=== PATIENT | male | born 1950 | race Caucasian/White ===

== ENCOUNTER 2019-03-13 08:40 | Outpatient (REF) | payer MEDICARE, SELFPAY | END 2019-03-13 08:41 | disposition home or self-care (01) | LOC: LAB 08:40 | PROVIDERS: Family Provider Family Medicine; PCP Family Medicine; Visit Provider Dermatology | DX: Z01.89 Encounter for other specified special examinations (principal) | CPT/HCPCS: 87077; 87086; 87186 ==

== ENCOUNTER 2019-05-01 16:28 | Observation (INO) | payer MEDICARE, SELFPAY ==
[2019-05-01] VITALS (7 sets, daily range): BP systolic 90–138; BP diastolic 41–59; PULSE 48–57; RESP 12–22; TEMP 37; O2SAT 91–97
--- NOTE | 2019-05-01 17:12 | XR_ITS ---
WS: [id number] CHEST XRAY TECHNIQUE: Portable chest. CLINICAL INFORMATION: resp distress COMPARISON: None. FINDINGS: Heart: Normal cardiac silhouette. Aortic calcification. Lungs: Lungs are clear. No consolidation or pleural effusion. Bones: Hypertrophic changes thoracic spine. XR/XR chest 1V portable [id number] IMPRESSION: Normal chest
[2019-05-01] MEDS: ondansetron 2 mg/ML SDV 2 mL 4 MG IVP (18:03)
[2019-05-01] MEDS: sodium chlor 0.9% + KCl 20 mEq 20 MEQ/1,000 ML BAG 200 MEQ IV ×2 (18:04→23:05)
[2019-05-01 18:05] LABS: Basophils % 0.5 %; Eosinophils % 0.7 %; Hematocrit 37.4 % (42.0-52.0); Hemoglobin 12.6 g/dL (11.7-16.6); Lymphocytes # 1.7 10^3/uL (0.8-4.8); Lymphocytes % 29.6 %; Mean Corpuscular HGB Conc 33.7 g/dL (30.0-36.0); Mean Corpuscular Hemoglobin 27.8 pg (28.0-34.0); Mean Corpuscular Volume 82.4 fL (80-94); Mean Platelet Volume 11.4 fL (7.4-10.4); Monocytes # 0.9 10^3/uL (0.2-0.9); Neutrophils % 52.7 %; Nucleated Red Blood Cells % 0 %; Platelet Count 301 10^3/cmm (130-400); Red Blood Count 4.54 10^6/uL (4.1-5.3); Red Cell Distribution Width 13.2 % (12.1-15.1); White Blood Count 5.7 10^3/uL (4.0-10.0)
[2019-05-01 18:22] LABS: Alanine Aminotransferase 15 U/L (0-41); Albumin Level 3.6 g/dL (3.5-5.2); Alkaline Phosphatase 58 IU/L (40-130); Aspartate Amino Transferase 16 U/L (0-40); Blood Urea Nitrogen 51 mg/dL (8-23); C Reactive Protein 63.2 mg/L (0.0-4.9); Calcium 9.1 mg/dL (8.5-10.5); Carbon Dioxide 28 mmol/L (22-29); Chloride 94 mmol/L (98-107); Globulin 3.2 g/dL (1.3-4.6); Glomerular Filtration Rate 37.5 mL/min (90-130); Glucose 101 mg/dL (65-115); Sodium 135 mmol/L (136-145); Total Bilirubin 0.7 mg/dL (0.15-1.2); Total Protein 6.8 g/dL (6.6-8.7)
[2019-05-01] MEDS: finasteride 5 mg Tablet PO (20:04)
[2019-05-01] MEDS: metoprolol tartrate 50 mg Tablet 100 MG PO (20:04)
[2019-05-02] VITALS (8 sets, daily range): BP systolic 120–140; BP diastolic 35–58; PULSE 42–70; RESP 17–21; TEMP 36.3; O2SAT 93–97
[2019-05-02 04:12] LABS: Basophils % 0.5 %; Eosinophils # 0.1 10^3/uL (0.0-0.8); Eosinophils % 1.6 %; Hematocrit 35.5 % (42.0-52.0); Hemoglobin 11.9 g/dL (11.7-16.6); Lymphocytes # 2.1 10^3/uL (0.8-4.8); Lymphocytes % 32.7 %; Mean Corpuscular HGB Conc 33.5 g/dL (30.0-36.0); Mean Corpuscular Hemoglobin 29.2 pg (28.0-34.0); Mean Platelet Volume 11.2 fL (7.4-10.4); Monocytes # 0.9 10^3/uL (0.2-0.9); Monocytes % 13.7 %; Neutrophils # 3.2 10^3/uL (1.8-7.7); Neutrophils % 50.7 %; Nucleated Red Blood Cells % 0 %; Platelet Count 249 10^3/cmm (130-400); Red Blood Count 4.08 10^6/uL (4.1-5.3); Red Cell Distribution Width 13.2 % (12.1-15.1); White Blood Count 6.3 10^3/uL (4.0-10.0)
[2019-05-02 04:36] LABS: Anion Gap 13.1 (5-19); Blood Urea Nitrogen 41 mg/dL (8-23); Calcium 8.6 mg/dL (8.5-10.5); Carbon Dioxide 27 mmol/L (22-29); Chloride 99 mmol/L (98-107); Glomerular Filtration Rate 42.9 mL/min (90-130); Glucose 103 mg/dL (65-115); Osmolality Calculated 280 mOsm/kg (285-295); Potassium 3.1 mmol/L (3.5-5.1); Sodium 136 mmol/L (136-145)
--- NOTE | 2019-05-02 06:59 | P.SS_ITS ---
Short Stay Summary Providers Date of Admit/Discharge: 05/02/19 Attending Provider: Kaleb Daniel MD Primary Care Provider: Kaleb Daniel MD Chief Complaint: FLU/DEHYDRATION HPI History of Present Illness Emanuel Mcneal is a 68 year old male who presents to the clinic yesterday for worsening of his flu type a that had been diagnosed a couple days previously in the clinic. Patient opted not to take his Tamiflu but gave it to his son who gotten ill. Patient had gotten worse with diarrhea and dehydration. He was feeling much worse overall. Is got chronic kidney disease. Decision was made to place him in the hospital for IV fluids overnight. This morning he is feeling much better. His creatinine is improved. He is a little hypokalemic but this is improving as well. His diarrhea seems to have resolved at this time. He is anxious to go home. 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 He sees Dr. Faust for this. He had been on steroids for it. BPH for which she is seeing Dr. Ghotra. Obstructive sleep apnea on CPAP. Hypothyroidism. Hypertension. Hyperlipidemia. Osteoarthritis in his knees. 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 Likes to travel. Quit smoking 1998. [id number] smoking history. Occasional alcohol use. Review of Systems Narrative: General: No chronic fevers or chronic weight changes. HEENT: No acute changes in vision. No acute hearing loss. No new difficulty swallowing. Heart: No new chest pain or recent issues with coronary disease. Lungs: No history of TB. No chronic lung disease. GI: No history of GI bleeding. No hepatitis. No chronic nausea or vomitting. Renal: No dysuria or frequency. No hematuria Neuro: No acute neurological changes or deficits. Musculoskeletal: No acutely worsening joint pain or swelling. Home Meds/Allergies Home Medications and Allergies Home Medications Medication Instructions Recorded Confirmed Type amlodipine 10 mg PO DAILY 05/01/19 05/01/19 History aspirin 81 mg PO DAILY 05/01/19 05/01/19 History chlorthalidone 25 mg PO AC 05/01/19 05/01/19 History finasteride 5 mg PO BID 05/01/19 05/01/19 History levothyroxine 175 mcg PO DAILY 05/01/19 05/01/19 History losartan 100 mg PO DAILY 05/01/19 05/01/19 History metoprolol tartrate 25 mg PO BID 05/01/19 05/01/19 History simvastatin 20 mg PO BEDTIME 05/01/19 05/01/19 History tamsulosin 0.4 mg PO BEDTIME 05/01/19 05/01/19 History Allergies Allergy/AdvReac Type Severity Reaction Status Date / Time No Known Drug Allergies Allergy Unknown Verified 05/01/19 19:05 PFSH Acute PFSH: Medical History (Updated 05/02/19 @ 07:02 by Kaleb Daniel MD) Chronic kidney disease, stage III (moderate) Vitals/I&O/Wt Last Vital Signs Temp 98.6 F 05/01/19 20:00 Pulse 53 L 05/02/19 04:00 Resp 21 H 05/02/19 04:00 BP 127/51 05/02/19 04:00 Pulse Ox 96 05/02/19 04:00 05/01/19 05/01/19 05/02/19 14:59 22:59 06:59 Intake Total 100 / 1340 1240 / 1340 Output Total 850 / 850 Balance 100 / 490 390 / 490 Weight last 48 hrs Weight 9 lb Physical Exam Narrative: EXAM NARRATIVE: General: No acute distress, Alert. Well nourished. HEENT: PERRLA, EOMI. vision grossly normal. Throat clear. Neck: supple, no adenopathy. Heart: Regular rate and rhythm. No murmurs, rubs or gallops. Normal capillary refill. Lungs: Clear to auscultation. No wheezes, rhonchi or rales. Abdomen: Positive bowel sounds. Non-tender, non-distended. No hepatosplenomegaly. No gaurding. Extremities: No clubbing, cyanosis, or edema. Negative Tariq's. Hospital Course Hospital Course: Same as above. Admission diagnoses are same as above. Overall patient has done well with IV fluids. He is feeling much better right now. We will continue with discharge home have him continue Tamiflu for the next 3 days. SSS Data Data Completed and Pending: Pending at discharge Category Date Time Status CXRP [XR chest 1V portable [id number]] S tat Exams 05/01/19 17:12 Taken Diagnoses at Discharge Discharge Diagnosis (1) flu type A: Status: Acute (2) Dehydration: Status: Acute (3) Chronic kidney disease, stage III (moderate): Status: Acute Discharge Plan Discharge Patient Disposition: Home, Self-Care Condition: Stable Prescriptions: New oseltamivir 75 mg Capsule 75 mg PO BID Qty: 6 RF: 0 Continued tamsulosin 0.4 mg Capsule 0.4 mg PO BEDTIME RF: 0 levothyroxine 175 mcg Tablet 175 mcg PO DAILY RF: 0 chlorthalidone 25 mg Tablet 25 mg PO AC RF: 0 simvastatin 20 mg Tablet 20 mg PO BEDTIME RF: 0 aspirin 81 mg Tablet,Chewable 81 mg PO DAILY RF: 0 losartan 100 mg Tablet 100 mg PO DAILY RF: 0 finasteride 5 mg Tablet 5 mg PO BID RF: 0 metoprolol tartrate 25 mg Tablet 25 mg PO BID RF: 0 amlodipine 10 mg 10 mg PO DAILY RF: 0 Discharge Orders: Discharge Order (Routine); Ordered 05/02/19 Ordered By: Kaleb Daniel Referrals: Kaleb Daniel MD [Primary Care Provider] - 4-7 days Discharge Diet: Advance as tolerated Discharge Activity: Resume usual activity Activity Restrictions/Additional Instructions: -Continue all of your home medications the same. -Add 1 new medication of Tamiflu twice a day for the next 3 days. -Call if increasing diarrhea, fevers, chest pain or shortness of breath. -Follow-up with Dr. Daniel in the next few days for repeat labs. Attestations Medical Necessity Statement*: Not needed Time Spent in Patient Care*: greater than 30 min Quality Metrics Clinical Quality Measures: During this hospital stay, did patient experience: None Coding Level of Care Code Acute Structures Mechanic for g Fwd Diagnoses flu type A J10.1 Dehydration E86.0 Chronic kidney disease, stage III (moderate) N18.3
[2019-05-02] MEDS: finasteride 5 mg Tablet PO (07:17)
[2019-05-02] MEDS: sodium chloride 0.9% 500 ML 999 ML IV (07:17)
== END 2019-05-02 09:35 | disposition home or self-care (01) ==
PROVIDERS: Admitting Provider Family Medicine; Family Provider Family Medicine; PCP Family Medicine; Visit Provider Family Medicine
DX: J10.1 Influenza due to other identified influenza virus with other respiratory manifestations (principal); E11.22 Type 2 diabetes mellitus with diabetic chronic kidney disease; N18.3 Chronic kidney disease, stage 3 (moderate); E86.0 Dehydration; E78.5 Hyperlipidemia, unspecified; N40.0 Benign prostatic hyperplasia without lower urinary tract symptoms; G47.33 Obstructive sleep apnea (adult) (pediatric); M17.0 Bilateral primary osteoarthritis of knee; Z79.82 Long term (current) use of aspirin
CPT/HCPCS: 12345; 36415; 71045; 80048; 80053; 85025; 86140; 96360; 96361; 96375; G0378; G0379; J2405; J7040

== ENCOUNTER 2020-07-26 09:04 | Outpatient (RCR) | payer MEDICARE, SELFPAY | END 2020-08-05 23:59 | disposition home or self-care (01) | LOC: SPT 09:04 | PROVIDERS: Family Provider Family Medicine; PCP Family Medicine; Referring Provider Orthopaedic Surgery; Visit Provider Orthopaedic Surgery | DX: Z47.1 Aftercare following joint replacement surgery (principal); Z96.652 Presence of left artificial knee joint | CPT/HCPCS: 97110; 97162 ==

== ENCOUNTER 2020-08-06 06:00 | Outpatient (RCR) | payer MEDICARE, SELFPAY | END 2020-09-04 23:59 | disposition home or self-care (01) | LOC: SPT 06:00 | PROVIDERS: Family Provider Family Medicine; PCP Family Medicine; Referring Provider Orthopaedic Surgery; Visit Provider Orthopaedic Surgery | DX: Z47.1 Aftercare following joint replacement surgery (principal); Z96.652 Presence of left artificial knee joint | CPT/HCPCS: 97110 ==

== ENCOUNTER → 2020-12-20 08:20 | Outpatient (BNVA) | payer MEDICARE, SELFPAY | PROVIDERS: Family Provider Family Medicine; PCP Family Medicine | DX: Z01.812 Encounter for preprocedural laboratory examination (principal); Z11.52 Encounter for screening for COVID-19; Z20.822 Contact with and (suspected) exposure to COVID-19 | CPT/HCPCS: 87426 ==

== ENCOUNTER → 2021-01-29 09:00 | Outpatient (BNVA) | payer MEDICARE, SELFPAY | PROVIDERS: Family Provider Family Medicine; PCP Family Medicine; Visit Provider Emergency Medicine | DX: Z01.812 Encounter for preprocedural laboratory examination (principal); Z20.822 Contact with and (suspected) exposure to COVID-19 | CPT/HCPCS: 87426 ==

== ENCOUNTER → 2021-02-13 09:15 | Outpatient (BNVA) | payer MEDICARE, SELFPAY | PROVIDERS: Family Provider Family Medicine; PCP Family Medicine; Visit Provider Nurse Practitioner Family | DX: Z20.822 Contact with and (suspected) exposure to COVID-19 (principal); I10 Essential (primary) hypertension; N18.9 Chronic kidney disease, unspecified | CPT/HCPCS: 87426 ==

== ENCOUNTER 2021-04-11 09:03 | Outpatient (CLI) | payer MEDICARE, SELFPAY ==
[2021-04-11 11:08] LABS: SARS Covid-2 Antigen Negative (Negative)
== END 2021-04-11 09:04 | disposition home or self-care (01) ==
PROVIDERS: PCP Family Medicine; Visit Provider Nurse Practitioner Family
DX: Z20.822 Contact with and (suspected) exposure to COVID-19 (principal)
CPT/HCPCS: 87426

== ENCOUNTER → 2021-07-09 08:15 | Outpatient (BNVA) | payer MEDICARE, SELFPAY | PROVIDERS: PCP Family Medicine; Visit Provider Internal Medicine Nephrology | DX: N19 Unspecified kidney failure (principal) | CPT/HCPCS: 80069; 82043 ==

== ENCOUNTER → 2021-07-28 08:04 | Outpatient (BNVA) | payer MEDICARE, SELFPAY | PROVIDERS: PCP Family Medicine; Visit Provider Internal Medicine Nephrology | DX: N18.30 Chronic kidney disease, stage 3 unspecified (principal) | CPT/HCPCS: 80069; 84550 ==

== ENCOUNTER 2021-08-07 07:32 | Outpatient (CLI) | payer MEDICARE, SELFPAY ==
--- NOTE | 2021-08-07 09:21 | XRR_ITS ---
PROCEDURE INFORMATION: Exam: XR Right Foot Exam date and time: 08/07/2021 9:24 AM Age: 70 years old Clinical indication: Pain; Ankle and foot; Right; Additional info: Right foot pain TECHNIQUE: Imaging protocol: XR Right foot. Views: 1 or 2 views. COMPARISON: No relevant prior studies available. FINDINGS: Bones/joints: Moderate joint space narrowing without osteophytes at the 1st metatarsophalangeal joint. Mild osteoarthritis at the 2nd through 5th interphalangeal joints. Ill-defined bone erosion along the medial margin of the distal 1st metatarsal. No acute fracture. Soft tissues: Focal soft tissue swelling overlying the 1st metatarsal head. XR/XR foot RT 2V [id number] IMPRESSION: Ill-defined bone erosion in the medial margin of the 1st metatarsal head with adjacent soft tissue swelling. Possible osteomyelitis. Correlate with clinical findings. Gout is also a possibility, but the bone erosion visible here is not typical of gout.
--- NOTE | 2021-08-07 09:21 | XRR_ITS ---
PROCEDURE INFORMATION: Exam: XR Right Ankle Exam date and time: 08/07/2021 9:24 AM Age: 70 years old Clinical indication: Pain; Ankle and foot; Right; Additional info: Right ankle pain TECHNIQUE: Imaging protocol: XR Right ankle. Views: 1 or 2 views. COMPARISON: No relevant prior studies available. FINDINGS: Bones/joints: Alignment is normal. No acute fracture. Soft tissues: Vascular calcification is present. XR/XR ankle RT 2V [id number] IMPRESSION: No acute findings.
[2021-08-08 16:53] LABS: Cyclosporine A Trough Level 53 mcg/L
== END 2021-08-07 07:33 | disposition home or self-care (01) ==
PROVIDERS: PCP Family Medicine; Visit Provider Internal Medicine Nephrology
DX: M79.671 Pain in right foot (principal); N18.32 Chronic kidney disease, stage 3b
CPT/HCPCS: 73600; 73620; 80158

== ENCOUNTER 2021-08-25 07:45 | Outpatient (CLI) | payer MEDICARE, SELFPAY ==
[2021-08-25 08:44] LABS: Basophils % 0.2 %; Eosinophils % 0.2 %; Hematocrit 38.3 % (42.0-52.0); Hemoglobin 12.8 g/dL (11.7-16.6); Lymphocytes # 1.6 10^3/uL (0.8-4.8); Lymphocytes % 12.4 %; Mean Corpuscular HGB Conc 33.4 g/dL (30.0-36.0); Mean Corpuscular Hemoglobin 30.3 pg (28.0-34.0); Mean Corpuscular Volume 90.5 fl (80-94); Mean Platelet Volume 11.6 fL (7.4-10.4); Monocytes # 0.6 10^3/uL (0.2-0.9); Monocytes % 4.9 %; Neutrophils # 10.55 10^3/uL (1.8-7.7); Neutrophils % 81.4 %; Nucleated Red Blood Cells % 0 %; Platelet Count 221 10^3/cmm (130-400); Red Blood Count 4.23 10^6/uL (4.1-5.3); White Blood Count 12.9 10^3/uL (4.0-10.0)
[2021-08-25 09:12] LABS: Albumin Level 3.3 g/dL (3.5-5.2); Blood Urea Nitrogen 41 mg/dL (8-23); Calcium 8.7 mg/dL (8.5-10.5); Carbon Dioxide 29 mmol/L (22-29); Chloride 104 mmol/L (98-107); Glucose 105 mg/dL (65-115); Osmolality Calculated 302 mOsm/kg (285-295); Phosphorus 4.4 mg/dL (2.5-4.5); Sodium 141 mmol/L (136-145); Uric Acid 6.9 mg/dL (3.4-7.0)
[2021-08-25 09:17] LABS: Creatinine Urine, Random 112 mg/dL (39-259)
[2021-08-25 11:43] LABS: Microalbum Creatinine Ratio Ur 7571 mg/dL (0-20); Microalbumin Random Urine 848 ug/dL (0-20)
[2021-08-26 13:53] LABS: Cyclosporine A Trough Level 26 mcg/L
== END 2021-08-25 07:46 | disposition home or self-care (01) ==
LOC: LAB 08:19
PROVIDERS: PCP Family Medicine; Visit Provider Internal Medicine Nephrology
DX: N18.32 Chronic kidney disease, stage 3b (principal)
CPT/HCPCS: 80048; 80069; 80158; 82044; 84550; 85025

== ENCOUNTER 2021-08-26 13:37 | Outpatient (CLI) | payer MEDICARE, SELFPAY ==
[2021-08-26 21:22] LABS: Creatinine Urine, Random 46 mg/dL (39-259)
[2021-08-26 21:34] LABS: Microalbum Creatinine Ratio Ur 5761 mg/dL (0-20); Microalbumin Random Urine 265 ug/dL (0-20)
== END 2021-08-26 13:38 | disposition home or self-care (01) ==
LOC: LAB 13:50
PROVIDERS: PCP Family Medicine; Visit Provider Internal Medicine Nephrology
DX: N18.32 Chronic kidney disease, stage 3b (principal)
CPT/HCPCS: 82044

== ENCOUNTER → 2021-09-09 13:35 | Outpatient (BNVA) | payer MEDICARE, SELFPAY | PROVIDERS: PCP Family Medicine; Visit Provider Family Medicine | DX: R60.9 Edema, unspecified (principal) | CPT/HCPCS: 80048; 83880 ==

== ENCOUNTER 2021-09-11 08:01 | Outpatient (CLI) | payer MEDICARE, SELFPAY ==
[2021-09-11 08:42] LABS: Basophils % 0.1 %; Eosinophils # 0.1 10^3/uL (0.0-0.8); Eosinophils % 0.6 %; Hematocrit 43.2 % (42.0-52.0); Hemoglobin 14.3 g/dL (11.7-16.6); Lymphocytes # 2.8 10^3/uL (0.8-4.8); Lymphocytes % 24.1 %; Mean Corpuscular HGB Conc 33.1 g/dL (30.0-36.0); Mean Corpuscular Hemoglobin 29.9 pg (28.0-34.0); Mean Corpuscular Volume 90.2 fl (80-94); Mean Platelet Volume 10.9 fL (7.4-10.4); Monocytes # 0.7 10^3/uL (0.2-0.9); Monocytes % 6.3 %; Neutrophils # 7.71 10^3/uL (1.8-7.7); Neutrophils % 67.5 %; Nucleated Red Blood Cells % 0 %; Platelet Count 185 10^3/cmm (130-400); Red Blood Count 4.79 10^6/uL (4.1-5.3); Red Cell Distribution Width 13.7 % (12.1-15.1); White Blood Count 11.4 10^3/uL (4.0-10.0)
[2021-09-11 08:58] LABS: Albumin Level 2.9 g/dL (3.5-5.2); Anion Gap 12.4 (5-19); Blood Urea Nitrogen 50 mg/dL (8-23); Calcium 8.1 mg/dL (8.5-10.5); Carbon Dioxide 30 mmol/L (22-29); Chloride 104 mmol/L (98-107); Glucose 75 mg/dL (65-115); Phosphorus 3.8 mg/dL (2.5-4.5); Potassium 3.4 mmol/L (3.5-5.1); Sodium 143 mmol/L (136-145); Uric Acid 6.8 mg/dL (3.4-7.0)
[2021-09-11 09:13] LABS: Creatinine Urine, Random 60 mg/dL (39-259)
[2021-09-11 09:26] LABS: Microalbum Creatinine Ratio Ur 4833 mg/dL (0-20); Microalbumin Random Urine 290 ug/dL (0-20)
[2021-09-12 13:56] LABS: Cyclosporine A Trough Level 90 mcg/L
== END 2021-09-11 08:02 | disposition home or self-care (01) ==
LOC: LAB 08:10
PROVIDERS: PCP Family Medicine; Visit Provider Internal Medicine Nephrology
DX: N18.32 Chronic kidney disease, stage 3b (principal)
CPT/HCPCS: 36415; 80069; 80158; 82044; 84550; 85025

== ENCOUNTER 2021-09-15 14:58 | Outpatient (CLI) | payer MEDICARE, SELFPAY ==
--- NOTE | 2021-09-15 | USCV_ITS ---
Emanuel Mcneal Age: 70 Gender: M : 1950 Exam Date: 09/15/2021 15:39 Ordering Phys: Kaleb Daniel MD Technologist: Radha Cordero Exam Location: [facility] – [place] Indication: chf, fatigue BP: 138 / 72 HR: 67 Rhythm: Sinus Technical Quality: Adequate MEASUREMENTS (Male / Female) Normal Values 2D ECHO LV Diastolic Diameter PLAX 5.0 cm 4.2 - 5.9 / 3.9 - 5.3 cm LV Systolic Diameter PLAX 3.8 cm IVS Diastolic Thickness 1.5 cm 0.6 - 1.0 / 0.6 - 0.9 cm IVS Systolic Thickness 1.9 cm LVPW Diastolic Thickness 1.0 cm 0.6 - 1.0 / 0.6 - 0.9 cm LVPW Systolic Thickness 2.0 cm LVOT Diameter 2.2 cm LV Ejection Fraction 2D Teich 47.3 % LV Ejection Fraction MOD 2C 53.3 % LV Ejection Fraction 2C AL 54.2 % LA Diameter 3.8 cm LA Width 3.8 cm LA Height 4.9 cm RA Width 4.0 cm RA Height 4.5 cm Aorta at Sinotubular Diameter 4.0 cm IVC Diameter 2.2 cm DOPPLER AV Peak Velocity 222.7 cm/s LVOT Peak Velocity 113.0 cm/s AV Area Cont Eq vti 2.2 cm squared AV Area Cont Eq pk 1.9 cm squared MV Peak Velocity 92.0 cm/s MV Area PHT 5.0 cm squared Mitral E to A Ratio 0.4 MV E' Velocity 24.0 cm/s Mitral E to MV E' Ratio 7.8 Mitral E to LV E' Lateral Ratio 6.5 Mitral E to LV E' Septal Ratio 9.8 TR Peak Velocity 222.0 cm/s TR Peak Gradient 19.7 mmHg Right Atrial Pressure 3.0 mmHg Pulmonary Artery Systolic Pressu 22.7 mmHg PV Peak Velocity 56.0 cm/s RV Acceleration Time 0.1 s FINDINGS Left Ventricle Normal left ventricular size and systolic function, EF 57 %. Mild left ventricular hypertrophy. No regional wall motion abnormalities. Grade I/IV diastolic dysfunction (abnormal relaxation filling pattern), normal to mildly elevated filling pressures. Right Ventricle The right ventricle is normal in size and function. Right Atrium The right atrium is normal in size. Left Atrium Mildly increased left atrial size. Mitral Valve Mild to moderate mitral valve regurgitation. Aortic Valve Thickened aortic valve with moderate eccentric aortic regurgitation Tricuspid Valve Trace tricuspid valve regurgitation. Pulmonic Valve Pulmonic valve not well visualized. Pericardium Normal pericardium without effusion. Aorta Normal aortic annulus size. IVC The inferior vena cava pulmonary and hepatic veins appear normal. CONCLUSIONS Normal left ventricular size and systolic function, EF 57 %. Mild left ventricular hypertrophy. No regional wall motion abnormalities. Grade I/IV diastolic dysfunction (abnormal relaxation filling pattern), normal to mildly elevated filling pressures. Mildly increased left atrial size. Mild to moderate mitral valve regurgitation. Trace tricuspid valve regurgitation. Estimated pulmonary artery peak systolic pressure of 23 mmHg Thickened aortic valve with moderate eccentric aortic regurgitation. Dr Danuat Welch MD [facility] (Electronically Signed) Final Date: 18 September 2021 19:16 S
== END 2021-09-15 14:59 | disposition home or self-care (01) ==
PROVIDERS: PCP Family Medicine; Visit Provider Family Medicine
DX: I50.9 Heart failure, unspecified (principal)
CPT/HCPCS: 93306

== ENCOUNTER 2021-10-13 09:03 | Outpatient (CLI) | payer MEDICARE, SELFPAY ==
[2021-10-13 10:13] LABS: Creatinine Urine, Random 33 mg/dL (39-259)
[2021-10-13 10:20] LABS: Albumin Level 3.1 g/dL (3.5-5.2); Anion Gap 13.5 (5-19); Blood Urea Nitrogen 19 mg/dL (8-23); Carbon Dioxide 29 mmol/L (22-29); Chloride 106 mmol/L (98-107); Glucose 126 mg/dL (65-115); Potassium 3.5 mmol/L (3.5-5.1); Sodium 145 mmol/L (136-145)
[2021-10-13 10:26] LABS: Microalbum Creatinine Ratio Ur 4000 mg/dL (0-20); Microalbumin Random Urine 132 ug/dL (0-20)
== END 2021-10-13 09:04 | disposition home or self-care (01) ==
LOC: LAB 09:06
PROVIDERS: PCP Family Medicine; Visit Provider Internal Medicine Nephrology
DX: N18.32 Chronic kidney disease, stage 3b (principal)
CPT/HCPCS: 80069; 82044

== ENCOUNTER 2021-11-30 18:57 | Inpatient (IN) | payer MEDICARE, SELFPAY ==
[2021-11-30] VITALS (8 sets, daily range): BP systolic 154–194; BP diastolic 63–105; PULSE 81–98; RESP 20–27; TEMP 37.3–38.4; O2SAT 92–96; BMI 34.0
--- NOTE | 2021-11-30 19:02 | ECG_ITS ---
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 Measurements Intervals [place] Rate: 100 P: 55 OR: 155 QRS: 30 QRSD: 112 T: 109 QT: 344 QTc: 444 Interpretive Statements SINUS TACHYCARDIA WITH OCCASIONAL VENTRICULAR PREMATURE COMPLEXES MODERATE INTRAVENTRICULAR CONDUCTION DELAY [110+ ms QRS DURATION] MODERATE T-WAVE ABNORMALITY, CONSIDER LATERAL ISCHEMIA [-0.1+ mV T-WAVE IN I/aVL/V5/V6] INTERPRETATION BASED ON A DEFAULT AGE OF 40 YEARS No previous ECG available for comparison Electronically Signed On 12-02-2021 0:04:48 CDT by Danuta Welch M.D. [id number]
--- NOTE | 2021-11-30 19:03 | XRR_ITS ---
PROCEDURE INFORMATION: Exam: XR Chest Exam date and time: 11/30/2021 7:15 PM Age: 71 years old Clinical indication: Shortness of breath; Additional info: SOB TECHNIQUE: Imaging protocol: Radiologic exam of the chest. Views: 1 view. COMPARISON: CR XR chest 1V portable [id number] 05/01/2019 5:37 PM FINDINGS: Lungs: Interval development of bilateral lower lobe patchy atelectasis versus pneumonia, worse on the right. Pleural spaces: No pleural effusion. No pneumothorax. Heart/Mediastinum: Stable moderate enlargement of the cardiac silhouette. Mediastinal contours are unremarkable. Vasculature: Stable vascular calcifications in the aorta. Bones/joints: Unremarkable for age. XR/XR chest 1V portable [id number] IMPRESSION: 1. Interval development of bilateral lower lobe patchy atelectasis versus pneumonia, worse on the right. Recommend clinical correlation. Recommend followup chest imaging to insure resolution of these findings. 2. Incidental/nonacute findings are listed in the report.
--- NOTE | 2021-11-30 19:06 | ED_ITS ---
HPI - SOB/Dyspnea General: Chief Complaint: Shortness of Breath/Dyspnea Stated Complaint: DIFF BREATHING Time Seen by Provider: 11/30/21 18:58 Source: patient and EMS Mode of arrival: EMS Limitations: no limitations History of Present Illness: HPI Narrative: 71-year-old male who has a history of congestive heart failure along with stage III kidney disease he is on dialysis he states he was recently on a cruise and states that since being back throughout the day today he has had a cough along with low-grade fevers and increased shortness of breath he is on oxygen at home he is requiring 2 to 3 L here. He denies any vomiting or diarrhea he is able speak in full sentences here. Associated symptoms: Deny abdominal pain, chest pain, fever(s), nausea or vomiting Review of Systems Const: Denies: fever(s), chills, body aches or change in appetite Eyes: Denies: blurry vision or eye discomfort ENMT: Denies: throat pain or dental pain Card: Denies: chest pain Resp: Reports: dyspnea GI: Denies: abdominal pain, nausea, vomiting or diarrhea : Denies: dysuria Musc: Denies: neck pain or back pain Skin/Breast: Denies: rash Neuro: Denies: headache(s) Psych: Denies: depression Tylor/Lymph: Denies: easy bruising All/Imm: Denies: urticaria PFSH ED PFSH: Medical History Chronic kidney disease, stage III (moderate) Gout Hypertension Social History (Updated 11/30/21 @ 19:07 by Sara Haas MD) Substance/Drug Use: never Physical Exam Const: COMMON NORMALS: no acute distress, patient oriented x3 and healthy appearing HENMT: COMMON NORMALS: normocephalic and atraumatic HEAD & SCALP: normocephalic and atraumatic Eye: COMMON NORMALS: Equal, round and reactive pupils present and EOMs intact bilaterally PUPIL: Yes Equal, round and reactive pupils present Neck/C-Spine: COMMON NORMALS: full ROM and supple Chest: COMMONS NORMALS: normal inspection of the chest and normal palpation of entire chest wall Resp: COMMON NORMALS: normal respiratory effort, No retractions, No use of accessory muscles and clear to auscultation bilaterally AUSCULTATION: clear to auscultation bilaterally Cardio: COMMON NORMALS: regular rate, regular rhythm and No murmurs present (Cardio) RATE: regular rate RHYTHM: regular rhythm GI: COMMON NORMALS: Normal to inspection, nondistended, normoactive bowel sounds present, Soft to palpation, non-tender and no masses PALPATION: Yes Soft to palpation Extremity: COMMON NORMALS: normal to inspection and full ROM Neuro: COMMON NORMALS: patient oriented x3, moves all extremities and no focal motor deficits Psych: COMMON NORMALS: mental status grossly normal, Normal thought process present and cooperative THOUGHT PROCESS: Normal thought process present Skin: COMMON NORMALS: no rashes or lesions noted and no wounds GENERAL SKIN EXAM: no rashes or lesions noted Course Vital Signs: Vital signs: Vital Signs Temperature 101.1 F H 11/30/21 18:59 Pulse Rate 93 11/30/21 20:12 Respiratory Rate 21 H 11/30/21 20:12 Blood Pressure 154/68 11/30/21 20:12 Pulse Oximetry 93 11/30/21 20:12 Oxygen Delivery Me thod 11/30/21 20:12 Oxygen Flow Rate 3 11/30/21 18:59 MDM - SOB/Dyspnea Medical Decision Making Patient presents here with cough fever along with some shortness of breath x-ray appears to be bilateral pneumonia spoke to hospitalist will admit as he is requiring oxygen patient started on IV antibiotics. Lab Data : 11/30/21 19:04 11/30/21 19:04 Labs/Radiology: Radiology Impressions Chest X-Ray 11/30/21 19:03 IMPRESSION: 1. Interval development of bilateral lower lobe patchy atelectasis versus pneumonia, worse on the right. Recommend clinical correlation. Recommend followup chest imaging to insure resolution of these findings. 2. Incidental/nonacute findings are listed in the report. Laboratory Results WBC 12.0 10^3/uL (4.0-10.0) H 11/30/21 19:04 RBC 4.45 10^6/uL (4.1-5.3) 11/30/21 19:04 Hgb 13.0 g/dL (11.7-16.6) 11/30/21 19:04 Hct 40.4 % (42.0-52.0) L 11/30/21 19:04 MCV 90.8 fl (80-94) 11/30/21 19:04 MCH 29.2 pg (28.0-34.0) 11/30/21 19:04 MCHC 32.2 g/dL (30.0-36.0) 11/30/21 19:04 RDW 13.2 % (12.1-15.1) 11/30/21 19:04 Plt Count 294 10^3/cmm (130-400) 11/30/21 19:04 MPV 12.3 fL (7.4-10.4) H 11/30/21 19:04 Neut % (Auto) 67.0 % 11/30/21 19:04 Lymph % (Auto) 23.4 % 11/30/21 19:04 Canadian % (Auto) 7.3 % 11/30/21 19:04 Eos % (Auto) 1.5 % 11/30/21 19:04 Baso % (Auto) 0.5 % 11/30/21 19:04 Neut # (Auto) 8.04 10^3/uL (1.8-7.7) H 11/30/21 19:04 Lymph # (Auto) 2.8 10^3/uL (0.8-4.8) 11/30/21 19:04 Canadian # (Auto) 0.9 10^3/uL (0.2-0.9) 11/30/21 19:04 Eos # (Auto) 0.2 10^3/uL (0.0-0.8) 11/30/21 19:04 Baso # (Auto) 0.1 10^3/uL (0.0-0.1) 11/30/21 19:04 Nucleated RBC % (auto) 0 % 11/30/21 19:04 Nucleated RBCs # 0.0 /100WBC 11/30/21 19:04 PT 13.20 SECONDS (12.1-14.9) 11/30/21 19:04 INR 0.97 (0.8-1.2) 11/30/21 19:04 Sodium 144 mmol/L (136-145) 11/30/21 19:04 Potassium 3.9 mmol/L (3.5-5.1) 11/30/21 19:04 Chloride 103 mmol/L (98-107) 11/30/21 19:04 Carbon Dioxide 28 mmol/L (22-29) 11/30/21 19:04 Anion Gap 16.9 (5-19) 11/30/21 19:04 BUN 28 mg/dL (8-23) H 11/30/21 19:04 Creatinine 1.6 mg/dL (0.7-1.2) H 11/30/21 19:04 GFR Calculation Not Reportable 11/30/21 19:04 Glucose 105 mg/dL (65-115) 11/30/21 19:04 Calculated Osmolality 304 mOsm/kg (285-295) H 11/30/21 19:04 Lactic Acid 1.0 mmol/L (0.5-2.2) 11/30/21 19:29 Calcium 9.6 mg/dL (8.5-10.5) 11/30/21 19:04 Total Bilirubin 1.0 mg/dL (0.15-1.2) 11/30/21 19:04 AST 14 U/L (0-40) 11/30/21 19:04 ALT 8 U/L (0-41) 11/30/21 19:04 Alkaline Phosphatase 79 U/L (40-130) 11/30/21 19:04 Troponin T Baseline 55 ng/L (0-15) H 11/30/21 19:04 NT-Pro-B Natriuret Pep 9461 pg/mL (0-125) H 11/30/21 19:04 Total Protein 6.5 g/dL (6.6-8.7) L 11/30/21 19:04 Albumin 3.8 g/dL (3.5-5.2) 11/30/21 19:04 Globulin 2.7 g/dL (1.3-4.6) 11/30/21 19:04 SARS-CoV-2 Ag (Rapid) Negative (Negative) 11/30/21 19:04 EKG Data EKG 1: I personally reviewed and interpreted this EKG as follows: EKG Interpretation Date: 11/30/21 EKG interpretation time: 19:05 Interpretation: sinus tach hr [address] or t wave abnormalities qrs 112 qtc 401 Discharge Plan Discharge Patient Disposition: Admitted As Inpatient Admit Provider: Lucien Bush Clinical Impression: Pneumonia, Acute respiratory failure with hypoxemia Condition: Stable Coding Level of Care Code ED Bullet Assembly Press Operator for Chg Fwd Exam Comprehensive
[2021-11-30 19:13] LABS: Basophils # 0.1 10^3/uL (0.0-0.1); Basophils % 0.5 %; Eosinophils # 0.2 10^3/uL (0.0-0.8); Eosinophils % 1.5 %; Hematocrit 40.4 % (42.0-52.0); Lymphocytes # 2.8 10^3/uL (0.8-4.8); Lymphocytes % 23.4 %; Mean Corpuscular HGB Conc 32.2 g/dL (30.0-36.0); Mean Corpuscular Hemoglobin 29.2 pg (28.0-34.0); Mean Corpuscular Volume 90.8 fl (80-94); Mean Platelet Volume 12.3 fL (7.4-10.4); Monocytes # 0.9 10^3/uL (0.2-0.9); Monocytes % 7.3 %; Neutrophils # 8.04 10^3/uL (1.8-7.7); Nucleated Red Blood Cells % 0 %; Platelet Count 294 10^3/cmm (130-400); Red Blood Count 4.45 10^6/uL (4.1-5.3); Red Cell Distribution Width 13.2 % (12.1-15.1)
[2021-11-30 19:24] LABS: INR 0.97 (0.8-1.2)
[2021-11-30] MEDS: acetaminophen 325 mg Tablet 650 MG PO (19:34)
[2021-11-30] MEDS: azithromycin 500 MG in sodium chloride 0.9% 250 ML 250 MG IV (19:34)
[2021-11-30] MEDS: cefTRIAXone 1,000 MG in sodium chloride 0.9% (plus) 50 ML 100 MG IV (19:34)
[2021-11-30 19:37] LABS: Troponin(5th) Baseline 55 ng/L (0-15)
[2021-11-30 19:41] LABS: SARS Covid-2 Antigen Negative (Negative)
[2021-11-30 19:46] LABS: Alanine Aminotransferase 8 U/L (0-41); Albumin Level 3.8 g/dL (3.5-5.2); Alkaline Phosphatase 79 U/L (40-130); Anion Gap 16.9 (5-19); Aspartate Amino Transferase 14 U/L (0-40); Blood Urea Nitrogen 28 mg/dL (8-23); Calcium 9.6 mg/dL (8.5-10.5); Carbon Dioxide 28 mmol/L (22-29); Chloride 103 mmol/L (98-107); Globulin 2.7 g/dL (1.3-4.6); Glucose 105 mg/dL (65-115); NT Pro B Type Natriuretic Pept 9461 pg/mL (0-125); Osmolality Calculated 304 mOsm/kg (285-295); Potassium 3.9 mmol/L (3.5-5.1); Sodium 144 mmol/L (136-145); Total Protein 6.5 g/dL (6.6-8.7)
--- NOTE | 2021-11-30 19:46 | PC.NURSE ---
patient states he feels sudden severe nausea, emesis bag given, no vomiting at this time. offered cool rag, patient declined, dr uriarte notified, awaiting new orders.
[2021-11-30] MEDS: ondansetron 2 mg/ML SDV 2 mL 4 MG IVP (19:51)
--- NOTE | 2021-11-30 19:51 | PC.NURSE ---
patient assisted to sitting position, nausea without emesis persists, ordered medication given.
--- NOTE | 2021-11-30 20:30 | PC.NURSE ---
report called to Mirna TEAGUE, accepted to Med surg [phone].
--- NOTE | 2021-11-30 21:02 | ECG_ITS ---
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 Measurements Intervals [place] Rate: 83 P: 46 ID: [id number] QRS: 20 QRSD: 106 T: 137 QT: 394 QTc: 465 Interpretive Statements SINUS RHYTHM WITH OCCASIONAL VENTRICULAR PREMATURE COMPLEXES MODERATE T-WAVE ABNORMALITY, CONSIDER ANTEROLATERAL ISCHEMIA [-0.1+ mV T-WAVE IN V3-V6] No previous ECG available for comparison Electronically Signed On 12-02-2021 0:19:36 CDT by Danuta Welch M.D. [id number]
--- NOTE | 2021-11-30 21:24 | USCV_ITS ---
Emanuel Mcneal Age: 71 Gender: M : 1950 Exam Date: 11/30/2021 22:14 Ordering Phys: Lucien Bush MD Technologist: Heike Daniel Exam Location: [facility] [place] Indication: SOB BP: 164 / 75 HR: 83 Rhythm: Sinus Technical Quality: Adequate MEASUREMENTS (Male / Female) Normal Values 2D ECHO LV Diastolic Diameter PLAX 5.0 cm 4.2 - 5.9 / 3.9 - 5.3 cm LV Systolic Diameter PLAX 3.0 cm LV Chamber Size 5.3 cm IVS Diastolic Thickness 1.2 cm 0.6 - 1.0 / 0.6 - 0.9 cm IVS Systolic Thickness 1.6 cm LVPW Diastolic Thickness 1.8 cm 0.6 - 1.0 / 0.6 - 0.9 cm LVPW Systolic Thickness 2.3 cm RV Chamber Size 2.9 cm LVOT Diameter 2.1 cm LV Ejection Fraction 2D Teich 71.2 % LV Ejection Fraction MOD 2C 60.3 % LV Ejection Fraction 2C AL 60.8 % LA Diameter 4.6 cm LA Width 3.7 cm LA Height 3.7 cm RA Width 2.5 cm RA Height 3.7 cm Aorta at Sinotubular Diameter 3.3 cm IVC Diameter 2.3 cm M-MODE Aortic Annulus Diameter 3.9 cm LA Ao Ratio MM 1.3 MV E Point Septal Separation 1.2 cm DOPPLER AV Peak Velocity 280.0 cm/s LVOT Peak Velocity 95.0 cm/s AV Area Cont Eq vti 1.7 cm squared AV Area Cont Eq pk 1.2 cm squared MV Area PHT 3.5 cm squared Mitral E to A Ratio 0.9 MV E' Velocity 40.5 cm/s Mitral E to MV E' Ratio 10.5 Mitral E to LV E' Lateral Ratio 10.5 Mitral E to LV E' Septal Ratio 10.5 TR Peak Velocity 178.2 cm/s TR Peak Gradient 12.7 mmHg TR Mean Velocity 134.3 cm/s TR Mean Gradient 8.0 mmHg TR Velocity Time Integral 44.2 cm TV Peak E Velocity 59.0 cm/s Right Atrial Pressure 3.0 mmHg Pulmonary Artery Systolic Pressu 15.7 mmHg RV Acceleration Time 0.1 s RV Ejection Time 0.4 s RV AcT/ET 0.3 FINDINGS Left Ventricle Normal left ventricular size with a borderline low ejection fraction of 51%. Mild diffuse hypokinesia of the inferolateral wall.mild left ventricular hypertrophy. Grade I/IV diastolic dysfunction (abnormal relaxation filling pattern), normal to mildly elevated filling pressures. Right Ventricle The right ventricle is normal in size and function. Right Atrium The right atrium is normal in size. Left Atrium Mildly increased left atrial size. Mitral Valve Thickened mitral valve. Mild mitral valve regurgitation. Aortic Valve Thickened aortic valve. Moderate aortic valve regurgitation. Pressure half-time of 437 ms Tricuspid Valve No gross abnormalities noted Pulmonic Valve Pulmonic valve not well visualized. Pericardium No pericardial effusion. Aorta Normal aortic annulus size. IVC Inferior vena cava not visualized. CONCLUSIONS Normal left ventricular size with a borderline low ejection fraction of 51%. Mild diffuse hypokinesia of the inferolateral wall. Mild left ventricular hypertrophy. Grade I/IV diastolic dysfunction (abnormal relaxation filling pattern), normal to mildly elevated filling pressures. Thickened aortic valve. Moderate aortic valve regurgitation. Pressure half-time of 437 ms. Thickened mitral valve. Mild mitral valve regurgitation. There is no pericardial effusion. There are no intracardiac masses. Compared to the study from 09/15/2021, the wall motion abnormality appeared to be new Dr Danuta Welch MD [facility] (Electronically Signed) Final Date: 01 December 2021 08:47 S
--- NOTE | 2021-11-30 21:28 | P.HP_ITS ---
Providers/Chief Complaint Admitting Physician: Lucien Bush MD Primary Care Provider: Kaleb Daniel MD Chief Complaint: DIFF BREATHING History of Present Illness Emanuel Mcneal is a 71 year old male with a past medical history of focal segmental glomerulosclerosis and CKD on cyclosporine, history of chronic prednisone use, history of gout, history of hypertension, hypothyroidism, history of dyslipidemia who presents to [facility] who presents [facility] for cough, fevers, shortness of breath. Patient tells me that he was on a cruise, to [place], went to [place], when a few days into his cruise, he started to have fevers, shortness of breath, cough, fatigue, malaise. He was evacuated off the boat and went to hospital in [place], where they evaluated him, there was concern for his elevated BNP, there was no specific interventions, he continues to have symptomatology, but was able to get back [place]. In the emergency room he was found to have a pneumonia, requiring 3 L, COVID-19 test was negative, hospitalist team was called for admission. Review of Systems Const: Reports: fever(s), fatigue and malaise Card: Denies: chest pain Resp: Reports: dyspnea and non-productive cough Medications/Allergies Home Medications Medication Instructions Recorded Confirmed Last Taken Type amlodipine 10 mg PO DAILY 05/01/19 11/12/21 05/01/19 08:00 History aspirin 81 mg chewable tablet 81 mg PO DAILY 05/01/19 11/12/21 04/30/19 18:00 History chlorthalidone 25 mg tablet 25 mg PO AC 05/01/19 11/12/21 05/01/19 08:00 History levothyroxine 175 mcg tablet 175 mcg PO DAILY 05/01/19 11/12/21 05/01/19 08:00 History tamsulosin 0.4 mg capsule 0.4 mg PO BEDTIME 05/01/19 11/12/21 05/01/19 History allopurinol 300 mg tablet 150 mg PO DAILY 08/04/21 11/12/21 Unknown History furosemide 80 mg tablet 40 mg PO DAILY 09/20/21 11/12/21 Unknown History metoprolol tartrate 100 mg tablet 100 mg PO BID 09/20/21 11/12/21 Unknown History cyclosporine 100 mg capsule 100 mg PO BID #60 caps 11/11/21 11/12/21 Unknown Rx cyclosporine 25 mg capsule 25 mg PO BID #60 caps 11/11/21 11/12/21 Unknown Rx finasteride 5 mg tablet 5 mg PO DAILY 11/11/21 11/12/21 Unknown History cyclosporine 100 mg capsule 100 mg PO BID #60 caps 11/12/21 11/12/21 Unknown Rx cyclosporine 25 mg capsule 25 mg PO BID #60 caps 11/12/21 11/12/21 Unknown Rx Allergies Allergy/AdvReac Type Severity Reaction Status Date / Time No Known Drug Allergies Allergy Unknown Verified 11/30/21 20:26 PFSH Acute PFSH: Medical History (Updated 11/30/21 @ 21:35 by Lucien Bush MD) Chronic kidney disease, stage III (moderate) Gout Hypertension Surgical History (Updated 11/30/21 @ 21:34 by Lucien Bush MD) No pertinent past surgical history Social History (Updated 11/30/21 @ 19:07 by Sara Haas MD) Substance/Drug Use: never Vitals/I&O/Wt Last Vital Signs Temp 99.1 F 11/30/21 21:12 Pulse 85 11/30/21 21:12 Resp 20 H 11/30/21 21:12 BP 164/75 11/30/21 21:12 Pulse Ox 96 11/30/21 21:12 O2 Del Method 11/30/21 21:12 O2 Flow Rate 2.5 11/30/21 21:12 11/30/21 11/30/21 11/30/21 06:59 14:59 22:59 Intake Total 300 / 300 Balance 300 / 300 Weight last 48 hrs Weight 104.326 kg Physical Exam Const: COMMON NORMALS: no acute distress and patient oriented x3 HENMT: COMMON NORMALS: normocephalic HEAD & SCALP: normocephalic Eye: COMMON NORMALS: Equal, round and reactive pupils present and EOMs intact bilaterally Neck/C-Spine: COMMON NORMALS: no JVD Resp: COMMON NORMALS: normal respiratory effort, No retractions and No use of accessory muscles AUSCULTATION: crackles Cardio: COMMON NORMALS: no JVD, regular rate, regular rhythm, S1 normal heart sound present and S2 normal heart sound present RATE: regular rate RHYTHM: regular rhythm HEART SOUNDS: S1 normal heart sound present and S2 normal heart sound present GI: COMMON NORMALS: Normal to inspection, nondistended, normoactive bowel sounds present, Soft to palpation, non-tender, No hepatosplenomegaly present, no masses and no bruits PALPATION: Yes Soft to palpation and Yes No hepatosplenomegaly present Extremity: COMMON NORMALS: capillary refill normal, no clubbing, cyanosis or edema, no calf tenderness and no pedal edema Neuro: COMMON NORMALS: patient oriented x3, CN's II-XII intact bilaterally and moves all extremities Psych: COMMON NORMALS: mental status grossly normal Data : 11/30/21 19:04 11/30/21 19:04 Micro: Microbiology 11/30/21 19:32 Blood Culture - Preliminary Blood SPECIMEN COLLECTED 11/30/21 19:29 Blood Culture - Preliminary Blood SPECIMEN COLLECTED A&P Assessment and plan (1) Pneumonia: (2) Acute respiratory failure with hypoxemia: (3) Hypertension: (4) Gout: (5) Chronic kidney disease, stage III (moderate): (6) Edema: (7) CHF (congestive heart failure): Plan Acute respiratory failure with hypoxia -Likely secondary to pneumonia -No other family member sick, but does have Legionella risk factors -In addition does have norovirus risk factors Plan -Continue oxygen therapy -Rocephin and azithromycin -Sputum cultures, blood cultures, urine bacterial antigen, viral respiratory panel -Monitor respiratory status closely -Continue DuoNeb treatment - full code -Heparin for DVT prophylaxis NSTEMI, serial EKGs, serial troponins, telemetry monitoring, cardiac echo Does have bilateral lower extremity edema, 1+, does have evidence of fluid overload on chest x-ray, elevated BNP -We will do Lasix 40 mg IV push once monitor urine output monitor potassium, monitor mag, monitor creatinine -We will daily dose Lasix CKD, creatinine 1.6, focal segmental glomerulosclerosis -No history of kidney transplant -I will hold cyclosporine as there is evidence of pneumonia and infection Hypertension, continue metoprolol Attestations Medical Necessity Statement*: Patient requires hospitalization, inpatient, greater than 2 midnights, for acute hypoxic respiratory failure Coding Level of Care Code Acute Business Trainer for [facility] Diagnoses Pneumonia J18.9 Acute respiratory failure with hypoxemia J96.01 Hypertension I10 Gout M10.9 Chronic kidney disease, stage III (moderate) N18.3 Edema R60.9 CHF (congestive heart failure) I50.9
[2021-11-30 21:46] LABS: Troponin 5 2HR 52.95 ng/L (0-15)
[2021-11-30 21:50] LABS: Troponin 5 2HR Delta -2.05 ABS# (0-10)
[2021-11-30 22:04] LABS: Procalcitonin 0.07 ng/mL (0-0.5); Thyroid Stimulating Hormone 0.03 uIU/mL (0.27-4.20)
[2021-11-30] MEDS: heparin 5,000 unit/mL INJ 1 mL 5000 UNIT SUBCUT (22:06)
[2021-11-30] MEDS: FUROsemide 10 mg/mL SDV 4mL 40 MG IVP (22:08)
[2021-11-30 22:15] LABS: C Reactive Protein 42.7 mg/L (0.0-4.9)
[2021-11-30 23:21] LABS: Influenza A by IFA Negative (Negative); Influenza B by IFA Negative (Negative)
[2021-12-01] VITALS (11 sets, daily range): BP systolic 100–174; BP diastolic 44–73; PULSE 66–87; RESP 15–20; TEMP 36.4–37.4; O2SAT 85–97; BMI 24.0
--- NOTE | 2021-12-01 01:02 | ECG_ITS ---
[facility] Test Date: 2021-12-01 Pat Name: Emanuel Mcneal Department: Room: 255 Gender: Male Regulatory Compliance Specialist: : [id number] Requested By: Sara Haas Order Number: [id number] Yosvany MD: Danuta Welch M.D. Measurements Intervals [place] Rate: 82 P: 58 FL: 154 QRS: 46 QRSD: 106 T: 163 QT: 402 QTc: 470 Interpretive Statements SINUS RHYTHM WITH OCCASIONAL VENTRICULAR PREMATURE COMPLEXES MODERATE T-WAVE ABNORMALITY, CONSIDER ANTEROLATERAL ISCHEMIA [-0.1+ mV T-WAVE IN V3-V6] Compared to ECG 11/30/2021 21:25:37 No significant changes Electronically Signed On 12-02-2021 0:20:08 CDT by Danuta Welch M.D. [id number]
[2021-12-01 01:26] LABS: Basophils % 0.4 %; Eosinophils # 0.1 10^3/uL (0.0-0.8); Eosinophils % 0.8 %; Hematocrit 34.8 % (42.0-52.0); Hemoglobin 10.9 g/dL (11.7-16.6); Lymphocytes # 1.8 10^3/uL (0.8-4.8); Lymphocytes % 18.8 %; Mean Corpuscular HGB Conc 31.3 g/dL (30.0-36.0); Mean Corpuscular Hemoglobin 29.3 pg (28.0-34.0); Mean Corpuscular Volume 93.5 fl (80-94); Mean Platelet Volume 11.5 fL (7.4-10.4); Monocytes # 0.7 10^3/uL (0.2-0.9); Monocytes % 7.1 %; Neutrophils # 6.91 10^3/uL (1.8-7.7); Neutrophils % 72.5 %; Nucleated Red Blood Cells % 0 %; Platelet Count 225 10^3/cmm (130-400); Red Blood Count 3.72 10^6/uL (4.1-5.3); Red Cell Distribution Width 13.2 % (12.1-15.1); White Blood Count 9.6 10^3/uL (4.0-10.0)
[2021-12-01 01:35] LABS: Adenovirus Not Detected (NOT DETECT); Chlamydia Pneumoniae Not Detected (NOT DETECT); Coronavirus 229E,HKU1,NL63,OC4 Not Detected (NOT DETECT); Human Metapneumovirus Not Detected (NOT DETECT); Human Rhinovirus/Enterovirus Detected (NOT DETECT); Influenza A Not Detected (NOT DETECT); Influenza A H1 Not Detected (NOT DETECT); Influenza A H1-2009 Not Detected (NOT DETECT); Influenza A H3 Not Detected (NOT DETECT); Influenza B Not Detected (NOT DETECT); Mycoplasma Pneumoniae Not Detected (NOT DETECT); Parainfluenza Virus Type 1 Not Detected (NOT DETECT); Parainfluenza Virus Type 2 Not Detected (NOT DETECT); Parainfluenza Virus Type 3 Not Detected (NOT DETECT); Parainfluenza Virus Type 4 Not Detected (NOT DETECT); Respiratory Syncytial Virus A Not Detected (NOT DETECT); Respiratory Syncytial Virus B Not Detected (NOT DETECT); SARS-COV-2 Not Detected (NOT DETECT)
[2021-12-01 01:48] LABS: Troponin 5 6HR 49.21 ng/L (0-15)
[2021-12-01 01:55] LABS: Anion Gap 14.7 (5-19); Blood Urea Nitrogen 24 mg/dL (8-23); Calcium 8.6 mg/dL (8.5-10.5); Carbon Dioxide 26 mmol/L (22-29); Chloride 104 mmol/L (98-107); Glucose 143 mg/dL (65-115); NT Pro B Type Natriuretic Pept 11517 pg/mL (0-125); Osmolality Calculated 299 mOsm/kg (285-295); Potassium 3.7 mmol/L (3.5-5.1); Sodium 141 mmol/L (136-145)
[2021-12-01 01:58] LABS: Troponin 5 6HR Delta -5.79 ng/L (0-12)
[2021-12-01] MEDS: allopurinol 300 mg Tablet 150 MG PO (09:02)
[2021-12-01] MEDS: levothyroxine 175 mcg Tablet PO (09:03)
[2021-12-01] MEDS: aspirin 81 mg Chew Tablet PO (09:04)
[2021-12-01] MEDS: heparin 5,000 unit/mL INJ 1 mL 5000 UNIT SUBCUT ×2 (09:04→21:10)
[2021-12-01] MEDS: metoprolol tartrate 50 mg Tablet 100 MG PO ×2 (09:04→17:53)
--- NOTE | 2021-12-01 10:40 | PC.PHAR ---
pt brought in a med list that he states is accurate-pt states the zocor 20mg daily was dced ext med history shows last filled 11/20/21 90d/s-pt states he is unsure if he is taking chlorthalidone 25mg daily ext med history shows last filled 08/23/21 90d/s medication not on med list pt brought in -pt states finasteride was dced finasteride 5mg daily written on 11/11/21 and ext med history shows filled 11/11/21 90d/s for 5mg bid pt states dced-pt states he takes 80mg qam of lasix rx filled 80mg bid on 11/20/21 90d/s-pt states he is no longer taking prednisone 5mg daily filled on 09/17/21 30d/s-notes are made in the pharmacy comments
--- NOTE | 2021-12-01 11:28 | PC.CHAP ---
Pastoral Care Encounter/Spiritual Assessment Type of Contact [] Declined classification inspector visit [] Patient/Family/Request visit [] Outpatient visit [] Follow-up visit [] Physician referral [] Code/Alert [x] Routine visit [] Staff referral [] Actively dying [] Patient sleeping [] Family support [] [] Out of room [] Palliative care [] [] Receiving care in room [] Pre-surgical visit [] Trauma [] Long length of stay [] ICU visit [] Other: Relational/Emotional Strength [x] Patient feels connected with others/family/visitors/staff [] Distress [] Loneliness/isolation [] Abandonment Spirituality of Patient [x Person of [place] [x] Attends Yazdanism of their [place] [x] Believes in Prayer [] Reads Bible or Adventist materials [] There are Spiritual issues to be addressed Valuation Manager Interventions [x] Prayer [] Active listening [] Non-anxious presence [] Spiritual/emotional support [] Crisis/trauma care [] Spiritual counseling [] Bereavement support [] Provided bereavement packet [] Provided Bible/devotional materials [] Provided toy/stuffed animal, coloring book to patient or family member x [] Provided Communion [] Anointing/[place] [] Salvation [x] Completed spiritual assessment [] Other: Impact on Illness or Injury [] Angry [] Fearful [] Anxious [] Often cries [] Exhaustion [] Unable to work [] Unable to attend mosque [] Unable to walk/stand [] Unable to read [] Unable to drive [] Unable to eat/drink [] Unable to sleep [] Unable to be with family [] Patient intubated [] Other: Summary Time spent with patient 15 min
--- NOTE | 2021-12-01 21:00 | P.PN_ITS ---
Subjective Subjective: He is doing slightly better. Swelling with some improvement. He has been urinating well. He has been having cough. Denies nausea vomiting or diarrhea. Denies chest pain or pressure. Recently with lower extremity swelling, dyspnea on exertion, orthopnea. Reports never had formally been diagnosed with CHF previously, no previous CHF history, although returns from a trip/bruise, and usually at home per family and his are very cautious about salt and add no salt to their food. He does not normally require nasal cannula oxygen. Vitals/I&O/Wt Last Vital Signs Temp 98.4 F 12/01/21 19:24 Pulse 87 12/01/21 19:24 Resp 18 12/01/21 19:24 BP 174/73 12/01/21 19:24 Pulse Ox 96 12/01/21 19:24 O2 Del Method 12/01/21 19:24 O2 Flow Rate 3 12/01/21 19:24 12/01/21 12/01/21 12/01/21 06:59 14:59 22:59 Intake Total 120 / 420 360 / 360 Output Total 1300 / 1600 550 / 550 Balance -1180 / -1180 -190 / -190 Weight last 48 hrs Weight 73.89 kg Weight 104.326 kg Physical Exam Const: COMMON NORMALS: patient oriented x3 and alert GENERAL APPEARANCE: cooperative ORIENTATION/CONSCIOUSNESS: Yes awake HENMT: COMMON NORMALS: oropharynx normal Neck/C-Spine: COMMON NORMALS: no JVD Resp: COMMON NORMALS: normal respiratory effort AUSCULTATION: wheezes (few) Cardio: COMMON NORMALS: no JVD, regular rhythm, S1 normal heart sound present, S2 normal heart sound present and No murmurs present (Cardio) RHYTHM: regular rhythm HEART SOUNDS: S1 normal heart sound present and S2 normal heart sound present GI: COMMON NORMALS: Normal to inspection, nondistended, normoactive bowel sounds present, Soft to palpation and non-tender PALPATION: Yes Soft to palpation Extremity: COMMON NORMALS: no joint enlargement GENERAL: Yes edema (1+ BL LE) Neuro: COMMON NORMALS: patient oriented x3 and moves all extremities SENSORIUM/ORIENTATION: Yes alert Skin: COMMON NORMALS: no rashes or lesions noted GENERAL SKIN EXAM: no rashes or lesions noted Data : 12/01/21 01:18 12/01/21 01:18 Micro: Microbiology 11/30/21 19:32 Blood Culture - Preliminary Blood NEGATIVE TO DATE 11/30/21 19:29 Blood Culture - Preliminary Blood NEGATIVE TO DATE 11/30/21 22:40 Bacterial Antigens - Final Urine,Clean Catch A&P Assessment and plan (1) Pneumonia: Discussed finding of enteral rhinovirus infection, bilateral lower lobe pneumonia. Viral pneumonia, possible superimposed bacterial pneumonia. Continue empiric antibiotics for now. Droplet, contact isolation. Continue oxygen support. Wean down as tolerating. (2) Acute respiratory failure with hypoxemia: Not normally on oxygen. Continues to require 3 L nasal cannula. Continue support, wean down as tolerating. Continue for pneumonia as above with possible superimposed bacterial infection, supportive treatment for viral infection. Continue diuresis for acute congestive heart failure, suspect secondary to fluid overload after recent trip/cruise. TTE has been requested, returning with borderline low ejection fraction 51%, grade 1 diastolic dysfunction, noted mild diffuse hypokinesia of inferior lateral wall. Moderate aortic valve regurgitat ion. Mild MVR. Wall motional abnormality appears new. Denies past cardiac history, no history of MT, denies ever having a stress test. He is chest pain-free, mild elevation of troponin noted but in the setting of CKD, T wave abnormality noted. Currently lower likelihood of acute MT, however, as discussed with him and family would benefit from additional assessment with stress testing given a c ardiac risk factors and new echocardiographic findings, CHF. Continue IV diuretic for now. Monitor VIPIN. Reassess renal function. (3) CHF (congestive heart failure): As above. (4) Hypertension: (5) Gout: (6) Chronic kidney disease, stage III (moderate): (7) Edema: TSH low at 0.03. Check free T4. Plan Hypothyroidism: Continue levothyroxine. Hypertension, continue metoprolol History of FSGS on cyclosporine, history of chronic prednisone use History of gout Attestations Medical Necessity Statement*: Continue assessment and management of acute hypoxic failure, pneumonia and gentleman with immunosuppression, acute CHF and gentleman with CKD. Coding Level of Care Code Acute Central Office Equipment Engineer for [facility] [facility] Diagnoses Pneumonia J18.9 Acute respiratory failure with hypoxemia J96.01 CHF (congestive heart failure) I50.9 Hypertension I10 Gout M10.9 Chronic kidney disease, stage III (moderate) N18.3 Edema R60.9
[2021-12-01] MEDS: tamsulosin 0.4 mg Capsule PO (21:10)
[2021-12-01] MEDS: cefTRIAXone 1,000 MG in sodium chloride 0.9% (plus) 50 ML 100 MG IV (21:10)
[2021-12-01 21:50] LABS: Free T4 Free Thyroxine 1.21 ng/dL (0.82-1.77)
[2021-12-01] MEDS: azithromycin 500 MG in sodium chloride 0.9% 250 ML 250 MG IV (22:00)
[2021-12-02 04:00] VITALS: BP 144/63; PULSE 77; RESP 16; TEMP 36.7; O2SAT 97
[2021-12-02 05:17] LABS: Basophils # 0.1 10^3/uL (0.0-0.1); Basophils % 0.8 %; Eosinophils # 0.2 10^3/uL (0.0-0.8); Eosinophils % 2.6 %; Mean Corpuscular HGB Conc 30.6 g/dL (30.0-36.0); Mean Corpuscular Hemoglobin 28.9 pg (28.0-34.0); Mean Corpuscular Volume 94.5 fl (80-94); Mean Platelet Volume 12.1 fL (7.4-10.4); Monocytes # 0.6 10^3/uL (0.2-0.9); Monocytes % 7.3 %; Neutrophils # 5.75 10^3/uL (1.8-7.7); Neutrophils % 65.8 %; Nucleated Red Blood Cells % 0 %; Platelet Count 232 10^3/cmm (130-400); Red Blood Count 3.81 10^6/uL (4.1-5.3); Red Cell Distribution Width 13.2 % (12.1-15.1); White Blood Count 8.7 10^3/uL (4.0-10.0)
[2021-12-02 05:45] LABS: Alanine Aminotransferase 6 U/L (0-41); Albumin Level 2.7 g/dL (3.5-5.2); Alkaline Phosphatase 59 U/L (40-130); Aspartate Amino Transferase 9 U/L (0-40); Blood Urea Nitrogen 22 mg/dL (8-23); Carbon Dioxide 28 mmol/L (22-29); Chloride 106 mmol/L (98-107); Globulin 2.7 g/dL (1.3-4.6); Glucose 91 mg/dL (65-115); Osmolality Calculated 297 mOsm/kg (285-295); Sodium 142 mmol/L (136-145); Total Bilirubin 0.5 mg/dL (0.15-1.2); Total Protein 5.4 g/dL (6.6-8.7)
[2021-12-02 06:00] VITALS: PULSE 72
[2021-12-02 08:00] VITALS: BP 150/57; PULSE 77; RESP 16; TEMP 37.2; O2SAT 91
[2021-12-02] MEDS: metoprolol tartrate 50 mg Tablet 100 MG PO (08:12)
[2021-12-02] MEDS: heparin 5,000 unit/mL INJ 1 mL 5000 UNIT SUBCUT (08:13)
[2021-12-02] MEDS: allopurinol 300 mg Tablet 150 MG PO (08:13)
[2021-12-02] MEDS: levothyroxine 175 mcg Tablet PO (08:13)
[2021-12-02] MEDS: FUROsemide 10 mg/mL SDV 4mL 40 MG IVP (08:13)
[2021-12-02] MEDS: aspirin 81 mg Chew Tablet PO (08:13)
[2021-12-02 08:14] VITALS: PULSE 69; RESP 16; O2SAT 94
[2021-12-02 10:53] VITALS: O2SAT 92; O2SAT 94
[2021-12-02 11:04] VITALS: PULSE 69; RESP 16; O2SAT 94
--- NOTE | 2021-12-02 11:07 | PC.NURSE ---
Discharge Note Patient discharged to home via private vehicle accompanied by . Discharge instructions reviewed with patient and/or veterans service representative. Mobile pharmacy medications and/or prescriptions provided. Belongings/home medications returned.
--- NOTE | 2021-12-02 12:37 | PM.DCS ---
Discharge Providers Date of Admission: 11/30/21 20:10 Date of Discharge: December 02, 2021 Attending Provider at Admission: Lucien Bush MD Attending Provider at Discharge: Kendall Tay Primary Care Provider: Kaleb Daniel MD Diagnoses at Discharge Discharge Diagnosis (1) Pneumonia: Status: Acute (2) Acute respiratory failure with hypoxemia: Status: Acute (3) CHF (congestive heart failure): Status: Acute (4) Hypertension: Status: Acute (5) Gout: Status: Acute (6) Chronic kidney disease, stage III (moderate): Status: Acute (7) Edema: Status: Acute Reason for Visit Reason for Visit: DIFF BREATHING Hospital Course Hospital Course Pleasant 71-year-old gentleman with history of FSGS and CKD on cyclosporine, history of chronic prednisone use, gout, HTN, hypothyroidism, HLD was admitted due to progressive respiratory symptoms with cough, fevers, shortness of breath, dyspnea on exertion, lower extremity edema, with hypoxic respiratory failure on presentation, pulse ox down as low as 85%, newly requiring requiring newly nasal cannula oxygen supplementation. Presentation with noted bilateral lower lobe pneumonia, tested positive for enterorhinovirus on viral panel. Treated with ceftriaxone and azithromycin for superimposed bacterial pneumonia. Also received IV diuresis due to symptoms with acute diastolic CHF with lower extremity with, dyspnea exertion, orthopnea. Had no chest pain or pressure. Mild troponin abnormality not suggestive of acute PR currently, her, with noted regional motion abnormality on TTE, otherwise normal ejection fraction, and chronic known valvular abnormalities. With treatment his symptoms improved significantly, he weaned down on oxygen and down to room air. He is feeling much better. Remains chest pain-free. Discussed with him abnormalities on echocardiogram, risk factors for coronary disease, and he is agreeable to follow-up with stress test following continued recovery from his acute condition. Physical Exam Const: COMMON NORMALS: patient oriented x3 and alert GENERAL APPEARANCE: cooperative ORIENTATION/CONSCIOUSNESS: Yes awake HENMT: COMMON NORMALS: oropharynx normal Neck/C-Spine: COMMON NORMALS: no JVD Resp: COMMON NORMALS: normal respiratory effort and clear to auscultation bilaterally AUSCULTATION: clear to auscultation bilaterally Cardio: COMMON NORMALS: no JVD, regular rhythm, S1 normal heart sound present, S2 normal heart sound present and No murmurs present (Cardio) RHYTHM: regular rhythm HEART SOUNDS: S1 normal heart sound present and S2 normal heart sound present GI: COMMON NORMALS: Normal to inspection, nondistended, normoactive bowel sounds present, Soft to palpation and non-tender PALPATION: Yes Soft to palpation Extremity: COMMON NORMALS: no joint enlargement and no pedal edema Neuro: COMMON NORMALS: patient oriented x3 and moves all extremities SENSORIUM/ORIENTATION: Yes alert Skin: COMMON NORMALS: no rashes or lesions noted GENERAL SKIN EXAM: no rashes or lesions noted Discharge Data Studies Completed and Pending Completed Studies During Hospitalization Category Date Time Status XR chest 1V portable [id number] Stat Exams 11/30/21 19:03 Completed CV. echo complete* [id number] Routine Ultrasound 11/30/21 21:24 Completed Pending at discharge Category Date Time Status Blood Culture Stat Lab 11/30/21 19:32 Results Radiology Impressions Chest X-Ray 11/30/21 19:03 IMPRESSION: 1. Interval development of bilateral lower lobe patchy atelectasis versus pneumonia, worse on the right. Recommend clinical correlation. Recommend followup chest imaging to insure resolution of these findings. 2. Incidental/nonacute findings are listed in the report. Laboratory Results WBC 8.7 10^3/uL (4.0-10.0) 12/02/21 04:33 RBC 3.81 10^6/uL (4.1-5.3) L 12/02/21 04:33 Hgb 11.0 g/dL (11.7-16.6) L 12/02/21 04:33 Hct 36.0 % (42.0-52.0) L 12/02/21 04:33 MCV 94.5 fl (80-94) H 12/02/21 04:33 MCH 28.9 pg (28.0-34.0) 12/02/21 04:33 MCHC 30.6 g/dL (30.0-36.0) 12/02/21 04:33 RDW 13.2 % (12.1-15.1) 12/02/21 04:33 Plt Count 232 10^3/cmm (130-400) 12/02/21 04:33 MPV 12.1 fL (7.4-10.4) H 12/02/21 04:33 Neut % (Auto) 65.8 % 12/02/21 04:33 Lymph % (Auto) 23.0 % 12/02/21 04:33 [place] % (Auto) 7.3 % 12/02/21 04:33 Eos % (Auto) 2.6 % 12/02/21 04:33 Baso % (Auto) 0.8 % 12/02/21 04:33 Neut # (Auto) 5.75 10^3/uL (1.8-7.7) 12/02/21 04:33 Lymph # (Auto) 2.0 10^3/uL (0.8-4.8) 12/02/21 04:33 [place] # (Auto) 0.6 10^3/uL (0.2-0.9) 12/02/21 04:33 Eos # (Auto) 0.2 10^3/uL (0.0-0.8) 12/02/21 04:33 Baso # (Auto) 0.1 10^3/uL (0.0-0.1) 12/02/21 04:33 Nucleated RBC % (auto) 0 % 12/02/21 04:33 Nucleated RBCs # 0.0 /100WBC 12/02/21 04:33 PT 13.20 SECONDS (12.1-14.9) 11/30/21 19:04 INR 0.97 (0.8-1.2) 11/30/21 19:04 Sodium 142 mmol/L (136-145) 12/02/21 04:33 Potassium 4.0 mmol/L (3.5-5.1) 12/02/21 04:33 Chloride 106 mmol/L (98-107) 12/02/21 04:33 Carbon Dioxide 28 mmol/L (22-29) 12/02/21 04:33 Anion Gap 12.0 (5-19) 12/02/21 04:33 BUN 22 mg/dL (8-23) 12/02/21 04:33 Creatinine 1.6 mg/dL (0.7-1.2) H 12/02/21 04:33 GFR Calculation Not Reportable 12/02/21 04:33 Glucose 91 mg/dL (65-115) 12/02/21 04:33 Calculated Osmolality 297 mOsm/kg (285-295) H 12/02/21 04:33 Lactic Acid 1.0 mmol/L (0.5-2.2) 11/30/21 19:29 Calcium 9.0 mg/dL (8.5-10.5) 12/02/21 04:33 Total Bilirubin 0.5 mg/dL (0.15-1.2) 12/02/21 04:33 AST 9 U/L (0-40) 12/02/21 04:33 ALT 6 U/L (0-41) 12/02/21 04:33 Alkaline Phosphatase 59 U/L (40-130) 12/02/21 04:33 Troponin T Baseline 55 ng/L (0-15) H 11/30/21 19:04 Troponin T 120 Minute 52.95 ng/L (0-15) H 11/30/21 21:21 Delta Troponin T -2.05 ABS# (0-10) L 11/30/21 21:21 Troponin T Hi Sens 6Hr 49.21 ng/L (0-15) H 12/01/21 01:18 Troponin T Hi Sens 6Hr Delta -5.79 ng/L (0-12) L 12/01/21 01:18 C-Reactive Protein 42.7 mg/L (0.0-4.9) H 11/30/21 21:21 NT-Pro-B Natriuret Pep 87298 pg/mL (0-125) H 12/01/21 01:18 NT-Pro-B Natriuret Pep Cancelled 12/01/21 01:18 Total Protein 5.4 g/dL (6.6-8.7) L 12/02/21 04:33 Albumin 2.7 g/dL (3.5-5.2) L 12/02/21 04:33 Globulin 2.7 g/dL (1.3-4.6) 12/02/21 04:33 Procalcitonin 0.07 ng/mL (0-0.5) 11/30/21 21:21 TSH 0.03 uIU/mL (0.27-4.20) L 11/30/21 21:21 Free T4 1.21 ng/dL (0.82-1.77) 12/01/21 01:18 Nasal Influ A H1 2008 PCR Not detected (NOT DETECT) 11/30/21 23:35 Adenovirus (PCR) Not detected (NOT DETECT) 11/30/21 23:35 C. pneumoniae DNA (PCR) Not detected (NOT DETECT) 11/30/21 23:35 Coronavirus 229E (PCR) Not detected (NOT DETECT) 11/30/21 23:35 Human Metapneumovir PCR Not detected (NOT DETECT) 11/30/21 23:35 Influenza A (H1) PCR Not detected (NOT DETECT) 11/30/21 23:35 Influenza A (H3) PCR Not detected (NOT DETECT) 11/30/21 23:35 Influenza Type A Ag Negative (Negative) 11/30/21 22:30 Influenza Type A (PCR) Not detected (NOT DETECT) 11/30/21 23:35 Influenza Type B Ag Negative (Negative) 11/30/21 22:30 Influenza Type B (PCR) Not detected (NOT DETECT) 11/30/21 23:35 M. pneumoniae (PCR) Not detected (NOT DETECT) 11/30/21 23:35 Parainfluenza 1 (PCR) Not detected (NOT DETECT) 11/30/21 23:35 Parainfluenza 2 (PCR) Not detected (NOT DETECT) 11/30/21 23:35 Parainfluenza 3 (PCR) Not detected (NOT DETECT) 11/30/21 23:35 Parainfluenza 4 (PCR) Not detected (NOT DETECT) 11/30/21 23:35 RSV Type A (PCR) Not detected (NOT DETECT) 11/30/21 23:35 RSV Type B (PCR) Not detected (NOT DETECT) 11/30/21 23:35 Entero/Rhino (PCR) Detected (NOT DETECT) A 11/30/21 23:35 SARS-CoV-2 (PCR) Not detected (NOT DETECT) 11/30/21 23:35 SARS-CoV-2 Ag (Rapid) Negative (Negative) 11/30/21 19:04 Vitals Last Vital Signs Temp 98.9 F 12/02/21 08:00 Pulse 69 12/02/21 11:04 Resp 16 12/02/21 11:04 BP 150/57 12/02/21 08:00 Pulse Ox 94 12/02/21 11:04 O2 Del Method 12/02/21 08:14 O2 Flow Rate 2 12/01/21 20:00 Discharge Plan Discharge Patient Disposition: Home Condition: Stable Prescriptions: New benzonatate 100 mg Capsule 100 mg PO TID PRN (Reason: Cough) Qty: 30 0RF cefdinir 300 mg capsule 300 mg PO BID 5 Days Qty: 10 0RF azithromycin 250 mg tablet 250 mg PO DAILY 5 Days Qty: 5 0RF Rx Instructions: start on day 2 of therapy Continued allopurinol 300 mg tablet 300 mg PO QPM furosemide 80 mg tablet 80 mg PO QAM metoprolol tartrate 100 mg tablet 100 mg PO BID cyclosporine 100 mg capsule 100 mg PO BID Qty: 60 11RF cyclosporine 25 mg capsule 25 mg PO BID Qty: 60 11RF Rx Instructions: take this with the 100mg tamsulosin 0.4 mg Capsule 0.4 mg PO QPM levothyroxine 175 mcg Tablet 175 mcg PO DAILY@04 chlorthalidone 25 mg Tablet 25 mg PO DAILY aspirin 81 mg Tablet,Chewable 81 mg PO QPM potassium chloride 8 mEq Capsule, Extended Release 24 meq PO QAM amlodipine 10 mg Tablet 10 mg PO QAM losartan 100 mg Tablet 50 mg PO BID Discharge Orders: Discharge Order (Routine); Ordered 12/02/21 Ordered By: Kendall Tay Other Ambulatory Orders: Sestamibi Stress Test Request (Routine) Timeframe: 10 Day Facility: [facility] - Location: Cardiac Diagnostic Laboratory Ordered By: Kendall Tay Referrals: Kaleb Daniel MD [Primary Care Provider] - 12/09/21 8:50 am Discharge Diet: Cardiac Discharge Activity: Increase activity as tolerated Patient Instructions: Furosemide (By mouth), Azithromycin (By mouth), Cefdinir (By mouth), Heart Failure (GEN), Viral Pneumonia (GEN), Chronic Kidney Disease (GEN), Bacterial Pneumonia (GEN), Opioid Safety Activity Restrictions/Additional Instructions: APPOINTMENT FOR STRESS TEST [facility] WILL CALL WITH APPOINTMENT Discharge Attestations Time Spent in Discharge Care*: greater than 30 min Quality Metrics Clinical Quality Measures [ No reported AMI, CVA or VTE this stay] Coding Level of Care Code Acute g [facility] note Diagnoses Pneumonia J18.9 Acute respiratory failure with hypoxemia J96.01 CHF (congestive heart failure) I50.9 Hypertension I10 Gout M10.9 Chronic kidney disease, stage III (moderate) N18.3 Edema R60.9
== END 2021-12-02 11:05 | disposition home or self-care (01) | DRG 193 ==
LOC: ER 20:14 → MEDSURG 20:22
PROVIDERS: Admitting Provider Family Medicine; Emergency Provider Emergency Medicine; PCP Family Medicine; Visit Provider Internal Medicine
DX: J12.89 Other viral pneumonia (principal); I50.33 Acute on chronic diastolic (congestive) heart failure; J96.01 Acute respiratory failure with hypoxia; I13.0 Hypertensive heart and chronic kidney disease with heart failure and stage 1 through stage 4 chronic kidney disease, or unspecified chronic kidney disease; J18.9 Pneumonia, unspecified organism; N18.30 Chronic kidney disease, stage 3 unspecified; B97.19 Other enterovirus as the cause of diseases classified elsewhere; E03.9 Hypothyroidism, unspecified; E78.5 Hyperlipidemia, unspecified; M10.9 Gout, unspecified; R77.8 Other specified abnormalities of plasma proteins; Z79.52 Long term (current) use of systemic steroids
CPT/HCPCS: 36415; 71045; 80048; 80053; 83605; 83880; 84145; 84439; 84443; 84484; 85025; 85610; 86140; 86403; 87040; 87426; 87486; 87581; 87633; 87804; 93005; 93306; 94664; 94760; 96365; 96367; 96372; 96375; 99285; J0456; J0696; J1644; J1940; J2405; J7050

== ENCOUNTER 2021-12-08 08:26 | Outpatient (CLI) | payer MEDICARE, SELFPAY ==
[2021-12-08 10:21] LABS: Basophils # 0.1 10^3/uL (0.0-0.1); Basophils % 1.1 %; Eosinophils # 0.2 10^3/uL (0.0-0.8); Eosinophils % 1.8 %; Hematocrit 37.9 % (42.0-52.0); Hemoglobin 12.1 g/dL (11.7-16.6); Lymphocytes # 3.1 10^3/uL (0.8-4.8); Lymphocytes % 30.5 %; Mean Corpuscular HGB Conc 31.9 g/dL (30.0-36.0); Mean Corpuscular Hemoglobin 29.4 pg (28.0-34.0); Mean Platelet Volume 11.9 fL (7.4-10.4); Monocytes # 0.5 10^3/uL (0.2-0.9); Monocytes % 5.3 %; Neutrophils % 60.4 %; Nucleated Red Blood Cells % 0 %; Platelet Count 362 10^3/cmm (130-400); Red Blood Count 4.12 10^6/uL (4.1-5.3); Red Cell Distribution Width 13.2 % (12.1-15.1); White Blood Count 10.2 10^3/uL (4.0-10.0)
[2021-12-08 10:41] LABS: Creatinine Urine, Random 177 mg/dL (39-259)
[2021-12-08 10:44] LABS: Albumin Level 3.3 g/dL (3.5-5.2); Blood Urea Nitrogen 24 mg/dL (8-23); Calcium 9.5 mg/dL (8.5-10.5); Carbon Dioxide 27 mmol/L (22-29); Chloride 105 mmol/L (98-107); Glucose 113 mg/dL (65-115); Phosphorus 3.7 mg/dL (2.5-4.5); Sodium 142 mmol/L (136-145)
[2021-12-08 10:45] LABS: Anion Gap 13.9 (5-19); Potassium 3.9 mmol/L (3.5-5.1)
[2021-12-08 11:25] LABS: Microalbum Creatinine Ratio Ur 2384 mg/dL (0-20); Microalbumin Random Urine 422 ug/dL (0-20)
[2021-12-09 12:17] LABS: Cyclosporine A Trough Level 222 mcg/L
== END 2021-12-08 08:27 | disposition home or self-care (01) ==
LOC: LAB 08:47
PROVIDERS: PCP Family Medicine; Visit Provider Internal Medicine Nephrology
DX: N18.31 Chronic kidney disease, stage 3a (principal)
CPT/HCPCS: 80069; 80158; 82044; 85025

== ENCOUNTER 2021-12-22 09:51 | Outpatient (CLI) | payer MEDICARE, SELFPAY ==
[2021-12-22 10:14] VITALS: BMI 34.0
--- NOTE | 2021-12-22 10:26 | ECG_ITS ---
[facility] Test Date: 2021-12-22 Pat Name: Emanuel Mcneal Department: Room: Gender: Male Driver Trainee: : 1950 Requested By: Kendall Tay Order Number: [id number] Yosvany MD: Guillermina Vigil M.D. Interpretive Statements NAME OF STUDY: LEXISCAN SESTAMIBI STRESS TEST INDICATION: Congestive heart failure PROCEDURE: At the baseline, the blood pressure was 149/75 mmHg with a heart rate of 71 beats per min. The electrocardiogram showed [sinus rhythm, normal axis. T wave inversion noted in lead III, aVF and V4 to V6. The Lexiscan was infused over a period of 20 seconds. A total of 0.4 milligrams of Lexiscan was infused. The stress phase was continued for a total of 5 minutes. Heart rate at the end of the stress phase was 76 bpm with a blood pressure of 118/79 mmHg. The EKG at the peak infusion revealed sinus rhythm with no significant ST-T wave changes. Isolated PVCs noted during Lexiscan infusion. The study was terminated due to protocol completion. Sestamibi was injected 20 seconds after the Lexiscan infusion. Blood pressure at the end of the recovery phase was 164/69 mmHg with a heart rate of 75 beats per minute. Frequent isolated PVCs noted in recovery. CONCLUSION: 1. No significant EKG changes with the LexiScan infusion. 2. No LexiScan induced chest pain or cardiac arrhythmia. 3. Normal blood pressure and heart rate response. 4. Sestamibi/sestamibi perfusion scan pending; see separate report. Electronically Signed On 12-22-2021 13:29:08 CDT by Guillermina Vigil M.D. [id number]
--- NOTE | 2021-12-22 10:26 | NMCV_ITS ---
NM bee perf SPECT r/s* [id number] Emanuel Mcneal Age: 71 Gender: M : 1950 Exam Date: 12/22/2021 11:17 Ordering Phys: Kendall Tay MD Technologist: AJ Hernandez Exam Location: [facility] Indications: HEART FAILURE STRESS TEST Please see separate stress test report in [facility] for full findings IMAGE PROTOCOL Rest/Stress 1 Lexiscan Day Radiopharmaceutical Dose (mCi) Administration Site Administered by Rest: Tc-99m 10.7 IV AJ Hernandze Sestamibi Stress:Tc-99m 33.0 IV AJ Dale Sestamibi Rest: 22-Dec-2021 60 Discovery 630 Stress: 22-Dec-2021 30 Discovery 630 0.4mg Lexiscan. Images obtained in supine and prone position. SPECT RESULTS Technical Quality: Excellent Raw Data Analysis: Normal Image Corrections: No attenuation or motion correction applied Summed Stress Score: 14 Summed Rest Score: 11 Summed Difference Score: 3 PERFUSION FINDINGS Medium sized perfusion abnormality of moderate to severe severity of basal to apical inferior, mid inferolateral and apical lateral wall on rest images with mild reversibility in basal inferior, mid anterolateral and mid anterior smith on stress images. FUNCTIONAL RESULTS (calculated via Gated SPECT) Stress Image LV EF (%): 37 Stress EDV (mL):253 TID: 0.98 Stress ESV (mL):160 FUNCTIONAL FINDINGS: The left ventricle is normal in size. Transient Ischemia Dilatation of 0.98. The left ventricular ejection fraction is moderately reduced with a value of 37%. Markedly increased end-diastolic and end-systolic volumes. There is moderate hypokinesis of inferior wall. IMPRESSIONS 1. Medium sized perfusion abnormality of moderate to severe severity of basal to apical inferior, mid inferolateral and apical lateral wall with mild reversibility in basal inferior, mid anterolateral and mid anterior smith. 2. This is suggestive of old myocardial infarction in right coronary artery/ circumflex artery territory with mild jaylon-infarct ischemia. 3. The left ventricular ejection fraction is moderately reduced with a value of 37%. 4. There is moderate hypokinesis of inferior wall. 5. No EKG changes with Lexiscan infusion. Refer to separate report for details. Guillermina Vigil MD (Electronically Signed) Final Date: 22 December 2021 13:40 S
[2021-12-22] MEDS: regadenoson 0.4 Mg/5 ml Syringe IVP (11:45)
[2021-12-22 11:59] VITALS: BP 164/69; PULSE 75
== END 2021-12-22 09:52 | disposition home or self-care (01) ==
LOC: CDL 09:53
PROVIDERS: PCP Family Medicine; Visit Provider Internal Medicine
DX: I50.9 Heart failure, unspecified (principal); R93.1 Abnormal findings on diagnostic imaging of heart and coronary circulation
CPT/HCPCS: 78452; 93017; A9500; J2785

== ENCOUNTER → 2021-12-23 09:13 | Outpatient (BNVA) | payer MEDICARE, SELFPAY | PROVIDERS: PCP Family Medicine; Visit Provider Family Medicine | DX: I13.0 Hypertensive heart and chronic kidney disease with heart failure and stage 1 through stage 4 chronic kidney disease, or unspecified chronic kidney disease (principal); I50.9 Heart failure, unspecified; N18.30 Chronic kidney disease, stage 3 unspecified | CPT/HCPCS: 80053; 83880 ==

== ENCOUNTER → 2022-01-07 10:38 | Outpatient (BNVA) | payer MEDICARE, SELFPAY | PROVIDERS: PCP Family Medicine; Visit Provider Family Medicine | DX: I11.0 Hypertensive heart disease with heart failure (principal); I50.9 Heart failure, unspecified | CPT/HCPCS: 80048 ==

== ENCOUNTER → 2022-04-09 09:22 | Outpatient (BNVA) | payer MEDICARE, SELFPAY | PROVIDERS: PCP Family Medicine; Visit Provider Family Medicine | DX: I12.9 Hypertensive chronic kidney disease with stage 1 through stage 4 chronic kidney disease, or unspecified chronic kidney disease (principal); I50.9 Heart failure, unspecified; N18.30 Chronic kidney disease, stage 3 unspecified; R31.9 Hematuria, unspecified | CPT/HCPCS: 80048; 81000; 83880 ==

== ENCOUNTER 2022-04-17 13:03 | Outpatient (CLI) | payer MEDICARE, SELFPAY ==
[2022-04-17 14:07] LABS: Blood Urea Nitrogen 39 mg/dL (8-23); Calcium 8.7 mg/dL (8.5-10.5); Carbon Dioxide 29 mmol/L (22-29); Chloride 102 mmol/L (98-107); Glucose 136 mg/dL (65-115); Osmolality Calculated 305 mOsm/kg (285-295); Sodium 142 mmol/L (136-145)
[2022-04-17 14:08] LABS: Anion Gap 15.2 (5-19); Potassium 4.2 mmol/L (3.5-5.1)
[2022-04-17 14:14] LABS: Creatinine Urine, Random 68 mg/dL (39-259); Urine Creatinine 65 mg/dL (39-259)
[2022-04-17 14:15] LABS: UPRO/UCREAT Ratio 2.51 mg/mg CR; Urine Protein Random 163 mg/dL
[2022-04-17 14:28] LABS: Microalbum Creatinine Ratio Ur 1618 mg/dL (0-20); Microalbumin Random Urine 110 ug/dL (0-20)
[2022-04-20 14:40] LABS: Cyclosporine A Trough Level 286 mcg/L
== END 2022-04-17 13:04 | disposition home or self-care (01) ==
LOC: LAB 13:07
PROVIDERS: Registered Nurse; PCP Family Medicine; Visit Provider Family Medicine
DX: Z01.89 Encounter for other specified special examinations (principal)
CPT/HCPCS: 36415; 80048; 80158; 82044; 82570; 84156

== ENCOUNTER 2022-05-15 02:29 | Emergency (ER) | payer MEDICARE, SELFPAY ==
[2022-05-15 02:32] VITALS: BP 207/78; PULSE 81; RESP 22; TEMP 36.2; O2SAT 96; BMI 31.9
--- NOTE | 2022-05-15 02:45 | ED_ITS ---
HPI - Male Genitourinary General: Chief complaint: Urogenital-Male Stated complaint: cath removal needed Time Seen by Provider: 05/15/22 02:41 Source: patient Mode of arrival: ambulatory Limitations: no limitations History of Present Illness: 71-year-old male states that he was on a cruise ship he had some hematuria and they had placed a Cosme 3 days ago there placed him on antibiotics he states he had no urinary retention he states that he wants the Cosme catheter removed he has had no blood output in the bag he denies any fever denies any abdominal pain. Associated symptoms: Reports hematuria; Deny nausea or vomiting Review of Systems Const: Denies: fever(s), chills, body aches or change in appetite Eyes: Denies: blurry vision or eye discomfort ENMT: Denies: throat pain or dental pain Card: Denies: chest pain Resp: Denies: dyspnea GI: Denies: abdominal pain, nausea, vomiting or diarrhea : Reports: hematuria Musc: Denies: neck pain or back pain Skin/Breast: Denies: rash Neuro: Denies: headache(s) Psych: Denies: depression Tylor/Lymph: Denies: easy bruising All/Imm: Denies: urticaria PFSH ED PFSH: Medical History Chronic kidney disease, stage III (moderate) Gout Hypertension Surgical History No pertinent past surgical history Physical Exam Const: COMMON NORMALS: no acute distress and patient oriented x3 HENMT: COMMON NORMALS: normocephalic HEAD & SCALP: normocephalic Eye: COMMON NORMALS: conjunctivae normal CONJUNCTIVA: Yes conjunctivae normal Neck/C-Spine: COMMON NORMALS: supple Chest: COMMONS NORMALS: normal inspection of the chest Resp: COMMON NORMALS: normal respiratory effort Cardio: COMMON NORMALS: regular rate RATE: regular rate GI: INSPECTION: Yes normal to inspection : OTHER: Cosme catheter in place and draining Extremity: COMMON NORMALS: normal to inspection Neuro: COMMON NORMALS: patient oriented x3 Psych: COMMON NORMALS: mental status grossly normal Skin: COMMON NORMALS: no rashes or lesions noted GENERAL SKIN EXAM: no rashes or lesions noted Course Vital Signs: Vital signs: Vital Signs Temperature 97.1 F L 05/15/22 02:32 Pulse Rate 81 05/15/22 02:32 Respiratory Rate 22 H 05/15/22 02:32 Blood Pressure 207/78 05/15/22 02:32 Pulse Oximetry 96 05/15/22 02:32 MDM - Male Medical Decision Making Patient presents here wanting his Cosme catheter removed he states he was on a cruise ship and had some hematuria so they placed a catheter he is currently on antibiotics they placed him on he had no urinary retention he states he is having pain with a catheter and just wants it out did remove it here we will send his urine off for urinalysis culture he is to finish his antibiotics and follow-up with his PCP Discharge Plan Discharge Patient Disposition: Home Clinical Impression: Encounter for Cosme catheter removal Condition: Stable Prescriptions: No Action furosemide 80 mg tablet 80 mg PO QAM metoprolol tartrate 100 mg tablet 100 mg PO BID cyclosporine 100 mg capsule 100 mg PO BID Qty: 60 11RF metolazone 5 mg tablet 5 mg PO .every other day PRN (Reason: edema) Qty: 14 2RF cyclosporine 25 mg capsule 25 mg PO DAILY Rx Instructions: take this with the 100mg allopurinol 300 mg tablet See Rx Instructions .ROUTE .COMPLEX Qty: 30 11RF Dose Instruction: TAKE 1 TABLET BY MOUTH EVERY DAY FOR GOUT Rx Instructions: TAKE 1 TABLET BY MOUTH EVERY DAY FOR GOUT tamsulosin 0.4 mg Capsule 0.4 mg PO QPM levothyroxine 175 mcg Tablet 175 mcg PO DAILY@04 chlorthalidone 25 mg Tablet 25 mg PO DAILY aspirin 81 mg Tablet,Chewable 81 mg PO QPM potassium chloride 8 mEq Capsule, Extended Release 24 meq PO QAM amlodipine 10 mg Tablet 10 mg PO QAM losartan 100 mg Tablet 50 mg PO BID benzonatate 100 mg Capsule 100 mg PO TID PRN (Reason: Cough) Qty: 30 0RF Discharge Orders: Discharge ED (Routine); Ordered 05/15/22 Ordered By: Sara Haas Referrals: Kaleb Daniel MD [Primary Care Provider] - 1-3 days Discharge Diet: Advance as tolerated Discharge Activity: Resume usual activity Patient Instructions: Hematuria (ED) Coding Level of Care Code ED Cooking Appliance Repair Technician for Tania Alcaraz
[2022-05-15 03:03] VITALS: BP 155/53; PULSE 77; RESP 20; O2SAT 96
[2022-05-15 03:36] LABS: Protein Urine 3+ (Negative); Specific Gravity, Urine 1.015 (1.005-1.030); Urine Appearance Cloudy (CLEAR); Urine Color Red (Yellow); pH Urine 5 (5-7)
[2022-05-15 03:37] LABS: Add Urine Microscopic? YES; Bilirubin Urine Neg (Negative); Blood Urine 3+ (Negative); Glucose Urine UA Norm (Normal); Ketones Urine Negative (Negative); Leukocyte Esterase Urine 1+ (Negative); Nitrate Urine Positive (Negative); Urobilinogen Urine Norm (Negative)
[2022-05-15 03:38] LABS: RBC Urine >100 /hpf (0-2)
[2022-05-15 03:40] LABS: Bacteria Urine 2+ /hpf
== END 2022-05-15 03:04 | disposition home or self-care (01) ==
PROVIDERS: Emergency Provider Emergency Medicine; PCP Family Medicine
DX: Z45.2 Encounter for adjustment and management of vascular access device (principal); I12.9 Hypertensive chronic kidney disease with stage 1 through stage 4 chronic kidney disease, or unspecified chronic kidney disease; N18.30 Chronic kidney disease, stage 3 unspecified; Z79.82 Long term (current) use of aspirin; Z79.2 Long term (current) use of antibiotics
CPT/HCPCS: 80048; 81001; 83880; 87086; 99283; J0696

== ENCOUNTER 2022-05-26 17:02 | Emergency (ER) | payer MEDICARE, SELFPAY ==
[2022-05-26 17:07] VITALS: BP 210/115; PULSE 72; RESP 16; TEMP 36.6; O2SAT 95
[2022-05-26 19:22] VITALS: BP 194/77; PULSE 79; O2SAT 97
--- NOTE | 2022-05-26 20:01 | ED_ITS ---
HPI - Male Genitourinary General: Chief complaint: Urogenital-Male Stated complaint: cath issues Time Seen by Provider: 05/26/22 19:49 Source: patient Mode of arrival: ambulatory Limitations: no limitations History of Present Illness: 71-year-old male who had been seen at [place] and had a Moreau catheter placed he is to follow-up with urologist at [facility] as well but states that today he had no output out of his Moreau was having lower abdominal pain that was sharp in nature. He denies any fever denies any worsening proving factors. Associated symptoms: Deny nausea or vomiting Review of Systems Const: Denies: fever(s), chills, body aches or change in appetite Eyes: Denies: blurry vision or eye discomfort ENMT: Denies: throat pain or dental pain Card: Denies: chest pain Resp: Denies: dyspnea GI: Denies: abdominal pain, nausea, vomiting or diarrhea : Reports: difficulty urinating Musc: Denies: neck pain or back pain Skin/Breast: Denies: rash Neuro: Denies: headache(s) Psych: Denies: depression Tylor/Lymph: Denies: easy bruising All/Imm: Denies: urticaria PFSH ED 2 PFSH: Medical History Chronic kidney disease, stage III (moderate) Gout Hypertension Surgical History No pertinent past surgical history Social History (Updated 05/26/22 @ 20:05 by Sara Haas MD) Substance/Drug Use: never Physical Exam Const: COMMON NORMALS: no acute distress and patient oriented x3 HENMT: COMMON NORMALS: normocephalic HEAD & SCALP: normocephalic Eye: COMMON NORMALS: conjunctivae normal CONJUNCTIVA: Yes conjunctivae normal Neck/C-Spine: COMMON NORMALS: supple Chest: COMMONS NORMALS: normal inspection of the chest Resp: COMMON NORMALS: normal respiratory effort Cardio: COMMON NORMALS: regular rate and regular rhythm RATE: regular rate RHYTHM: regular rhythm GI: COMMON NORMALS: Normal to inspection, nondistended, normoactive bowel sounds present, Soft to palpation and non-tender PALPATION: Yes Soft to palpation : OTHER: new moreau in place over 1,000 out Extremity: COMMON NORMALS: normal to inspection Neuro: COMMON NORMALS: patient oriented x3 Psych: COMMON NORMALS: mental status grossly normal Skin: COMMON NORMALS: no rashes or lesions noted GENERAL SKIN EXAM: no rashes or lesions noted Course Vital Signs: Vital signs: Vital Signs Temperature 97.9 F 05/26/22 17:07 Pulse Rate 79 05/26/22 19:22 Respiratory Rate 16 05/26/22 17:07 Blood Pressure 194/77 05/26/22 19:22 Pulse Oximetry 97 05/26/22 19:22 Oxygen Delivery Me thod 05/26/22 19:22 MDM - Male Medical Decision Making Patient presents here with clogged Moreau catheter placed and a Moreau has had 1300 out he feels much improved he is well-appearing here he is follow-up with urologist about home he is to follow-up as scheduled return if worsening. Discharge Plan Discharge Patient Disposition: Home Clinical Impression: Urinary retention, Complication, blocked Moreau catheter Condition: Stable Prescriptions: No Action furosemide 80 mg tablet 80 mg PO QAM metoprolol tartrate 100 mg tablet 100 mg PO BID cyclosporine 100 mg capsule 100 mg PO BID Qty: 60 11RF metolazone 5 mg tablet 5 mg PO .every other day PRN (Reason: edema) Qty: 14 2RF cyclosporine 25 mg capsule 25 mg PO DAILY Rx Instructions: take this with the 100mg potassium chloride 8 mEq capsule, extended release 16 meq PO QAM amoxicillin-pot clavulanate [Augmentin] 500-125 mg tablet 1 tab PO TID Qty: 30 0RF tamsulosin 0.4 mg capsule 0.4 mg PO BID Qty: 60 11RF allopurinol 300 mg tablet See Rx Instructions .ROUTE .COMPLEX Qty: 30 11RF Dose Instruction: TAKE 1 TABLET BY MOUTH EVERY DAY FOR GOUT Rx Instructions: TAKE 1 TABLET BY MOUTH EVERY DAY FOR GOUT levothyroxine 175 mcg Tablet 175 mcg PO DAILY@04 chlorthalidone 25 mg Tablet 25 mg PO DAILY aspirin 81 mg Tablet,Chewable 81 mg PO QPM Hold Instructions: Home Medication placed on hold at Doctor's office amlodipine 10 mg Tablet 10 mg PO QAM losartan 100 mg Tablet 50 mg PO BID Hold Instructions: Home Medication placed on hold at Doctor's office benzonatate 100 mg Capsule 100 mg PO TID PRN (Reason: Cough) Qty: 30 0RF Discharge Orders: Discharge ED (Routine); Ordered 05/26/22 Ordered By: Sara Haas Referrals: Kaleb Daniel MD [Primary Care Provider] - 1-3 days Discharge Diet: Advance as tolerated Discharge Activity: Resume usual activity Patient Instructions: Moreau Catheter Placement and Care (ED) Coding Level of Care Code ED Retail Sales Representative for Tania Alcaraz
[2022-05-26 20:26] VITALS: BP 188/73; PULSE 66; O2SAT 95
[2022-05-26 20:43] LABS: Glucose Urine UA Norm (Normal); Ketones Urine Negative (Negative); Protein Urine 3+ (Negative); Urine Appearance Clear (CLEAR); Urine Color Yellow (Yellow); pH Urine 5 (5-7)
[2022-05-26 20:44] LABS: Add Urine Culture? No; Add Urine Microscopic? YES; Bilirubin Urine Neg (Negative); Blood Urine 2+ (Negative); Leukocyte Esterase Urine Negative (Negative); Nitrate Urine Negative (Negative); RBC Urine 0-4 /hpf (0-2); Urobilinogen Urine Neg (Negative); WBC Urine 0-4 /hpf (0-5)
== END 2022-05-26 20:28 | disposition home or self-care (01) ==
PROVIDERS: Emergency Provider Emergency Medicine; PCP Family Medicine
DX: R33.9 Retention of urine, unspecified (principal); T83.098A Other mechanical complication of other urinary catheter, initial encounter; Y73.8 Miscellaneous gastroenterology and urology devices associated with adverse incidents, not elsewhere classified; Z79.82 Long term (current) use of aspirin; I12.9 Hypertensive chronic kidney disease with stage 1 through stage 4 chronic kidney disease, or unspecified chronic kidney disease; N18.30 Chronic kidney disease, stage 3 unspecified
CPT/HCPCS: 51702; 80048; 81001; 83880; 85025; 99283

== ENCOUNTER → 2022-06-01 14:47 | Outpatient (BNVA) | payer MEDICARE, SELFPAY | PROVIDERS: PCP Family Medicine; Visit Provider Family Medicine | DX: I12.9 Hypertensive chronic kidney disease with stage 1 through stage 4 chronic kidney disease, or unspecified chronic kidney disease (principal); N18.30 Chronic kidney disease, stage 3 unspecified; R60.9 Edema, unspecified; R33.9 Retention of urine, unspecified | CPT/HCPCS: 80053; 83735; 83880; 85025 ==

== ENCOUNTER → 2022-08-05 10:14 | Outpatient (BNVA) | payer MEDICARE, SELFPAY | PROVIDERS: PCP Family Medicine; Visit Provider Family Medicine | DX: I50.9 Heart failure, unspecified (principal) | CPT/HCPCS: 80048; 83880 ==

== ENCOUNTER → 2022-08-19 14:34 | Outpatient (BNVA) | payer MEDICARE, SELFPAY | PROVIDERS: PCP Family Medicine; Visit Provider Family Medicine | DX: R31.9 Hematuria, unspecified (principal); N40.1 Benign prostatic hyperplasia with lower urinary tract symptoms | CPT/HCPCS: 84153 ==

== ENCOUNTER → 2022-09-09 10:38 | Outpatient (BNVA) | payer MEDICARE, SELFPAY | PROVIDERS: PCP Family Medicine; Visit Provider Family Medicine | DX: N18.4 Chronic kidney disease, stage 4 (severe) (principal) | CPT/HCPCS: 80069; 82043; 82306; 82310; 83970; 85025 ==

== ENCOUNTER → 2022-09-14 14:43 | Outpatient (BNVA) | payer MEDICARE, SELFPAY | PROVIDERS: PCP Family Medicine; Visit Provider Family Medicine | DX: D63.1 Anemia in chronic kidney disease (principal); N18.32 Chronic kidney disease, stage 3b | CPT/HCPCS: 80069; 82728; 83540; 85025 ==

== ENCOUNTER 2022-09-22 07:31 | Outpatient (CLI) | payer MEDICARE, SELFPAY ==
--- NOTE | 2022-09-22 07:43 | USR_ITS ---
PROCEDURE INFORMATION: Exam: US Retroperitoneal; Complete; Kidneys and Bladder Exam date and time: 09/22/2022 8:04 AM Age: 71 years old Clinical indication: Condition or disease; Kidney or ureter condition; Chronic kidney disease or failure; Ckd stage 3 (moderate); Additional info: Stage 3b chronic kidney dz TECHNIQUE: Imaging protocol: Real-time ultrasound of the retroperitoneum with image documentation. Complete exam focused on the kidneys and bladder. COMPARISON: US abdomen complete* [id number] 08/11/2016 7:48 AM FINDINGS: Right kidney: The right kidney measures 9.6 x 5.7 x 6.6 cm. Cortical thickness is about 1.4 cm. No solid mass or hydronephrosis. There are 2 simple cysts measuring about 2 cm. One is in the upper pole and 1 in the lower pole. Left kidney: The left kidney measures 10.6 x 5.0 x 5.9 cm. Cortical thickness is 1.6 cm. There is a 3.1 cm simple cyst in the midpole region. No solid mass . Mild left-sided hydronephrosis. The etiology of this finding is uncertain on this exam. Aorta: The abdominal aorta is aneurysmal measuring about 5.6 x 5.7 cm. Urinary bladder: The bladder is unremarkable. Prostate: The prostate is enlarged measuring about 4.6 x 4.5 x 4.1 cm. US/US renal BI* [id number] IMPRESSION: 1. Bilateral renal cysts. 2. Mild left-sided hydronephrosis. 3. Prominent prostate. 4. Abdominal aortic aneurysm.
== END 2022-09-22 07:32 | disposition home or self-care (01) ==
PROVIDERS: PCP Family Medicine; Visit Provider Internal Medicine Nephrology
DX: N18.32 Chronic kidney disease, stage 3b (principal); N28.1 Cyst of kidney, acquired
CPT/HCPCS: 76770

== ENCOUNTER → 2022-10-06 15:14 | Outpatient (BNVA) | payer MEDICARE, SELFPAY | PROVIDERS: PCP Family Medicine; Visit Provider Family Medicine | DX: I50.9 Heart failure, unspecified (principal); I10 Essential (primary) hypertension; N18.30 Chronic kidney disease, stage 3 unspecified | CPT/HCPCS: 80048; 83880 ==

== ENCOUNTER → 2022-10-19 12:44 | Outpatient (BNVA) | payer MEDICARE, SELFPAY | PROVIDERS: PCP Family Medicine; Visit Provider Internal Medicine Cardiovascular Disease | DX: I13.0 Hypertensive heart and chronic kidney disease with heart failure and stage 1 through stage 4 chronic kidney disease, or unspecified chronic kidney disease (principal); I50.9 Heart failure, unspecified; N18.30 Chronic kidney disease, stage 3 unspecified; I71.40 Abdominal aortic aneurysm, without rupture, unspecified; R41.3 Other amnesia; I49.3 Ventricular premature depolarization; I35.2 Nonrheumatic aortic (valve) stenosis with insufficiency; C67.9 Malignant neoplasm of bladder, unspecified; E78.5 Hyperlipidemia, unspecified; G47.30 Sleep apnea, unspecified | CPT/HCPCS: 99205 ==

== ENCOUNTER → 2022-11-10 11:55 | Outpatient (BNVA) | payer MEDICARE, SELFPAY | PROVIDERS: PCP Family Medicine; Visit Provider Family Medicine | DX: I50.9 Heart failure, unspecified (principal); I10 Essential (primary) hypertension; N18.30 Chronic kidney disease, stage 3 unspecified | CPT/HCPCS: 80053; 83880; 85025 ==

== ENCOUNTER 2022-11-12 11:00 | Emergency (ER) | payer MEDICARE, SELFPAY ==
[2022-11-12 11:03] VITALS: BP 167/74; PULSE 85; RESP 16; TEMP 36.9; O2SAT 95; BMI 33.4
--- NOTE | 2022-11-12 11:11 | ECG_ITS ---
[facility] Test Date: 2022-11-12 Pat Name: Emanuel Mcneal Department: Room: Gender: Male Database Consultant: : 1950 Requested By: Paxton Ryder Order Number: [id number] Yosvany MD: Danuta Welch M.D. Measurements Intervals [place] Rate: 89 P: 37 MT: 158 QRS: 9 QRSD: 113 T: 70 QT: 412 QTc: 504 Interpretive Statements SINUS RHYTHM WITH OCCASIONAL VENTRICULAR PREMATURE COMPLEXES LEFT VENTRICULAR HYPERTROPHY AND ST-T CHANGE [VOLTAGE CRITERIA PLUS ST/T ABNORMALITY] Compared to ECG 12/01/2021 02:30:22 Left ventricular hypertrophy now present ST (T wave) deviation now present T-wave abnormality no longer present Possible ischemia no longer present Electronically Signed On 11-12-2022 21:22:52 CDT by Danuta Welch M.D. [id number]
[2022-11-12 12:33] VITALS: BP 169/73; PULSE 89; RESP 15; TEMP 36.5; O2SAT 95
--- NOTE | 2022-11-12 14:03 | ED_ITS ---
HPI - General Adult General: Chief complaint: General Medical Stated complaint: high hr Time Seen by Provider: 11/12/22 14:01 Source: patient Mode of arrival: ambulatory History of Present Illness: 72-year-old male presents emergency room complaining of rapid heart rate at home. He said his heart rate has been fluctuating. He is on metoprolol tartrate 100 mg twice a day he does admit to having taken a little later today when he arrives here his heart rate EKG are normal ranges although his blood pressure is significantly elevated on the first check. He is not having any chest pain he has some back pain on the right side but he states that is chronic. He has no known history of heart disease is not on any anticoagulants he has no history of PE or DVT no known history of arrhythmias. No headaches no difficulty with vision speech swallowing no ataxia's. Onset (ago): hour(s) Severity: moderate Relieving factors: none Exacerbating factors: none Associated symptoms: Reports palpitations; Deny chest pain, confusion, cough, diaphoresis, decreased appetite, dyspnea, fevers/chills, headache(s), malaise, nausea, rash, seizures, short of breath, syncope, vomiting or weakness Review of Systems Const: Denies: fever(s), chills, malaise or diaphoresis ENMT: Denies: throat pain, ear or mastoid pain, nasal discharge or nasal congestion Card: Reports: palpitations; Denies: chest pain or syncope Resp: Denies: dyspnea, productive cough or non-productive cough GI: Denies: abdominal pain, nausea or vomiting : Denies: flank pain, dysuria, urinary frequency or urinary urgency Musc: Reports: back pain; Denies: neck pain Skin/Breast: Denies: rash Neuro: Denies: headache(s) or confusion PFS ED PFSH: Medical History Abdominal aortic aneurysm (AAA) Aortic insufficiency with aortic stenosis Bladder cancer Chronic kidney disease, stage III (moderate) Dyslipidemia Gout Hypertension Sleep apnea Surgical History No pertinent past surgical history Social History Substance/Drug Use: never Physical Exam Const: GENERAL APPEARANCE: cooperative and comfortable OR IENTATION/CONSCIOUSNESS: Yes awake, Yes oriented to person, Yes oriented to place and Yes oriented to time HENMT: COMMON NORMALS: normocephalic, atraumatic and hearing grossly normal bilaterally HEAD & SCALP: normocephalic and atraumatic Resp: COMMON NORMALS: normal respiratory effort, No retractions, No use of accessory muscles and clear to auscultation bilaterally AUSCULTATION: clear to auscultation bilaterally Cardio: COMMON NORMALS: regular rate, regular rhythm and No murmurs present (Cardio) RATE: regular rate RHYTHM: regular rhythm GI: COMMON NORMALS: Soft to palpation and No hepatosplenomegaly present AUSCULTATION: Yes normoactive bowel sounds PALPATION: Yes Soft to palpation, No Tenderness to palpation present (GI), No Guarding due to palpation present (GI) and Yes No hepatosplenomegaly present Extremity: COMMON NORMALS: normal to inspection, capillary refill normal, no clubbing, cyanosis or edema, no calf tenderness and no pedal edema Neuro: SENSORIUM/ORIENTATION: Yes oriented to person, Yes oriented to place and Yes oriented to time Skin: COMMON NORMALS: no rashes or lesions noted GENERAL SKIN EXAM: no rashes or lesions noted Course Vital Signs: Vital signs: Vital Signs Temperature 97.7 F 11/12/22 12:33 Pulse Rate 84 11/12/22 15:35 Respiratory Rate 15 11/12/22 12:33 Blood Pressure 179/59 11/12/22 15:35 Pulse Oximetry 92 11/12/22 15:35 Oxygen Delivery Me thod Room Air 11/12/22 15:35 [facility] - General Adult Medical Decision Making Blood pressure improved with interventions Labs reviewed. Creatinine is mildly elevated and his potassium is very slightly low. His creatinine is at approximately his baseline where he has been in the past. Recommend starting amlodipine 10 mg daily recheck primary care doctor within the next week. Medical Records I reviewed the patient's medical records. Lab Data I reviewed the patient's lab results. 11/12/22 14:32 11/12/22 14:32 Laboratory Results WBC 9.71 10^3/uL (3.29-11.43) 11/12/22 14:32 RBC 5.00 10^6/uL (3.85-5.65) 11/12/22 14:32 Hgb 11.10 g/dL (11.27-16.99) L 11/12/22 14:32 Hct 36.8 % (37-53) L 11/12/22 14:32 MCV 73.6 fl (82-101) L 11/12/22 14:32 MCH 22.2 pg (27-33) L 11/12/22 14:32 MCHC 30.2 g/dL (30-55) 11/12/22 14:32 RDW 18.1 % (12.1-15.1) H 11/12/22 14:32 Plt Count 342 10^3/cmm (157-399) 11/12/22 14:32 MPV 11.4 fL (7.4-10.4) H 11/12/22 14:32 Neut % (Auto) 71.1 % 11/12/22 14:32 Lymph % (Auto) 20.8 % 11/12/22 14:32 Ferry % (Auto) 5.1 % 11/12/22 14:32 Eos % (Auto) 1.3 % 11/12/22 14:32 Baso % (Auto) 1.4 % 11/12/22 14:32 Neut # (Auto) 6.89 10^3/uL (1.8-7.7) 11/12/22 14:32 Lymph # (Auto) 2.0 10^3/uL (0.8-4.8) 11/12/22 14:32 Ferry # (Auto) 0.5 10^3/uL (0.2-0.9) 11/12/22 14:32 Eos # (Auto) 0.1 10^3/uL (0.0-0.8) 11/12/22 14:32 Baso # (Auto) 0.1 10^3/uL (0.0-0.1) 11/12/22 14:32 Nucleated RBC % (auto) 0 % 11/12/22 14:32 Nucleated RBCs # 0.0 /100WBC 11/12/22 14:32 Sodium 143 mmol/L (136-145) 11/12/22 14:32 Potassium 3.4 mmol/L (3.5-5.1) L 11/12/22 14:32 Chloride 103 mmol/L (98-107) 11/12/22 14:32 Carbon Dioxide 29 mmol/L (22-29) 11/12/22 14:32 Anion Gap 14.4 (5-19) 11/12/22 14:32 BUN 21 mg/dL (8-23) 11/12/22 14:32 Creatinine 2.1 mg/dL (0.7-1.2) H 11/12/22 14:32 GFR Calculation Not Reportable 11/12/22 14:32 Glucose 139 mg/dL (65-115) H 11/12/22 14:32 Calculated Osmolality 301 mOsm/kg (285-295) H 11/12/22 14:32 Calcium 8.5 mg/dL (8.5-10.5) 11/12/22 14:32 Total Bilirubin 0.5 mg/dL (0.15-1.2) 11/12/22 14:32 AST 14 U/L (0-40) 11/12/22 14:32 ALT 10 U/L (0-41) 11/12/22 14:32 Alkaline Phosphatase 109 U/L (40-130) 11/12/22 14:32 Total Protein 6.6 g/dL (6.6-8.7) 11/12/22 14:32 Albumin 3.9 g/dL (3.5-5.2) 11/12/22 14:32 Globulin 2.7 g/dL (1.3-4.6) 11/12/22 14:32 TSH 5.31 uIU/mL (0.27-4.20) H 11/12/22 14:32 Discharge Plan Discharge Patient Disposition: Home Clinical Impression: Hypertension Condition: Stable Prescriptions: New amlodipine 10 mg tablet 10 mg PO DAILY Qty: 30 0RF No Action furosemide 80 mg tablet 80 mg PO BID cyclosporine 100 mg capsule 100 mg PO BID Qty: 60 11RF cyclosporine 25 mg capsule 25 mg PO BID Rx Instructions: take this with the 100mg potassium chloride 8 mEq capsule, extended release 24 meq PO QAM finasteride 5 mg tablet 5 mg PO BID losartan 50 mg tablet 50 mg PO BID amlodipine 10 mg tablet 10 mg PO DAILY Vitamin D 3 2,000 mg PO DAILY tamsulosin 0.4 mg capsule 0.4 mg PO BID Qty: 60 11RF levothyroxine 175 mcg Tablet 175 mcg PO DAILY@04 aspirin 81 mg Tablet,Chewable 81 mg PO QPM Hold Instructions: Home Medication placed on hold at Doctor's office metoprolol tartrate 100 mg tablet 100 mg PO BID allopurinol 300 mg tablet 300 mg PO DAILY Discharge Orders: Discharge ED (Routine); Ordered 11/12/22 Ordered By: Paxton Sosa Referrals: Kaleb Daniel MD [Primary Care Provider] - Discharge Diet: Usual diet Discharge Activity: Increase activity as tolerated Patient Instructions: Opioid Safety, Pain Management Activity Restrictions/Additional Instructions: You are seen today for palpitations and elevated blood pressure recommend you continue your current medications add amlodipine 10 mg daily administrative support manager will make arrangements for you to follow-up with a Holter monitor after this is completed you should follow-up with your doctor. You should also follow-up with your doctor in the next 7 to 10 days to reevaluate blood pressure on this new medication. Is very important to continue all of the other previously prescribed medications as well. Coding Level of Care Code ED Supervisor Gelatin Plant for Tania Alcaraz
[2022-11-12 14:30] VITALS: BP 192/88; PULSE 73; O2SAT 92
[2022-11-12 14:40] LABS: Basophils # 0.1 10^3/uL (0.0-0.1); Basophils % 1.4 %; Eosinophils # 0.1 10^3/uL (0.0-0.8); Eosinophils % 1.3 %; Hematocrit 36.8 % (37-53); Lymphocytes % 20.8 %; Mean Corpuscular HGB Conc 30.2 g/dL (30-55); Mean Corpuscular Hemoglobin 22.2 pg (27-33); Mean Corpuscular Volume 73.6 fl (82-101); Mean Platelet Volume 11.4 fL (7.4-10.4); Monocytes # 0.5 10^3/uL (0.2-0.9); Monocytes % 5.1 %; Neutrophils # 6.89 10^3/uL (1.8-7.7); Neutrophils % 71.1 %; Nucleated Red Blood Cells % 0 %; Platelet Count 342 10^3/cmm (157-399); Red Cell Distribution Width 18.1 % (12.1-15.1); White Blood Count 9.71 10^3/uL (3.29-11.43)
[2022-11-12 15:14] LABS: Alanine Aminotransferase 10 U/L (0-41); Albumin Level 3.9 g/dL (3.5-5.2); Alkaline Phosphatase 109 U/L (40-130); Anion Gap 14.4 (5-19); Aspartate Amino Transferase 14 U/L (0-40); Blood Urea Nitrogen 21 mg/dL (8-23); Calcium 8.5 mg/dL (8.5-10.5); Carbon Dioxide 29 mmol/L (22-29); Chloride 103 mmol/L (98-107); Globulin 2.7 g/dL (1.3-4.6); Glucose 139 mg/dL (65-115); Osmolality Calculated 301 mOsm/kg (285-295); Potassium 3.4 mmol/L (3.5-5.1); Sodium 143 mmol/L (136-145); Thyroid Stimulating Hormone 5.31 uIU/mL (0.27-4.20); Total Bilirubin 0.5 mg/dL (0.15-1.2); Total Protein 6.6 g/dL (6.6-8.7)
[2022-11-12] MEDS: hyDRALAzine 20 mg/mL INJ 1 mL IVP (15:15)
[2022-11-12] MEDS: amlodipine 10 mg Tablet PO (15:15)
[2022-11-12 15:35] VITALS: BP 179/59; PULSE 84; O2SAT 92
--- NOTE | 2022-11-16 07:47 | PC.NURSE ---
Called pt at Dr. Sosa's request. Pt given a prescription for Amlodipine, but pt already takes this. Clarified with pt that he is to only take one of the prescriptions, not both of them. Pt verbalized understanding.
== END 2022-11-12 15:56 | disposition home or self-care (01) ==
PROVIDERS: Emergency Provider Family Medicine; PCP Family Medicine
DX: I12.9 Hypertensive chronic kidney disease with stage 1 through stage 4 chronic kidney disease, or unspecified chronic kidney disease (principal); N18.30 Chronic kidney disease, stage 3 unspecified; Z79.82 Long term (current) use of aspirin; Z85.51 Personal history of malignant neoplasm of bladder; E78.5 Hyperlipidemia, unspecified
CPT/HCPCS: 36415; 80053; 84443; 85025; 93005; 96374; 99284; J0360

== ENCOUNTER 2022-11-19 14:03 | Outpatient (CLI) | payer MEDICARE, SELFPAY ==
[2022-11-19 15:03] LABS: Ferritin 16 ng/mL (30-400)
[2022-11-20 13:14] LABS: Cyclosporine A Trough Level 234 mcg/L
== END 2022-11-19 14:04 | disposition home or self-care (01) ==
PROVIDERS: PCP Family Medicine; Visit Provider Internal Medicine Nephrology
DX: N18.32 Chronic kidney disease, stage 3b (principal); D63.1 Anemia in chronic kidney disease
CPT/HCPCS: 36415; 80158; 82728

== ENCOUNTER → 2022-12-07 13:37 | Outpatient (BNVA) | payer MEDICARE, SELFPAY | PROVIDERS: PCP Family Medicine; Visit Provider Family Medicine | DX: J06.9 Acute upper respiratory infection, unspecified (principal) | CPT/HCPCS: 87426 ==

== ENCOUNTER → 2023-01-08 12:00 | Outpatient (BNVA) | payer MEDICARE, SELFPAY | PROVIDERS: PCP Family Medicine; Visit Provider Family Medicine | DX: N18.4 Chronic kidney disease, stage 4 (severe) (principal) | CPT/HCPCS: 80069; 82043; 82306; 85025 ==

== ENCOUNTER → 2023-01-19 11:50 | Outpatient (BNVA) | payer MEDICARE, SELFPAY | PROVIDERS: PCP Family Medicine; Visit Provider Family Medicine | DX: N05.1 Unspecified nephritic syndrome with focal and segmental glomerular lesions (principal) | CPT/HCPCS: 80069; 82570; 84156 ==

== ENCOUNTER 2023-01-26 06:37 | Outpatient (CLI) | payer MEDICARE, SELFPAY ==
--- NOTE | 2023-01-26 07:15 | USCV_ITS ---
Emanuel Mcneal Age: 72 Gender: M : 1950 Exam Date: 01/26/2023 06:44 Ordering Phys: Te Landeros MD ([email or web address]) Technologist: RAGINI Exam Location: [facility] [place] Indication: EVAL FOR AAA HISTORY: Diameter (cm) AP x Transverse x Length Velocity (cm/s) Waveform Prox Aorta: 2.38 x 2.62 x 82.70 Mid Aorta: 2.62 x 2.82 x 82.70 Distal Aorta: 5.14 x 4.29 x 5.89 88.10 Right Iliac Prox: x x Left Iliac Prox: x x Stent Prox Landing x x Aneurysmal Sac Max x x Lt Lat Sac Dim Rt Lat Sac Dim Stent Dist Landing x x Right Iliac Stent x x Left Iliac Stent x x Right Renal Art Left Renal Art FINDINGS: AAA seen at dist. Iliacs not seen due to bowel gas CONCLUSIONS Distal AAA measuring 5.1 x 4.3 x 5.8cm Iliacs not seen due to bowel gas Moderate aoric atheromatous disease Jonathan Betancourt MD (Electronically Signed) Final Date: 26 January 2023 15:58 S
== END 2023-01-26 06:38 | disposition home or self-care (01) ==
LOC: RAD 06:37
PROVIDERS: PCP Family Medicine; Visit Provider Internal Medicine Cardiovascular Disease
DX: I71.40 Abdominal aortic aneurysm, without rupture, unspecified (principal); I70.0 Atherosclerosis of aorta
CPT/HCPCS: 93978

== ENCOUNTER → 2023-02-22 11:35 | Outpatient (BNVA) | payer MEDICARE, SELFPAY | PROVIDERS: PCP Family Medicine; Visit Provider Internal Medicine Cardiovascular Disease | DX: I11.0 Hypertensive heart disease with heart failure (principal); I50.9 Heart failure, unspecified; I71.40 Abdominal aortic aneurysm, without rupture, unspecified; I49.3 Ventricular premature depolarization; E78.5 Hyperlipidemia, unspecified; C67.9 Malignant neoplasm of bladder, unspecified; G47.30 Sleep apnea, unspecified | CPT/HCPCS: 99214 ==

== ENCOUNTER 2023-03-09 14:25 | Outpatient (CLI) | payer MEDICARE, SELFPAY ==
[2023-03-09 14:36] LABS: Basophils # 0.1 10^3/uL (0.0-0.1); Basophils % 1.3 %; Eosinophils # 0.2 10^3/uL (0.0-0.8); Eosinophils % 1.8 %; Hematocrit 38.5 % (37-53); Lymphocytes # 2.8 10^3/uL (0.8-4.8); Lymphocytes % 26.1 %; Mean Corpuscular HGB Conc 31.2 g/dL (30-55); Mean Corpuscular Hemoglobin 24.3 pg (27-33); Mean Corpuscular Volume 77.9 fl (82-101); Mean Platelet Volume 11.1 fL (7.4-10.4); Monocytes # 0.9 10^3/uL (0.2-0.9); Monocytes % 8.1 %; Neutrophils # 6.81 10^3/uL (1.8-7.7); Neutrophils % 62.4 %; Nucleated Red Blood Cells % 0 %; Platelet Count 378 10^3/cmm (157-399); Red Blood Count 4.94 10^6/uL (3.85-5.65); Red Cell Distribution Width 19.4 % (12.1-15.1)
[2023-03-09 14:55] LABS: Alanine Aminotransferase 11 U/L (0-41); Albumin Level 3.6 g/dL (3.5-5.2); Alkaline Phosphatase 105 U/L (40-130); Anion Gap 16.4 (5-19); Aspartate Amino Transferase 16 U/L (0-40); Blood Urea Nitrogen 24 mg/dL (8-23); Calcium 8.9 mg/dL (8.5-10.5); Carbon Dioxide 26 mmol/L (22-29); Chloride 102 mmol/L (98-107); Globulin 3.1 g/dL (1.3-4.6); Glucose 111 mg/dL (65-115); Osmolality Calculated 295 mOsm/kg (285-295); Potassium 4.4 mmol/L (3.5-5.1); Sodium 140 mmol/L (136-145); Total Bilirubin 0.6 mg/dL (0.15-1.2); Total Protein 6.7 g/dL (6.6-8.7)
== END 2023-03-09 14:26 | disposition home or self-care (01) ==
LOC: LAB 14:25
PROVIDERS: PCP Family Medicine; Visit Provider Family Medicine
DX: I13.0 Hypertensive heart and chronic kidney disease with heart failure and stage 1 through stage 4 chronic kidney disease, or unspecified chronic kidney disease (principal); I50.9 Heart failure, unspecified; N18.30 Chronic kidney disease, stage 3 unspecified
CPT/HCPCS: 36415; 80053; 85025

== ENCOUNTER → 2023-04-19 14:42 | Outpatient (BNVA) | payer MEDICARE, SELFPAY | PROVIDERS: PCP Family Medicine; Visit Provider Family Medicine | DX: I10 Essential (primary) hypertension (principal); I50.9 Heart failure, unspecified; N18.30 Chronic kidney disease, stage 3 unspecified | CPT/HCPCS: 80053; 83880; 85025 ==

== ENCOUNTER 2023-06-02 13:21 | Outpatient (CLI) | payer MEDICARE, SELFPAY ==
[2023-06-02 16:27] LABS: 25 Hydroxy Vitamin D 16 ng/mL (30-100); Albumin Level 3.7 g/dL (3.5-5.2); Anion Gap 15.4 (5-19); Blood Urea Nitrogen 32 mg/dL (8-23); Carbon Dioxide 27 mmol/L (22-29); Chloride 104 mmol/L (98-107); Glucose 116 mg/dL (65-115); Phosphorus 3.8 mg/dL (2.5-4.5); Potassium 3.4 mmol/L (3.5-5.1); Sodium 143 mmol/L (136-145)
[2023-06-02 16:33] LABS: Calcium 8.9 mg/dL (8.5-10.5); Parathyroid Hormone 158.2 pg/mL (15-65)
[2023-06-03 13:10] LABS: Anti-Double Strand DNA AB <1 IU/mL; Jo-1 Antibody <1.0 NEG AI (<1.0 NEG); SS-B/LA IGG <1.0 NEG AI (<1.0 NEG); Scleroderma Ab(Scl-70) Ab <1.0 NEG AI (<1.0 NEG); Ss-A/Ro Igg <1.0 NEG AI (<1.0 NEG)
[2023-06-04 08:49] LABS: ALBUMIN 3.4 g/dL (3.8-4.8); ALPHA 1 GLOBULIN 0.3 g/dL (0.2-0.3); ALPHA 2 GLOBULIN 0.8 g/dL (0.5-0.9); BETA 1 GLOBULIN 0.4 g/dL (0.4-0.6); BETA 2 GLOBULIN 0.4 g/dL (0.2-0.5); GAMMA GLOBULIN 0.7 g/dL (0.8-1.7)
[2023-06-04 09:34] LABS: ANCA Screen NEGATIVE (NEGATIVE)
[2023-06-07 15:03] LABS: KAPPA LIGHT CHAIN, FREE, SERUM 55.4 mg/L (3.3-19.4); KAPPA/LAMBDA LIGHT CHAINS FREE 0.99 (0.26-1.65)
== END 2023-06-02 13:22 | disposition home or self-care (01) ==
LOC: LAB 13:28
PROVIDERS: Registered Nurse; PCP Family Medicine; Visit Provider Urology
DX: Z01.89 Encounter for other specified special examinations (principal)
CPT/HCPCS: 36415; 80069; 82306; 82310; 83883; 83970; 84155; 84165; 86036; 86225; 86235

== ENCOUNTER → 2023-08-23 11:26 | Outpatient (BNVA) | payer MEDICARE, SELFPAY | PROVIDERS: PCP Family Medicine; Visit Provider Internal Medicine Cardiovascular Disease | DX: I13.0 Hypertensive heart and chronic kidney disease with heart failure and stage 1 through stage 4 chronic kidney disease, or unspecified chronic kidney disease (principal); I50.9 Heart failure, unspecified; N18.30 Chronic kidney disease, stage 3 unspecified; R93.1 Abnormal findings on diagnostic imaging of heart and coronary circulation; I49.3 Ventricular premature depolarization; I35.2 Nonrheumatic aortic (valve) stenosis with insufficiency; I71.40 Abdominal aortic aneurysm, without rupture, unspecified; E78.5 Hyperlipidemia, unspecified; G47.30 Sleep apnea, unspecified | CPT/HCPCS: 99213 ==

== ENCOUNTER → 2023-08-24 06:01 | Outpatient (CLI) | payer MEDICARE, SELFPAY ==
--- NOTE | 2023-08-24 06:15 | USCV_ITS ---
Elizabet Emanuel Age: 72 Gender: M : 1950 Exam Date: 08/24/2023 06:06 Ordering Phys: Te Landeros MD ([email or web address]) Technologist: Exam Location: [facility] [place] Indication: aaa HISTORY: Diameter (cm) AP x Transverse x Length Velocity (cm/s) Waveform Prox Aorta: 2.10 x 2.80 x 79.10 Biphasic Mid Aorta: 2.20 x 2.30 x 97.70 Biphasic Distal Aorta: 4.00 x 4.40 x 91.00 Biphasic Right Iliac Prox: 1.40 x 1.30 x 246.50 Biphasic Left Iliac Prox: 1.40 x 1.60 x 176.30 Biphasic Stent Prox Landing x x Aneurysmal Sac Max x x Lt Lat Sac Dim Rt Lat Sac Dim Stent Dist Landing x x Right Iliac Stent x x Left Iliac Stent x x Right Renal Art Left Renal Art FINDINGS: Comparison:. 01/26/23 Suboptimal imaging technique. Visualization of internal aorta is not possible. Inadequate doppler evaluation. The AAA is measuring smaller today than on the prior exam. CONCLUSIONS Suboptimal evaluation of AAA. Recommend CTA aorta. Dr. Mirna Khan DO (Electronically Signed) Final Date: 24 August 2023 08:16 S
== END | disposition home or self-care (01) ==
LOC: RAD 06:00
PROVIDERS: PCP Family Medicine; Visit Provider Internal Medicine Cardiovascular Disease
DX: I71.40 Abdominal aortic aneurysm, without rupture, unspecified (principal)
CPT/HCPCS: 93978

== ENCOUNTER → 2023-08-26 11:29 | Outpatient (BNVA) | payer MEDICARE, SELFPAY | PROVIDERS: PCP Family Medicine; Visit Provider Family Medicine | DX: N18.30 Chronic kidney disease, stage 3 unspecified (principal); I13.0 Hypertensive heart and chronic kidney disease with heart failure and stage 1 through stage 4 chronic kidney disease, or unspecified chronic kidney disease | CPT/HCPCS: 80053; 83880; 85025 ==

== ENCOUNTER 2023-09-01 12:00 | Outpatient (CLI) | payer MEDICARE, SELFPAY ==
--- NOTE | 2023-09-01 12:00 | CTR_ITS ---
PROCEDURE INFORMATION: Exam: CT Abdomen Without Contrast Exam date and time: 09/01/2023 12:16 PM Age: 72 years old Clinical indication: Condition or disease; Primary cancer: Bladder; Patient HX: Follow up US, aaa, creatinine was 2.4, bun 35 gfr 26 TECHNIQUE: Imaging protocol: Computed tomography of the abdomen without contrast. Radiation optimization: All CT scans at this facility use at least one of these dose optimization techniques: automated exposure control; mA and/or kV adjustment per patient size (includes targeted exams where dose is matched to clinical indication); or iterative reconstruction. COMPARISON: US renal BI* [id number] 09/22/2022 8:04 AM RADIATION DOSE METRICS: Total DLP (mGy-cm): 535.89 FINDINGS: Liver: Normal. No mass. Gallbladder and biliary ducts: Normal. No calcified stones. No ductal dilation. Pancreas: Normal. No ductal dilation. Spleen: Normal. No splenomegaly. Adrenal glands: Normal. No mass. Kidneys and ureters: There is a 4.2 cm cyst in the inferior left kidney. Stomach and bowel: Visualized stomach and bowel are unremarkable. No obstruction. No mucosal thickening. Intraperitoneal space: Unremarkable. No free air. No significant fluid collection. Vasculature: There is infrarenal abdominal aortic aneurysm measuring 5.5 cm. No retroperitoneal bleed. There is vascular atherosclerotic calcification. Lymph nodes: Unremarkable. No enlarged lymph nodes. Bones/joints: Degenerative change is identified in the spine. No acute fracture. No dislocation. Soft tissues: Unremarkable. CT/CT abdomen wo con [id number] IMPRESSION: There is infrarenal abdominal aortic aneurysm. No retroperitoneal bleed. COMMENTS: Consistent with the [employer]'s Incidental Findings Committee white paper (J Am Maddie Radiol 2018): Any incidental renal lesion less than 1 cm or classified as too small to characterize, or any incidental cystic renal lesion characterized as simple-appearing, is likely benign. No follow-up imaging is recommended for these lesions per consensus recommendations based on imaging criteria.
== END 2023-09-01 12:11 | disposition home or self-care (01) ==
PROVIDERS: PCP Family Medicine; Visit Provider Internal Medicine Cardiovascular Disease
DX: I71.40 Abdominal aortic aneurysm, without rupture, unspecified (principal); N28.1 Cyst of kidney, acquired
CPT/HCPCS: 74150

== ENCOUNTER → 2023-09-07 15:25 | Outpatient (BNVA) | payer MEDICARE, SELFPAY | PROVIDERS: PCP Family Medicine; Visit Provider Family Medicine | DX: R79.89 Other specified abnormal findings of blood chemistry (principal); N18.30 Chronic kidney disease, stage 3 unspecified | CPT/HCPCS: 80069; 80158; 82306; 82542; 82570; 83735; 84156; 84550; 85025 ==

== ENCOUNTER → 2023-09-10 12:42 | Outpatient (BNVA) | payer MEDICARE, SELFPAY | PROVIDERS: PCP Family Medicine; Visit Provider Family Medicine | DX: N18.30 Chronic kidney disease, stage 3 unspecified (principal) | CPT/HCPCS: 82310; 83970 ==

== ENCOUNTER 2023-09-27 09:13 | Outpatient (CLI) | payer MEDICARE, SELFPAY ==
[2023-09-27 11:18] LABS: Urine Creatinine 60 mg/dL (39-259)
[2023-09-27 11:34] LABS: UPRO/UCREAT Ratio 3.65 mg/mg CR; Urine Protein Random 219 mg/dL
[2023-09-28 13:09] LABS: Cyclosporine A Trough Level 284 mcg/L
== END 2023-09-27 09:14 | disposition home or self-care (01) ==
LOC: LAB 09:16
PROVIDERS: PCP Family Medicine
DX: N26.9 Renal sclerosis, unspecified (principal)
CPT/HCPCS: 36415; 80158; 82570; 84156

== ENCOUNTER → 2023-11-04 15:40 | Outpatient (BNVA) | payer MEDICARE, SELFPAY | PROVIDERS: PCP Family Medicine; Visit Provider Family Medicine | DX: E11.9 Type 2 diabetes mellitus without complications (principal); N18.30 Chronic kidney disease, stage 3 unspecified | CPT/HCPCS: 80048; 84443 ==

== ENCOUNTER → 2023-12-14 13:04 | Outpatient (BNVA) | payer MEDICARE, SELFPAY | PROVIDERS: PCP Family Medicine; Visit Provider Family Medicine | DX: N18.30 Chronic kidney disease, stage 3 unspecified (principal); R79.89 Other specified abnormal findings of blood chemistry | CPT/HCPCS: 80069; 82306; 82542; 82570; 84156; 85025 ==

== ENCOUNTER 2024-01-07 09:51 | Outpatient (CLI) | payer MEDICARE, SELFPAY ==
[2024-01-07 10:43] LABS: Blood Urea Nitrogen 39 mg/dL (8-23); Carbon Dioxide 25 mmol/L (22-29); Chloride 103 mmol/L (98-107); Glucose 126 mg/dL (65-115); Osmolality Calculated 303 mOsm/kg (285-295); Sodium 141 mmol/L (136-145)
[2024-01-07 11:00] LABS: Estmated Average Glucose 114; Hemoglobin A1C 5.6 % (4.0-6.0)
[2024-01-10 16:15] LABS: Cyclosporine A Trough Level 114 mcg/L
== END 2024-01-07 09:52 | disposition home or self-care (01) ==
LOC: LAB 09:52
PROVIDERS: PCP Family Medicine; Visit Provider Registered Nurse
DX: N18.32 Chronic kidney disease, stage 3b (principal)
CPT/HCPCS: 36415; 80048; 80158; 83036

== ENCOUNTER 2024-02-11 07:00 | Outpatient (CLI) | payer MEDICARE, SELFPAY ==
--- NOTE | 2024-02-11 07:00 | USCV_ITS ---
Emanuel Mcneal Age: 73 Gender: M : 1950 Exam Date: 02/11/2024 07:17 Ordering Phys: Deann Kong MD ([email or web address]) Technologist: USR Exam Location: [facility] [place] Indication: AAA HISTORY: Diameter (cm) AP x Transverse x Length Velocity (cm/s) Waveform Prox Aorta: 2.18 x 2.18 x 65.20 Triphasic Mid Aorta: 4.28 x 4.35 x 4.20 59.40 Triphasic Distal Aorta: 4.70 x 3.20 x 5.90 56.30 Triphasic Right Iliac Prox: 1.87 x 2.21 x 101.30 Triphasic Left Iliac Prox: 1.47 x 1.63 x 160.90 Triphasic Stent Prox Landing x x Aneurysmal Sac Max x x Lt Lat Sac Dim Rt Lat Sac Dim Stent Dist Landing x x Right Iliac Stent x x Left Iliac Stent x x Right Renal Art Left Renal Art FINDINGS: CONCLUSIONS Mid and Distal fusiform AAA measuring largest distally 4.7 x 3.2 x 5.9cm similiar to previous 08/29. 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
== END 2024-02-11 07:04 | disposition home or self-care (01) ==
PROVIDERS: PCP Family Medicine; Visit Provider Internal Medicine Cardiovascular Disease
DX: I71.40 Abdominal aortic aneurysm, without rupture, unspecified (principal); I72.3 Aneurysm of iliac artery
CPT/HCPCS: 93978

== ENCOUNTER → 2024-02-21 12:39 | Outpatient (BNVA) | payer MEDICARE, SELFPAY | PROVIDERS: PCP Family Medicine; Visit Provider Internal Medicine Cardiovascular Disease | DX: I10 Essential (primary) hypertension (principal); R60.9 Edema, unspecified | CPT/HCPCS: 36415; 80048 ==

== ENCOUNTER 2024-03-14 10:31 | Outpatient (CLI) | payer MEDICARE, SELFPAY ==
[2024-03-14 11:12] LABS: Anion Gap 18.4 (5-19); Calcium 9.8 mg/dL (8.5-10.5); Carbon Dioxide 27 mmol/L (22-29); Chloride 97 mmol/L (98-107); Glucose 170 mg/dL (65-115); Osmolality Calculated 317 mOsm/kg (285-295); Potassium 4.4 mmol/L (3.5-5.1); Sodium 138 mmol/L (136-145)
[2024-03-14 11:57] LABS: Blood Urea Nitrogen 87 mg/dL (8-23)
== END 2024-03-14 10:32 | disposition home or self-care (01) ==
LOC: LAB 10:36
PROVIDERS: PCP Family Medicine; Visit Provider Internal Medicine Cardiovascular Disease
DX: I50.9 Heart failure, unspecified (principal); N18.30 Chronic kidney disease, stage 3 unspecified
CPT/HCPCS: 36415; 80048

== ENCOUNTER 2024-03-27 13:17 | Outpatient (CLI) | payer MEDICARE, SELFPAY ==
[2024-03-27 14:03] LABS: Anion Gap 22.4 (5-19); Calcium 9.2 mg/dL (8.5-10.5); Carbon Dioxide 27 mmol/L (22-29); Chloride 94 mmol/L (98-107); Glucose 121 mg/dL (65-115); Potassium 4.4 mmol/L (3.5-5.1); Sodium 139 mmol/L (136-145)
[2024-03-27 14:38] LABS: Osmolality Calculated 330 mOsm/kg (285-295)
[2024-03-27 14:40] LABS: Blood Urea Nitrogen 127 mg/dL (8-23)
== END 2024-03-27 13:18 | disposition home or self-care (01) ==
LOC: LAB 13:19
PROVIDERS: PCP Family Medicine; Visit Provider Internal Medicine Cardiovascular Disease
DX: I50.9 Heart failure, unspecified (principal); I10 Essential (primary) hypertension
CPT/HCPCS: 36415; 80048

== ENCOUNTER 2024-03-30 13:35 | Emergency (ER) | payer MEDICARE, SELFPAY ==
[2024-03-30 13:48] VITALS: BP 161/71; PULSE 66; RESP 18; TEMP 36.3; O2SAT 94; BMI 37.2
[2024-03-30 14:13] VITALS: BP 160/65; PULSE 67; RESP 18; O2SAT 94
[2024-03-30 14:16] LABS: Basophils # 0.1 10^3/uL (0.0-0.1); Eosinophils # 0.3 10^3/uL (0.0-0.8); Eosinophils % 3.7 %; Hematocrit 35.7 % (37-53); Lymphocytes # 2.3 10^3/uL (0.8-4.8); Lymphocytes % 24.9 %; Mean Corpuscular HGB Conc 33.9 g/dL (30-55); Mean Corpuscular Hemoglobin 31.2 pg (27-33); Mean Platelet Volume 11.4 fL (7.4-10.4); Monocytes # 0.8 10^3/uL (0.2-0.9); Monocytes % 8.6 %; Neutrophils # 5.73 10^3/uL (1.8-7.7); Neutrophils % 61.5 %; Nucleated Red Blood Cells % 0 %; Platelet Count 298 10^3/cmm (157-399); Red Blood Count 3.88 10^6/uL (3.85-5.65); White Blood Count 9.31 10^3/uL (3.29-11.43)
[2024-03-30 14:30] VITALS: BP 138/61; PULSE 66; O2SAT 93
--- NOTE | 2024-03-30 14:30 | W.ED.RECABL ---
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 Recent medication changes include losartan was changed to valsartan 2 months ago, then metolazone was added as needed about 1 month ago. He has been taking it almost daily since it was prescribed. He has been having fatigue and low energy over the last several days. He denies chest pain, shortness of breath, palpitations, severe headache, abdominal pain or diarrhea. No recent illnesses, no issues with urination. Related Data Home Medications Medication Instructions Recorded Confirmed furosemide 80 mg tablet 80 mg PO BID 08/10/22 03/30/24 potassium chloride 8 mEq 24 meq PO QAM 10/19/22 03/30/24 capsule,extended release metoprolol tartrate 100 mg tablet 100 mg PO BID 11/12/22 03/30/24 empagliflozin 10 mg tablet 10 mg PO DAILY 02/21/24 03/30/24 (Jardiance) finasteride 5 mg tablet 5 mg PO DAILY 02/21/24 03/30/24 hydralazine 50 mg tablet 50 mg PO TID 02/21/24 03/30/24 allopurinol 300 mg tablet 300 mg PO DAILY 03/30/24 03/30/24 amlodipine 10 mg tablet 10 mg PO DAILY 03/30/24 03/30/24 levothyroxine 175 mcg tablet 175 mcg PO DAILY 03/30/24 03/30/24 Previous Rx's Medication Instructions Recorded cyclosporine 100 mg capsule 100 mg PO BID #60 caps 11/11/21 nitroglycerin 0.4 mg sublingual 0.4 mg sublingual Q5M PRN chest 08/26/23 tablet pain #20 tabs metolazone 2.5 mg tablet 2.5 mg PO DAILY #90 tabs 02/21/24 valsartan 160 mg tablet 160 mg PO DAILY #90 tabs 02/21/24 albuterol sulfate 90 mcg/actuation 2 puff inhalation Q4H PRN 03/03/24 aerosol inhaler (Ventolin HFA) shortness of breath or wheezing #8.5 grams Allergies Allergy/AdvReac Type Severity Reaction Status Date / Time No Known Drug Allergies Allergy Unknown Verified 03/30/24 13:54 Review of Systems Const: Reports: fatigue and malaise; Denies: fever(s) Eyes: Denies: change in vision Card: Reports: swelling of feet/ankles; Denies: chest pain, palpitations or irregular heart rhythm Resp: Denies: dyspnea or productive cough GI: Denies: abdominal pain or diarrhea : Denies: difficulty urinating PFSH ED PFSH: Medical History Sleep apnea Dyslipidemia Abdominal aortic aneurysm (AAA) Bladder cancer Aortic insufficiency with aortic stenosis Hypertension Gout Chronic kidney disease, stage III (moderate) Surgical History No pertinent past surgical history Social History Smoking and tobacco/nicotine status: former use of tobacco/nicotine Substance/Drug Use: never Physical Exam Const: COMMON NORMALS: no acute distress, patient oriented x3 and alert NUTRITIONAL APPEARANCE: obese ORIENTATION/CONSCIOUSNESS: Yes awake HENMT: COMMON NORMALS: normocephalic and atraumatic HEAD & SCALP: normocephalic and atraumatic Resp: COMMON NORMALS: normal respiratory effort and clear to auscultation bilaterally EFFORT & INSPECTION: Yes able to speak in complete sentences AUSCULTATION: clear to auscultation bilaterally Cardio: COMMON NORMALS: regular rate, S1 normal heart sound present and S2 normal heart sound present RATE: regular rate HEART SOUNDS: S1 normal heart sound present, S2 normal heart sound present and no murmurs GI: COMMON NORMALS: Normal to inspection, nondistended, normoactive bowel sounds present, Soft to palpation and non-tender PALPATION: Yes Soft to palpation Neuro: COMMON NORMALS: patient oriented x3 SENSORIUM/ORIENTATION: Yes alert Course Vital Signs: Vital signs: Vital Signs Temperature 97.4 F L 03/30/24 13:48 Pulse Rate 66 03/30/24 14:30 Respiratory Rate 18 03/30/24 14:13 Blood Pressure 138/61 03/30/24 14:30 Pulse Oximetry 93 03/30/24 14:30 Oxygen Delivery Me thod Room Air 03/30/24 14:30 MDM - Recheck/Abnormal Lab/Rx Medical Decision Making Patient presents here with concern for worsening kidney function. He had held his metolazone his creatinine is improved here is at 4.3 his BUN is improved as well he has no signs of hyperkalemia I did speak to his nephrology clinic I feel he stable for discharge they are going to follow him up patient states he feels improved would like to go home his feel he is stable for discharge at this time he is to return if worsening he understands agrees to plan Medical Records I reviewed the patient's medical records. Lab Data I reviewed the patient's lab results. 03/30/24 14:10 03/30/24 14:10 Radiology Impressions Chest X-Ray 03/30/24 14:42 Impression: Atherosclerosis and cardiomegaly. Laboratory Results WBC 9.31 10^3/uL (3.29-11.43) 03/30/24 14:10 RBC 3.88 10^6/uL (3.85-5.65) 03/30/24 14:10 Hgb 12.10 g/dL (11.27-16.99) 03/30/24 14:10 Hct 35.7 % (37-53) L 03/30/24 14:10 MCV 92.0 fl (82-101) 03/30/24 14:10 MCH 31.2 pg (27-33) 03/30/24 14:10 MCHC 33.9 g/dL (30-55) 03/30/24 14:10 RDW 14.0 % (12.1-15.1) 03/30/24 14:10 Plt Count 298 10^3/cmm (157-399) 03/30/24 14:10 MPV 11.4 fL (7.4-10.4) H 03/30/24 14:10 Neut % (Auto) 61.5 % 03/30/24 14:10 Lymph % (Auto) 24.9 % 03/30/24 14:10 Mower % (Auto) 8.6 % 03/30/24 14:10 Eos % (Auto) 3.7 % 03/30/24 14:10 Baso % (Auto) 1.0 % 03/30/24 14:10 Neut # (Auto) 5.73 10^3/uL (1.8-7.7) 03/30/24 14:10 Lymph # (Auto) 2.3 10^3/uL (0.8-4.8) 03/30/24 14:10 Mower # (Auto) 0.8 10^3/uL (0.2-0.9) 03/30/24 14:10 Eos # (Auto) 0.3 10^3/uL (0.0-0.8) 03/30/24 14:10 Baso # (Auto) 0.1 10^3/uL (0.0-0.1) 03/30/24 14:10 Nucleated RBC % (auto) 0 % 03/30/24 14:10 Nucleated RBCs # 0.0 /100WBC 03/30/24 14:10 Sodium 136 mmol/L (136-145) 03/30/24 14:10 Potassium 4.0 mmol/L (3.5-5.1) 03/30/24 14:10 Chloride 94 mmol/L (98-107) L 03/30/24 14:10 Carbon Dioxide 25 mmol/L (22-29) 03/30/24 14:10 Anion Gap 21.0 (5-19) H 03/30/24 14:10 BUN 101 mg/dL (8-23) H* 03/30/24 14:10 Creatinine 4.3 mg/dL (0.7-1.2) H 03/30/24 14:10 GFR Calculation Not Reportable 03/30/24 14:10 Glucose 129 mg/dL (65-115) H 03/30/24 14:10 Calculated Osmolality 315 mOsm/kg (285-295) H 03/30/24 14:10 Calcium 8.9 mg/dL (8.5-10.5) 03/30/24 14:10 Total Bilirubin 0.5 mg/dL (0.15-1.2) 03/30/24 14:10 AST 13 U/L (0-40) 03/30/24 14:10 ALT 7 U/L (0-41) 03/30/24 14:10 Alkaline Phosphatase 84 U/L (40-130) 03/30/24 14:10 Total Protein 7.5 g/dL (6.6-8.7) 03/30/24 14:10 Albumin 4.1 g/dL (3.5-5.2) 03/30/24 14:10 Globulin 3.4 g/dL (1.3-4.6) 03/30/24 14:10 No radiology studies performed this visit EKG Data EKG 1: I personally reviewed and interpreted this EKG as follows: EKG interpretation date: 03/30/24 EKG interpretation time: 14:46 Interpretation: ns rhr [address] elevation qrs 122 qtc 465 Discharge Plan Discharge Patient Disposition: Home Clinical Impression: Chronic kidney disease, stage III (moderate) Condition: Stable Prescriptions: No Action furosemide 80 mg tablet 80 mg PO BID cyclosporine 100 mg capsule 100 mg PO BID Qty: 60 11RF potassium chloride 8 mEq capsule, extended release 24 meq PO QAM nitroglycerin 0.4 mg tablet, sublingual 0.4 mg sublingual Q5M PRN (Reason: chest pain) Qty: 20 11RF Rx Instructions: do not exceed 3 doses per episode finasteride 5 mg tablet 5 mg PO DAILY hydralazine 50 mg tablet 50 mg PO TID Jardiance 10 mg tablet 10 mg PO DAILY valsartan 160 mg tablet 160 mg PO DAILY Qty: 90 3RF metolazone 2.5 mg tablet 2.5 mg PO DAILY Qty: 90 3RF albuterol sulfate [Ventolin HFA] 90 mcg/actuation HFA aerosol inhaler 2 puff inhalation Q4H PRN (Reason: shortness of breath or wheezing) Qty: 8.5 0RF metoprolol tartrate 100 mg tablet 100 mg PO BID levothyroxine 175 mcg tablet 175 mcg PO DAILY Rx Instructions: TAKE 1 TABLET BY MOUTH EVERY DAY amlodipine 10 mg tablet 10 mg PO DAILY Rx Instructions: TAKE 1 TABLET BY MOUTH DAILY allopurinol 300 mg tablet 300 mg PO DAILY Rx Instructions: TAKE 1 TABLET BY MOUTH EVERY DAY FOR GOUT Discharge Orders: Discharge ED (Routine); Ordered 03/30/24 Ordered By: Sara Haas Referrals: Kaleb Daniel MD [Primary Care Provider] - 4-7 days Discharge Diet: Advance as tolerated Discharge Activity: Resume usual activity Patient Instructions: Chronic Kidney Disease (ED) Coding Level of Care Code 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
[2024-03-30 14:41] LABS: Alanine Aminotransferase 7 U/L (0-41); Albumin Level 4.1 g/dL (3.5-5.2); Alkaline Phosphatase 84 U/L (40-130); Aspartate Amino Transferase 13 U/L (0-40); Calcium 8.9 mg/dL (8.5-10.5); Carbon Dioxide 25 mmol/L (22-29); Chloride 94 mmol/L (98-107); Creatinine Clr Calc Pharmacy 17.9489; Globulin 3.4 g/dL (1.3-4.6); Glucose 129 mg/dL (65-115); Osmolality Calculated 315 mOsm/kg (285-295); Sodium 136 mmol/L (136-145); Total Bilirubin 0.5 mg/dL (0.15-1.2); Total Protein 7.5 g/dL (6.6-8.7)
--- NOTE | 2024-03-30 14:42 | ECG_ITS ---
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 Measurements Intervals [place] Rate: 63 P: 69 NJ: 147 QRS: 58 QRSD: 122 T: 86 QT: 458 QTc: 470 Interpretive Statements SINUS RHYTHM MODERATE INTRAVENTRICULAR CONDUCTION DELAY [110+ ms QRS DURATION] NONSPECIFIC T-WAVE ABNORMALITY PROLONGED QT INTERVAL Compared to ECG 11/12/2022 11:11:01 Intraventricular conduction delay now present T-wave abnormality now present Prolonged QT interval now present Ventricular premature complex(es) no longer present Left ventricular hypertrophy no longer present ST (T wave) deviation no longer present Electronically Signed On 03-31-2024 09:01:45 UTILITY APPRAISER by Dennis Jacobs M.D. [id number]
--- NOTE | 2024-03-30 14:42 | XR_ITS ---
WS: [id number] Portable AP upright chest, 03/30/2024 Clinical Data: sob Comparison: Portable chest, 11/30/2021 Findings: No nodules, masses or effusions are seen. The heart is slightly enlarged. The pulmonary vas cularity is not increased. No pneumonia or pneumothorax is seen. The aortic arch and descending thora cic aorta show calcification and tortuosity. There is an old right third rib fracture and old fractur e of the distal third of the right clavicle. XR/XR chest 1V portable [id number] Impression: Atherosclerosis and cardiomegaly.
[2024-03-30 14:45] LABS: Blood Urea Nitrogen 101 mg/dL (8-23)
[2024-03-30 15:30] VITALS: BP 142/51; PULSE 65; RESP 18; O2SAT 94
[2024-03-30] MEDS: sodium chloride 0.9% 500 ML 999 ML IV (15:41)
[2024-03-30 16:19] VITALS: BP 137/58; PULSE 63; O2SAT 93
== END 2024-03-30 16:20 | disposition home or self-care (01) ==
PROVIDERS: Emergency Provider Emergency Medicine; PCP Family Medicine
DX: I12.9 Hypertensive chronic kidney disease with stage 1 through stage 4 chronic kidney disease, or unspecified chronic kidney disease (principal); N18.30 Chronic kidney disease, stage 3 unspecified; E78.5 Hyperlipidemia, unspecified; C67.9 Malignant neoplasm of bladder, unspecified; Z87.891 Personal history of nicotine dependence
CPT/HCPCS: 71045; 80053; 85025; 93005; 96360; 99285; J7040

== ENCOUNTER 2024-04-03 12:08 | Outpatient (CLI) | payer MEDICARE, SELFPAY | END 2024-04-03 12:09 | disposition home or self-care (01) | LOC: LAB 12:12 | PROVIDERS: PCP Family Medicine; Visit Provider Internal Medicine Cardiovascular Disease | DX: I71.43 Infrarenal abdominal aortic aneurysm, without rupture (principal); I13.0 Hypertensive heart and chronic kidney disease with heart failure and stage 1 through stage 4 chronic kidney disease, or unspecified chronic kidney disease; I50.22 Chronic systolic (congestive) heart failure; N18.30 Chronic kidney disease, stage 3 unspecified; E78.5 Hyperlipidemia, unspecified | CPT/HCPCS: 36415; 80069; 82044; 82570; 83880; 84156; 99214 ==

== ENCOUNTER 2024-04-06 15:10 | Outpatient (CLI) | payer MEDICARE, SELFPAY ==
[2024-04-06 15:52] LABS: Albumin Level 3.9 g/dL (3.5-5.2); Anion Gap 17.1 (5-19); Blood Urea Nitrogen 48 mg/dL (8-23); Calcium 9.1 mg/dL (8.5-10.5); Carbon Dioxide 22 mmol/L (22-29); Chloride 108 mmol/L (98-107); Glucose 124 mg/dL (65-115); Phosphorus 3.6 mg/dL (2.5-4.5); Potassium 5.1 mmol/L (3.5-5.1); Sodium 142 mmol/L (136-145)
== END 2024-04-06 15:11 | disposition home or self-care (01) ==
LOC: LAB 15:17
PROVIDERS: PCP Family Medicine; Visit Provider Registered Nurse
DX: N18.32 Chronic kidney disease, stage 3b (principal)
CPT/HCPCS: 80069

== ENCOUNTER 2024-04-21 06:04 | Outpatient (CLI) | payer MEDICARE, SELFPAY ==
--- NOTE | 2024-04-21 06:15 | USCV_ITS ---
Elizabet Emanuel Age: 73 Gender: M : 1950 Exam Date: 04/21/2024 06:23 Ordering Phys: Idalia Hunt NP Technologist: Luis Manuel Jones Exam Location: [facility] [place] Indication: lower extremity venous BP: 142 / 64 HR: 65 Rhythm: Sinus Technical Quality: Adequate MEASUREMENTS (Male / Female) Normal Values 2D ECHO LV Diastolic Diameter PLAX 4.9 cm 4.2 - 5.9 / 3.9 - 5.3 cm IVS Diastolic Thickness 1.4 cm 0.6 - 1.0 / 0.6 - 0.9 cm IVS Systolic Thickness 1.9 cm LVPW Diastolic Thickness 2.0 cm 0.6 - 1.0 / 0.6 - 0.9 cm LVPW Systolic Thickness 2.6 cm LVOT Diameter 2.2 cm LV Ejection Fraction 2D Teich 65.4 % LV Ejection Fraction MOD 4C 66.4 % LV Ejection Fraction MOD 2C 57.8 % LV Ejection Fraction 2C AL 58.2 % LA Diameter 4.4 cm RA Systolic Volume 4C AL 36.4 ml RA Systolic Volume 4C MOD 38.2 ml LA Sys Volume AL 39.7 cm cubed LA Sys Volume Index AL 16.7 cm cubed/m squared Aorta at Sinotubular Diameter 2.7 cm IVC Diameter 1.8 cm M-MODE LA Ao Ratio MM 1.5 AV Cusp Separation MM 1.4 cm DOPPLER AV Peak Velocity 315.0 cm/s LVOT Peak Velocity 89.0 cm/s AV Area Cont Eq vti 1.4 cm squared AV Area Cont Eq pk 1.0 cm squared MV Peak Velocity 99.0 cm/s MV Area PHT 4.7 cm squared Mitral E to A Ratio 0.9 TR Peak Velocity 403.0 cm/s TR Peak Gradient 65.0 mmHg TR Mean Velocity 284.0 cm/s TR Mean Gradient 36.9 mmHg TR Velocity Time Integral 117.3 cm PV Peak Velocity 95.0 cm/s RV Ejection Time 0.3 s FINDINGS Left Ventricle Normal left ventricular size, systolic function and wall thickness, with no regional wall motion abnormalities. Left ventricular ejection fraction is estimated at 60 %. Grade I/IV diastolic dysfunction (abnormal relaxation filling pattern), normal to mildly elevated filling pressures. Right Ventricle The right ventricle is normal in size and function. Right Atrium The right atrium is normal in size. Left Atrium The left atrium is normal in size. Mitral Valve Mildly thickened mitral valve. No mitral valve stenosis. Moderate mitral valve regurgitation. Aortic Valve Severe aortic valve calcification. Moderate aortic valve stenosis, mean gradient 23.3 mmHg, LUCILLE 1.4 cm squared. Moderate aortic valve regurgitation. Tricuspid Valve Structurally normal tricuspid valve without significant stenosis or regurgitation. Pulmonary artery systolic pressure is normal. Pulmonic Valve Structurally normal pulmonic valve without significant stenosis. There is no pulmonic regurgitation. Pericardium Normal pericardium without effusion. Aorta Normal ascending aorta dimension. IVC The inferior vena cava appears normal. CONCLUSIONS Normal left ventricular size, systolic function and wall thickness, with no regional wall motion abnormalities. Left ventricular ejection fraction is estimated at 60 %. Grade I/IV diastolic dysfunction (abnormal relaxation filling pattern), normal to mildly elevated filling pressures. Severe aortic valve calcification. Moderate aortic valve stenosis, mean gradient 23.3 mmHg, LUCILLE 1.4 cm squared. Moderate aortic valve regurgitation. Structurally normal tricuspid valve without significant stenosis or regurgitation. Pulmonary artery systolic pressure is normal. There is no pericardial effusion. Right atrial pressure is around 5 mm of mercury. Deann Kong MD (Electronically Signed) Final Date: 21 April 2024 17:37 S
--- NOTE | 2024-04-21 09:30 | USR_ITS ---
PROCEDURE INFORMATION: Exam: US Duplex Lower Extremity Veins, Bilateral Exam date and time: 04/21/2024 6:46 AM Age: 73 years old Clinical indication: Edema, localized; Lower extremity, bilateral; Additional info: Lower extremity swelling TECHNIQUE: Imaging protocol: Real-time duplex ultrasound of the bilateral extremities with 2-D gaviria scale, color Doppler flow and spectral waveform analysis including responses to compression and other maneuvers (when performed) with image documentation. Complete exam focused on the lower extremity veins. COMPARISON: No relevant prior studies available. FINDINGS: Right deep veins: Unremarkable. The common femoral, femoral, proximal profunda femoral and popliteal veins are patent without thrombus. Normal Doppler waveforms. Normal compressibility and/or augmentation response. Left deep veins: Unremarkable. The common femoral, femoral, proximal profunda femoral and popliteal veins are patent without thrombus. Normal Doppler waveforms. Normal compressibility and/or augmentation response. Superficial veins: Greater saphenous veins at the saphenofemoral junctions are patent bilaterally without thrombus. Soft tissues: Unremarkable. [id number] IMPRESSION: No evidence of deep vein thrombosis.
== END 2024-04-21 06:05 | disposition home or self-care (01) ==
PROVIDERS: PCP Family Medicine; Visit Provider Nurse Practitioner Family
DX: I50.9 Heart failure, unspecified (principal); R93.1 Abnormal findings on diagnostic imaging of heart and coronary circulation; I34.0 Nonrheumatic mitral (valve) insufficiency; I35.8 Other nonrheumatic aortic valve disorders; I35.0 Nonrheumatic aortic (valve) stenosis; I35.1 Nonrheumatic aortic (valve) insufficiency
CPT/HCPCS: 93306; 93970

== ENCOUNTER 2024-04-24 10:04 | Outpatient (CLI) | payer MEDICARE, SELFPAY ==
[2024-04-24 11:13] LABS: Calcium 8.9 mg/dL (8.5-10.5)
[2024-04-24 11:14] LABS: Anion Gap 18.2 (5-19); Blood Urea Nitrogen 42 mg/dL (8-23); Calcium 8.9 mg/dL (8.5-10.5); Carbon Dioxide 20 mmol/L (22-29); Chloride 108 mmol/L (98-107); Glucose 93 mg/dL (65-115); Magnesium 2.1 mg/dL (1.7-2.3); Osmolality Calculated 302 mOsm/kg (285-295); Potassium 5.2 mmol/L (3.5-5.1); Sodium 141 mmol/L (136-145)
[2024-04-24 11:17] LABS: Parathyroid Hormone 126.5 pg/mL (15-65)
[2024-04-24 11:20] LABS: Creatinine Urine, Random 60 mg/dL (39-259)
[2024-04-24 11:27] LABS: 25 Hydroxy Vitamin D 34 ng/mL (30-100)
[2024-04-24 11:32] LABS: Microalbum Creatinine Ratio Ur 2767 mg/dL (0-20); Microalbumin Random Urine 166 ug/dL (0-20)
== END 2024-04-24 10:05 | disposition home or self-care (01) ==
LOC: LAB 10:13
PROVIDERS: PCP Family Medicine; Visit Provider Registered Nurse
DX: N26.9 Renal sclerosis, unspecified (principal); E55.9 Vitamin D deficiency, unspecified; N18.32 Chronic kidney disease, stage 3b
CPT/HCPCS: 36415; 80048; 80158; 82044; 82306; 82310; 83735; 83970

== ENCOUNTER 2024-05-17 14:03 | Outpatient (CLI) | payer MEDICARE, SELFPAY ==
[2024-05-17 14:49] LABS: Creatinine Urine, Random 85 mg/dL (39-259)
[2024-05-17 14:51] LABS: Albumin Level 3.9 g/dL (3.5-5.2); Blood Urea Nitrogen 37 mg/dL (8-23); Calcium 8.6 mg/dL (8.5-10.5); Carbon Dioxide 19 mmol/L (22-29); Chloride 110 mmol/L (98-107); Glucose 94 mg/dL (65-115); Phosphorus 3.4 mg/dL (2.5-4.5); Sodium 140 mmol/L (136-145)
[2024-05-17 14:52] LABS: Anion Gap 16.1 (5-19); Potassium 5.1 mmol/L (3.5-5.1)
[2024-05-17 15:01] LABS: Microalbum Creatinine Ratio Ur 3494 mg/dL (0-20); Microalbumin Random Urine 297 ug/dL (0-20)
== END 2024-05-17 14:04 | disposition home or self-care (01) ==
PROVIDERS: PCP Family Medicine; Visit Provider Registered Nurse
DX: N18.32 Chronic kidney disease, stage 3b (principal)
CPT/HCPCS: 36415; 80069; 82044

== ENCOUNTER → 2024-07-03 10:22 | Outpatient (BNVA) | payer MEDICARE, SELFPAY | PROVIDERS: PCP Family Medicine; Visit Provider Family Medicine | DX: I50.22 Chronic systolic (congestive) heart failure (principal) | CPT/HCPCS: 80048; 85025 ==

== ENCOUNTER 2024-07-10 11:48 | Outpatient (CLI) | payer MEDICARE, SELFPAY | END 2024-07-10 11:49 | disposition home or self-care (01) | LOC: LAB 11:51 | PROVIDERS: PCP Family Medicine; Visit Provider Internal Medicine Interventional Cardiology | DX: R97.20 Elevated prostate specific antigen [PSA] (principal) | CPT/HCPCS: 36415; 80048; 84153 ==

== ENCOUNTER 2024-07-13 09:43 | Outpatient (CLI) | payer MEDICARE, SELFPAY | END 2024-07-13 09:44 | disposition home or self-care (01) | PROVIDERS: PCP Family Medicine; Visit Provider Internal Medicine Interventional Cardiology | DX: Z12.5 Encounter for screening for malignant neoplasm of prostate (principal); R97.20 Elevated prostate specific antigen [PSA] | CPT/HCPCS: 36415; 84153 ==

== ENCOUNTER → 2024-07-19 10:56 | Outpatient (BNVA) | payer MEDICARE, SELFPAY | PROVIDERS: PCP Family Medicine; Visit Provider Family Medicine | DX: N18.30 Chronic kidney disease, stage 3 unspecified (principal); N18.9 Chronic kidney disease, unspecified; R79.89 Other specified abnormal findings of blood chemistry | CPT/HCPCS: 80069; 82306; 82310; 82570; 83970; 84156; 85025; 88305 ==

== ENCOUNTER → 2024-08-17 08:03 | Outpatient (BNVA) | payer MEDICARE, SELFPAY | PROVIDERS: PCP Family Medicine; Visit Provider Dermatology | DX: L82.1 Other seborrheic keratosis (principal); L73.8 Other specified follicular disorders; L57.8 Other skin changes due to chronic exposure to nonionizing radiation; C44.319 Basal cell carcinoma of skin of other parts of face | CPT/HCPCS: 13132; 17311; 99203 ==

== ENCOUNTER → 2024-09-06 14:09 | Outpatient (BNVA) | payer MEDICARE, SELFPAY | PROVIDERS: PCP Family Medicine; Visit Provider Internal Medicine Cardiovascular Disease | DX: I71.40 Abdominal aortic aneurysm, without rupture, unspecified (principal); I10 Essential (primary) hypertension; E78.5 Hyperlipidemia, unspecified; I87.2 Venous insufficiency (chronic) (peripheral); I35.0 Nonrheumatic aortic (valve) stenosis | CPT/HCPCS: 99214 ==

== ENCOUNTER → 2024-09-11 14:31 | Outpatient (BNVA) | payer MEDICARE, SELFPAY | PROVIDERS: PCP Family Medicine; Visit Provider Family Medicine | DX: I10 Essential (primary) hypertension (principal); I50.22 Chronic systolic (congestive) heart failure | CPT/HCPCS: 80048 ==

== ENCOUNTER → 2024-09-18 13:10 | Outpatient (BNVA) | payer MEDICARE, SELFPAY | PROVIDERS: PCP Family Medicine; Visit Provider Family Medicine | DX: I50.22 Chronic systolic (congestive) heart failure (principal) | CPT/HCPCS: 80048 ==

== ENCOUNTER → 2024-09-25 16:33 | Outpatient (BNVA) | payer MEDICARE, SELFPAY | PROVIDERS: PCP Family Medicine; Visit Provider Family Medicine | DX: I50.22 Chronic systolic (congestive) heart failure (principal) | CPT/HCPCS: 80048 ==

== ENCOUNTER 2024-09-26 08:55 | Outpatient (CLI) | payer MEDICARE, SELFPAY ==
--- NOTE | 2024-09-26 09:05 | MR_ITS ---
WS: [id number] MRI HEAD WITHOUT CONTRAST TECHNIQUE: Sagittal T1, T2 axial, T2 axial FLAIR, axial and coronal T1 images, axial susceptibility weighted imaging, axial diffusion weighted images, and coronal T2 images were obtained. CLINICAL INFORMATION: UNSPEIFIED DEMENTIA,OTHER SYMPTOMS INVOLVING COGNITIVE FUNCT COMPARISON: None. FINDINGS: No evidence of restricted diffusion to suggest acute ischemia. Moderate small vessel changes. Moderate parenchymal volume loss. Normal posterior fossa. Normal vascular flow voids at the skull base. No extra-axial fluid collections. Mild mucosal thickening in the paranasal sinuses. Mastoid air cells are well aerated. Normal posterior nasopharynx. No hemosiderin on the susceptibly weighted images. Normal optic chiasm and pituitary infundibulum. Mild to moderate symmetric atrophy temporal lobes and hippocampal formations. MR/MR head wo con* [id number] IMPRESSION: 1. No evidence of restricted diffusion to suggest acute ischemia. 2. Moderate small vessel changes with moderate parenchymal volume loss. Volume loss worse in the anterior temporal and parietal lobes 3. Mild to moderate symmetric atrophy temporal lobes hippocampal formations. 4. No hemosiderin on the susceptibly weighted images.
== END 2024-09-26 08:56 | disposition home or self-care (01) ==
LOC: RAD 08:56
PROVIDERS: PCP Family Medicine; Visit Provider Internal Medicine
DX: G31.89 Other specified degenerative diseases of nervous system (principal); R41.89 Other symptoms and signs involving cognitive functions and awareness
CPT/HCPCS: 70551

== ENCOUNTER 2024-10-05 16:53 | Outpatient (CLI) | payer MEDICARE, SELFPAY ==
--- NOTE | 2024-10-05 17:00 | CT_ITS ---
WS: [id number] CT ABDOMEN PELVIS TECHNIQUE: Noncontrast CT of the abdomen and pelvis with coronal and sagittal reformatted images. CLINICAL INFORMATION: AAA COMPARISON: None. DLP: 767.[address] scans at [facility] use at least one of these dose optimization techniques: automated exposure control; mA and/or kV adjustment per patient size (includes targeted exams where dose is matched to clinical indication); or iterative reconstruction. FINDINGS: Infrarenal abdominal aortic aneurysm measuring 5.4 x 4.7 x 4.9 cm AP by transverse by craniocaudal. This is stable compared to previous Lung bases are well aerated. Normal noncontrast liver. Tiny RIGHT hepatic cyst. Normal gallbladder. Spleen. Small splenule. Small esophageal hernia. Trace pericardial thickening or fluid. Normal noncontrast pancreas. Adrenal glands are normal. No hydronephrosis in either kidney. LEFT renal cyst measuring 2.1 cm. A few small indeterminate lesions RIGHT kidney too small to characterize. Increasing RIGHT lower pole renal lesion measuring 2.1 cm with increased attenuation. This may present a hemorrhagic or proteinaceous cyst but indeterminate and recommend further evaluation with ultrasound. Tiny fat-containing umbilical hernia. Enlarged prostate measuring 4.7 cm. Sigmoid diverticulosis. Normal appendix. Bony ankylosis RIGHT greater than LEFT SI joints. CT/CT abdomen pelvis wo con [id number] IMPRESSION: 1. Infrarenal abdominal aortic aneurysm measuring 5.4 x 4.7 x 4.9 cm AP by t ransverse by craniocaudal. This is unchanged since 2023 2. Increasing RIGHT lower pole renal lesion with increased attenuation measuri ng 2.1 cm. This may represent a hemorrhagic or proteinaceous cystic lesion but indeterminate and recommend further evaluation with ultrasound. Neoplasm not ex cluded. Previously this measured 1.6 cm 3. Sigmoid diverticulosis. 4. Prostate enlargement. Recommend correlation PSA. 5. No other acute findings.
== END 2024-10-05 16:54 | disposition home or self-care (01) ==
LOC: RAD 16:53
PROVIDERS: PCP Family Medicine; Visit Provider Internal Medicine Cardiovascular Disease
DX: I71.43 Infrarenal abdominal aortic aneurysm, without rupture (principal); R93.421 Abnormal radiologic findings on diagnostic imaging of right kidney; K57.90 Diverticulosis of intestine, part unspecified, without perforation or abscess without bleeding; N40.0 Benign prostatic hyperplasia without lower urinary tract symptoms
CPT/HCPCS: 74176

== ENCOUNTER → 2024-10-10 08:07 | Outpatient (BNVA) | payer MEDICARE, SELFPAY | PROVIDERS: PCP Family Medicine; Visit Provider Family Medicine | DX: I10 Essential (primary) hypertension (principal); I50.22 Chronic systolic (congestive) heart failure; N18.30 Chronic kidney disease, stage 3 unspecified | CPT/HCPCS: 80048; 82088; 82533; 82627; 84244 ==

== ENCOUNTER 2024-10-17 14:54 | Inpatient (IN) | payer MEDICARE, SELFPAY ==
[2024-10-17 14:59] VITALS: BP 141/69; PULSE 65; RESP 18; TEMP 36.6; O2SAT 93
--- NOTE | 2024-10-17 15:08 | ECG_ITS ---
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 Measurements Intervals [place] Rate: 65 P: 28 TX: 152 QRS: 27 QRSD: 126 T: 111 QT: 472 QTc: 491 Interpretive Statements SINUS RHYTHM LEFT VENTRICULAR HYPERTROPHY AND ST-T CHANGE [VOLTAGE CRITERIA PLUS ST/T ABNORMALITY] POSSIBLE ISCHEMIC ST - T CHANGES Compared to ECG 03/30/2024 14:46:08 Left ventricular hypertrophy now present ST (T wave) deviation now present Prolonged QT interval no longer present Electronically Signed On 10-18-2024 21:39:05 CDT by Nikhil Mar M.D. [email or web address] [id number]
--- NOTE | 2024-10-17 15:19 | XRR_ITS ---
PROCEDURE INFORMATION: Exam: XR Chest Exam date and time: 10/17/2024 3:31 PM Age: 73 years old Clinical indication: Other: Weakness TECHNIQUE: Imaging protocol: Radiologic exam of the chest. Views: 1 view. COMPARISON: CR XR chest 1V portable [id number] 03/30/2024 2:45 PM FINDINGS: Lungs: Unremarkable. No consolidation. Pleural spaces: Unremarkable. No pleural effusion. No pneumothorax. Heart/Mediastinum: Unremarkable. No cardiomegaly. Vasculature: Atherosclerotic calcifications of the aortic arch. Bones/joints: Unremarkable. XR/XR chest 1V portable [id number] IMPRESSION: No acute finding.
[2024-10-17 15:27] LABS: Hematocrit 38.8 % (37-53); Hemoglobin 12.90 g/dL (11.27-16.99); Mean Corpuscular HGB Conc 33.2 g/dL (30-55); Mean Corpuscular Hemoglobin 28.7 pg (27-33); Mean Corpuscular Volume 86.2 fl (82-101); Nucleated Red Blood Cells % 0 %; Platelet Count 310 10^3/cmm (157-399); Red Blood Count 4.50 10^6/uL (3.85-5.65); White Blood Count 14.95 10^3/uL (3.29-11.43)
[2024-10-17 15:36] VITALS: BP 148/62; PULSE 63; O2SAT 93
--- NOTE | 2024-10-17 15:36 | W.ED.RECABL ---
HPI - Recheck/Abnormal Lab/Rx General: Chief Complaint: Recheck/Abnormal Lab/Rx Stated Complaint: adnormal labs Time Seen by Provider: 10/17/24 15:04 History of Present Illness: Chief complaint generalized weakness and fatigue and elevated creatinine and low potassium. History is obtained from patient and the . Patient states that for the last few days she has just been very fatigued weak and staying in bed. No chest pain or chest discomfort. He had recent increase in his diuretics. Related Data Home Medications ?Medication ?Instructions ?Recorded ?Confirmed metoprolol tartrate 100 mg tablet 100 mg PO BID 11/12/22 10/17/24 empagliflozin 10 mg tablet 10 mg PO DAILY 02/21/24 10/17/24 (Jardiance) finasteride 5 mg tablet 5 mg PO DAILY 02/21/24 10/17/24 ascorbic acid (vitamin C) 500 mg 500 mg PO DAILY 09/06/24 10/17/24 capsule aspirin 81 mg tablet 81 mg PO DAILY 09/06/24 10/17/24 cholecalciferol (vitamin D3) 25 25 mcg PO DAILY 09/06/24 10/17/24 mcg (1,000 unit) capsule lactobacillus combination no.9 4 4,000 mmu cells PO DAILY 09/06/24 10/17/24 billion cell capsule (Adult 50 Plus Probiotic) sodium bicarbonate 650 mg tablet 650 mg PO BID 09/06/24 10/17/24 Previous Rx's ?Medication ?Instructions ?Recorded cyclosporine 100 mg capsule 100 mg PO BID #60 caps 11/11/21 nitroglycerin 0.4 mg sublingual 0.4 mg sublingual Q5M PRN chest 08/26/23 tablet pain #20 tabs allopurinol 300 mg tablet See Rx Instructions .Route 05/24/24 .COMPLEX #90 tabs amlodipine 10 mg tablet See Rx Instructions .Route 07/14/24 .COMPLEX #30 tabs potassium chloride 20 mEq See Rx Instructions .Route 07/14/24 tablet,extended release .COMPLEX #180 tabs levothyroxine 175 mcg tablet 175 mcg PO DAILY #90 tabs 07/26/24 furosemide 40 mg tablet 40 mg PO BID #120 tabs 08/28/24 rosuvastatin 20 mg tablet 20 mg PO DAILY #90 tabs 09/06/24 hydralazine 100 mg tablet See Rx Instructions .Route 10/04/24 .COMPLEX #270 tabs metolazone 2.5 mg tablet See Rx Instructions .Route 10/16/24 .COMPLEX #90 tabs Allergies Allergy/AdvReac Type Severity Reaction Status Date / Time valsartan Allergy Intermediate angioedema Verified 10/17/24 15:03 [facility] PFSH: Medical History (Updated 10/17/24 @ 18:15 by Anahi Waterman MD) Sleep apnea Dyslipidemia Abdominal aortic aneurysm (AAA) Bladder cancer Aortic insufficiency with aortic stenosis Hypertension Gout Chronic kidney disease, stage III (moderate) Surgical History No pertinent past surgical history Social History Smoking and tobacco/nicotine status: never used tobacco/nicotine Substance/Drug Use: never Physical Exam Narrative: EXAM NARRATIVE: Patient is laying in the bed. He appears weak. He is alert and oriented when I speak to him. He sits up on his own. His neck is supple. No JVD. Normal conjunctiva. Pupils equal and reactive. Heart regular rhythm with murmur. Lung sounds are clear. Mild edema in both legs. No drift in his arms or legs. No facial droop. Abdomen soft nontender. No tenderness over his back. Skin is warm and no rash in exposed areas. Extremities appear warm well-perfused. Speech is clear. No ataxia. Shows ability to reason. Course Vital Signs: Vital signs: Vital Signs Temperature 98.5 F 10/17/24 19:29 Pulse Rate 67 10/17/24 19:29 Respiratory Rate 25 H 10/17/24 19:29 Blood Pressure 157/66 10/17/24 19:29 Pulse Oximetry 90 10/17/24 19:29 Oxygen Delivery Me thod Room Air 10/17/24 19:29 MDM - Recheck/Abnormal Lab/Rx Medical Decision Making Patient presents along with his who provides majority of the history. The patient tells me he feels fine. The states he does not feel fine and that he has been very weak and fatigued and sleeping much of the day for the last several days. No fever. He denies any cough runny nose or congestion or sore throat. Denies headache. Denies fall or injury. Denies chest pain chest discomfort shortness of breath or abdominal pain vomiting or diarrhea. Denies black or bloody stools. Denies new leg pain or swelling and states his legs are little swollen but baseline for him. Patient nonfocal on exam. He does appear fatigued and somewhat weak. His states that his doctor had changed his metolazone from 3 times a week to every day and had placed him on furosemide. They had a follow-up appointment today and his troponin was elevated his potassium was low and his creatinine was elevated so he was told to come here to the hospital to be admitted. Differential very broad including infectious process, acute renal failure, dehydration, extremely broad differential. Patient does have a history of AAA according to the . He denies having any abdominal pain pain into his back or chest. Acute [place] not suggested by exam and history. He reportedly had elevated troponin however this may be elevated with acute renal failure as well. He denies any shortness of breath or pleurisy or new leg pain or swelling to suggest PE. EKG ordered which shows to my interpretation sinus rhythm with a rate of 65 bpm and inverted T waves and ST depression. Troponin CBC CMP ordered and urinalysis and chest x-ray. I did order 500 cc normal saline bolus after informed discussion with the and patient. Patient does have a history of prior [place] and likely congestive heart failure based on his medications. Differential very broad. White blood cell count is elevated though no clear source for infection by history. Creatinine elevated. Potassium is low. I ordered IV and oral potassium repletion. Patient EKG is abnormal which may be related to hypokalemia versus ischemia. The troponin is elevated. He denies any chest pain or chest discomfort or shortness of breath. I did give the patient aspirin 324 mg p.o. I ordered a bladder scan and a magnesium level. I have paged hospitalist for admission. Lab Data 10/17/24 15:19 10/17/24 15:19 Radiology Impressions Chest X-Ray 10/17/24 15:19 IMPRESSION: No acute finding. Laboratory Results WBC 14.95 10^3/uL (3.29-11.43) H 10/17/24 15:19 RBC 4.50 10^6/uL (3.85-5.65) 10/17/24 15:19 Hgb 12.90 g/dL (11.27-16.99) 10/17/24 15:19 Hct 38.8 % (37-53) 10/17/24 15:19 MCV 86.2 fl (82-101) 10/17/24 15:19 MCH 28.7 pg (27-33) 10/17/24 15:19 MCHC 33.2 g/dL (30-55) 10/17/24 15:19 RDW 14.5 % (12.1-15.1) 10/17/24 15:19 Plt Count 310 10^3/cmm (157-399) 10/17/24 15:19 MPV 11.2 fL (7.4-10.4) H 10/17/24 15:19 Neut % (Auto) 76.7 % 10/17/24 15:19 Lymph % (Auto) 13.9 % 10/17/24 15:19 [place] % (Auto) 7.9 % 10/17/24 15:19 Eos % (Auto) 0.3 % 10/17/24 15:19 Baso % (Auto) 0.7 % 10/17/24 15:19 Neut # (Auto) 11.48 10^3/uL (1.8-7.7) H 10/17/24 15:19 Lymph # (Auto) 2.1 10^3/uL (0.8-4.8) 10/17/24 15:19 [place] # (Auto) 1.2 10^3/uL (0.2-0.9) H 10/17/24 15:19 Eos # (Auto) 0.0 10^3/uL (0.0-0.8) 10/17/24 15:19 Baso # (Auto) 0.1 10^3/uL (0.0-0.1) 10/17/24 15:19 Nucleated RBC % (auto) 0 % 10/17/24 15:19 Nucleated RBCs # 0.0 /100WBC 10/17/24 15:19 PT 13.10 SECONDS (12.1-14.9) 10/17/24 15:19 INR 0.93 (0.8-1.2) 10/17/24 15:19 APTT 37.7 SECONDS (23.9-36.7) H 10/17/24 15:19 Sodium 136 mmol/L (136-145) 10/17/24 15:19 Potassium 2.6 mmol/L (3.5-5.1) L* 10/17/24 15:19 Chloride 87 mmol/L (98-107) L 10/17/24 15:19 Carbon Dioxide 30 mmol/L (22-29) H 10/17/24 15:19 Anion Gap 21.6 (5-19) H 10/17/24 15:19 BUN 94 mg/dL (8-23) H* 10/17/24 15:19 Creatinine 5.0 mg/dL (0.7-1.2) H 10/17/24 15:19 GFR Calculation Not Reportable 10/17/24 15:19 Glucose 121 mg/dL (65-115) H 10/17/24 15:19 Calculated Osmolality 312 mOsm/kg (285-295) H 10/17/24 15:19 Calcium 8.5 mg/dL (8.5-10.5) 10/17/24 15:19 Magnesium 2.1 mg/dL (1.7-2.3) 10/17/24 15:19 Total Bilirubin 2.0 mg/dL (0.15-1.2) H 10/17/24 15:19 AST 14 U/L (0-40) 10/17/24 15:19 ALT 7 U/L (0-41) 10/17/24 15:19 Alkaline Phosphatase 95 U/L (40-130) 10/17/24 15:19 Troponin T Baseline 91 ng/L (0-15) H 10/17/24 15:19 Troponin T 120 Minute 86.62 ng/L (0-15) H 10/17/24 17:43 Delta Troponin T -4.38 ABS# (0-10) L 10/17/24 17:43 NT-Pro-B Natriuret Pep 1066 pg/mL (0-450) H 10/17/24 15:19 Total Protein 7.2 g/dL (6.6-8.7) 10/17/24 15:19 Albumin 4.3 g/dL (3.5-5.2) 10/17/24 15:19 Globulin 2.9 g/dL (1.3-4.6) 10/17/24 15:19 Urine Color Yellow (Yellow) 10/17/24 16:33 Urine Appearance Clear (CLEAR) 10/17/24 16:33 Urine pH 6.5 (5-7) 10/17/24 16:33 Ur Specific [place] 1.009 (1.005-1.030) 10/17/24 16:33 Urine Protein 3+ (Negative) A 10/17/24 16:33 Urine Glucose (UA) Trace (Normal) H 10/17/24 16:33 Urine Ketones Negative (Negative) 10/17/24 16:33 Urine Blood Negative (Negative) 10/17/24 16:33 Urine Nitrate Negative (Negative) 10/17/24 16:33 Urine Bilirubin Negative (Negative) 10/17/24 16:33 Urine Urobilinogen 1.0 mg/dL (Negative) 10/17/24 16:33 Ur Leukocyte Esterase Negative (Negative) 10/17/24 16:33 Urine RBC 0-2 /hpf (0-2) 10/17/24 16:33 Urine WBC 0-5 /hpf (0-5) 10/17/24 16:33 Ur Squamous Epith Cells 0-5 /hpf (0-5) 10/17/24 16:33 Amorphous Sediment Not Reportable 10/17/24 16:33 Urine Bacteria None seen /hpf (NONE) 10/17/24 16:33 Hyaline Casts 3.71 /lpf 10/17/24 16:33 All radiology interpretation(s) finalized by discharge Discharge Plan Discharge Patient Disposition: Admitted As Inpatient Admit Provider: Anahi Waterman Clinical Impression: CHF (congestive heart failure), Acute on chronic renal insufficiency, Acute hypokalemia Condition: Stable Coding Level of Care Code ED Department Helper for Tania Alcaraz
[2024-10-17 15:45] LABS: INR 0.93 (0.8-1.2); Prothrombin Time 13.10 SECONDS (12.1-14.9)
[2024-10-17 15:46] LABS: Partial Thromboplastin Time 37.7 SECONDS (23.9-36.7); Troponin(5th) Baseline 91 ng/L (0-15)
[2024-10-17 15:55] LABS: Alanine Aminotransferase 7 U/L (0-41); Albumin Level 4.3 g/dL (3.5-5.2); Alkaline Phosphatase 95 U/L (40-130); Aspartate Amino Transferase 14 U/L (0-40); Calcium 8.5 mg/dL (8.5-10.5); Carbon Dioxide 30 mmol/L (22-29); Chloride 87 mmol/L (98-107); Creatinine Clr Calc Pharmacy 14.6498; Globulin 2.9 g/dL (1.3-4.6); Glucose 121 mg/dL (65-115); Magnesium 2.1 mg/dL (1.7-2.3); NT Pro B Type Natriuretic Pept 1066 pg/mL (0-450); Osmolality Calculated 312 mOsm/kg (285-295); Sodium 136 mmol/L (136-145); Total Protein 7.2 g/dL (6.6-8.7)
[2024-10-17 15:57] LABS: Anion Gap 21.6 (5-19)
[2024-10-17 15:58] LABS: Blood Urea Nitrogen 94 mg/dL (8-23); Potassium 2.6 mmol/L (3.5-5.1)
[2024-10-17 16:51] VITALS: BP 152/66; PULSE 61; O2SAT 92
[2024-10-17 17:03] LABS: Glucose Urine UA Trace (Normal); Nitrate Urine Negative (Negative); Specific Gravity, Urine 1.009 (1.005-1.030)
[2024-10-17 17:08] LABS: Add Urine Microscopic? YES
[2024-10-17] MEDS: lidocaine 1% 5 ML in potassium chloride premix 100 ML 52.5 ML IV (17:36)
--- NOTE | 2024-10-17 17:36 | PM.HP ---
Providers/Chief Complaint Admitting Physician: Dr. Anahi Mo--admitted patient at 5 PM 10/17/2021 5 Primary Care Provider: Kaleb Daniel MD Chief Complaint: adnormal labs History of Present Illness Emanuel Mcneal is a 73 year old male who looks younger than his stated age presenting to the emergency room under the referral of the primary care doctor who had done some lab work earlier today and it showed a creatinine of 4.8. Patient and the was notified and we advised to go to the emergency room for the patient's care Patient has history of chronic stage IV kidney and now presenting with acute on chronic renal failure. Patient baseline creatinine had gone anywhere from 2.7-3.5. Patient is on diuretics for chronic CHF and for some reason in the last few days his diuretics were increased the patient was taking more Lasix at home causing him to fall into acute on chronic renal failure and also having hypokalemia today at presentation with potassium of 2.6 Prior to his office visit today patient had been extremely weak with the subsequent lab work done he has shown that creatinine had gone up to above the baseline and in the emergency room patient creatinine had gone to 5 with a BUN of 94. Nephrology has been consulted patient is overly dry and had been given a liter of fluid in the emergency room and, hospitalist consulted to evaluate for admission I have seen and evaluated patient patient is already getting some potassium for a 40 mEq IV at 10 mEq/h. I have initiated normal saline at 30 cc/h a repeat of lab work be done to follow through with care. Patient PROBNP was only 1000. I have ordered echocardiogram we will continue monitoring of lab work and very gentle hydration not exceed 1 L at this time with nephrology consultation Review of Systems Narrative: Patient is ill and weak appearing. System review upon 10 organ review were significant for musculoskeletal weakness otherwise unremarkable Medications/Allergies Home Medications ?Medication ?Instructions ?Recorded ?Confirmed ?Last Taken ?Type cyclosporine 100 mg capsule 100 mg PO BID #60 caps 11/11/21 10/17/24 10/17/24 08:00 Rx metoprolol tartrate 100 mg tablet 100 mg PO BID 11/12/22 10/17/24 10/17/24 08:00 History nitroglycerin 0.4 mg sublingual 0.4 mg sublingual Q5M PRN chest 08/26/23 10/17/24 Unknown Rx tablet pain #20 tabs empagliflozin 10 mg tablet 10 mg PO DAILY 02/21/24 10/17/24 10/17/24 History (Jardiance) finasteride 5 mg tablet 5 mg PO DAILY 02/21/24 10/17/24 10/17/24 History allopurinol 300 mg tablet See Rx Instructions .Route 05/24/24 10/17/24 10/17/24 Rx .COMPLEX #90 tabs amlodipine 10 mg tablet See Rx Instructions .Route 07/14/24 10/17/24 Unknown Rx .COMPLEX #30 tabs potassium chloride 20 mEq See Rx Instructions .Route 07/14/24 10/17/24 10/17/24 08:00 Rx tablet,extended release .COMPLEX #180 tabs levothyroxine 175 mcg tablet 175 mcg PO DAILY #90 tabs 07/26/24 10/17/24 10/17/24 07:00 Rx furosemide 40 mg tablet 40 mg PO BID #120 tabs 08/28/24 10/17/24 10/17/24 07:00 Rx ascorbic acid (vitamin C) 500 mg 500 mg PO DAILY 09/06/24 10/17/24 10/17/24 History capsule aspirin 81 mg tablet 81 mg PO DAILY 09/06/24 10/17/24 10/17/24 History cholecalciferol (vitamin D3) 25 25 mcg PO DAILY 09/06/24 10/17/24 10/17/24 History mcg (1,000 unit) capsule lactobacillus combination no.9 4 4,000 mmu cells PO DAILY 09/06/24 10/17/24 10/16/24 History billion cell capsule (Adult 50 Plus Probiotic) rosuvastatin 20 mg tablet 20 mg PO DAILY #90 tabs 09/06/24 10/17/24 10/16/24 Rx sodium bicarbonate 650 mg tablet 650 mg PO BID 09/06/24 10/17/24 10/17/24 08:00 History hydralazine 100 mg tablet See Rx Instructions .Route 10/04/24 10/17/24 10/16/24 Rx .COMPLEX #270 tabs metolazone 2.5 mg tablet See Rx Instructions .Route 10/16/24 10/17/24 10/17/24 Rx .COMPLEX #90 tabs Allergies Allergy/AdvReac Type Severity Reaction Status Date / Time valsartan Allergy Intermediate angioedema Verified 10/17/24 15:03 PFSH Acute PFSH: Medical History (Updated 10/17/24 @ 18:15 by Anahi Waterman MD) Sleep apnea Dyslipidemia Abdominal aortic aneurysm (AAA) Bladder cancer Aortic insufficiency with aortic stenosis Hypertension Gout Chronic kidney disease, stage III (moderate) Surgical History No pertinent past surgical history Social History Smoking and tobacco/nicotine status: never used tobacco/nicotine Substance/Drug Use: never Vitals/I&O/Wt Last Vital Signs Temp 97.9 F 10/17/24 14:59 Pulse 61 10/17/24 16:51 Resp 18 10/17/24 14:59 BP 152/66 10/17/24 16:51 Pulse Ox 92 10/17/24 16:51 O2 Del Method Room Air 10/17/24 16:51 Weight last 48 hrs Weight 100.244 kg Physical Exam Narrative: General The patient is very weak appearing HEENT normocephalic atraumatic neck neck is supple cardiovascular heart rate is regular lungs are clear abdomen soft nontender nondistended unremarkable extremities intact, no edema has good pulses neurology no focality, patient is alert awake and oriented x 3 Data 10/17/24 15:19 10/17/24 15:19 A&P Assessment and plan 1. Acute hypokalemia: Hypokalemia was secondary to overly diuresis - Admit to stepdown unit - Placed on telemetry - EKG did not show any U wave - Hypokalemia being replaced at this time - Because of the level of creatinine at 5, will repeat lab studies after 40 mEq of IV potassium have been infused - Magnesium is normal at 2 - Will continue to optimize hypokalemia if the repeat is found to be low 2. Acute on chronic renal insufficiency: Patient with chronic stage IV kidney now with acute on chronic - Must hold all diuretics - Must hold all renal unfriendly medications - Patient had received a liter of IV bolus normal saline in the emergency room by the attending at the emergency room - I will initiate a liter at 500 cc/h x 1 L only - Will repeat lab studies an hour after the IV potassium had been completely infused 3. Nausea: Nausea-due to metabolic acidosis from acute on chronic renal failure - Correct metabolic derangement by replacing all electrolytes - Gently replacing some fluid and keeping the patient euvolemic - Continue with antiemetic 4. Dehydration: Very gentle hydration at 50 mL/h of normal saline times only 1 L - Recheck lab studies ordered 5. Hyperbilirubinemia: This is a history continue home medication Plan: GI and DVT prophylaxis in place PDMP PDMP Reviewed: Not Reviewed Attestations Medical Necessity Statement*: Patient with acute on chronic stage IV kidney failure with electrolyte imbalances reference hypokalemia at 2.6 remarkable dehydration with a BUN of 94 and a creatinine of 5 of baseline and hyperbilirubinemia of 2 from a baseline of 0.5 deserve to have at least 2 midnights for optimization of care Coding Level of Care Code 14709 Diagnoses Acute hypokalemia E87.6 Acute on chronic renal insufficiency N28.9; N18.9 Nausea R11.0 Dehydration E86.0 Hyperbilirubinemia E80.6 Time Spent (min) 70
[2024-10-17 18:05] VITALS: BP 132/66; PULSE 66; O2SAT 98
[2024-10-17 18:43] LABS: Troponin 5 2HR 86.62 ng/L (0-15)
[2024-10-17 18:44] LABS: Troponin 5 2HR Delta -4.38 ABS# (0-10)
[2024-10-17 19:29] VITALS: BP 157/66; PULSE 67; RESP 25; TEMP 36.9; O2SAT 90
[2024-10-17] MEDS: heparin 5,000 unit/mL INJ 1 mL 5000 UNIT SUBCUT (19:43)
--- NOTE | 2024-10-17 20:11 | US_ITS ---
WS: [id number] RENAL ULTRASOUND URINARY BLADDER ULTRASOUND HISTORY: taz COMPARISON: 09/22/2022 TECHNIQUE: 2-D and color Doppler imaging of the kidney submitted. Right kidney: 9.5 cm x 6.8 cm x 6.5 cm. Cortex: 1.7 cm Normal size kidney. Mild increased echogenicity. Cortical cyst lower pole 2.5 cm. No hydronephrosis. Left kidney: 11.7 cm x 4.9 cm x 5.3 cm. Cortex: 1.5 cm Normal size kidney with no hydronephrosis. Mild increased echogenicity. Multiple small cortical cysts. The largest measures 5.3 cm. Aorta: Normal. Urinary Bladder: Normal distention. Prevoid volume: 123 mL. Postvoid volume 3 mL. US/US renal BI* [id number] IMPRESSION: 1. No hydronephrosis. 2. Mild chronic medical renal disease. 3. Bilateral renal cysts. 4. No post void residual.
--- NOTE | 2024-10-17 20:11 | PM.CONSULT ---
Providers/Reason For Consult Consulting Physician/Specialty*: kommana/Nephrology Reason for Consult*: Acute on CKD Attending Physician: Anahi Waterman MD Primary Care Provider: Kaleb Daniel MD History of Present Illness History of Present Illness Emanuel Mcneal is a 73 year old male 1 patient is a 73-year-old male with past medical history significant for chronic kidney disease stage IV followed by nephrology as outpatient-[place] [facility] Dr. Segovia, history of bladder cancer, hypertension, dyslipidemia, obstructive sleep apnea, abdominal aortic aneurysm presented to the emergency department complaining of weakness, and PCP noted worsening renal function with a creatinine of 4.8. He was noted to have increased lower extremity edema recently and his diuretics doses were increased. In the last week patient complains of having poor appetite, decreased p.o. intake, increased fatigue. In the emergency department he was noted to have a creatinine of 5.0, potassium of 2.6. His recent creatinine was 3.0 about a week ago. Review of Systems Narrative: negative Medications/Allergies Home Medications ?Medication ?Instructions ?Recorded ?Confirmed ?Last Taken ?Type cyclosporine 100 mg capsule 100 mg PO BID #60 caps 11/11/21 10/17/24 10/17/24 08:00 Rx metoprolol tartrate 100 mg tablet 100 mg PO BID 11/12/22 10/17/24 10/17/24 08:00 History nitroglycerin 0.4 mg sublingual 0.4 mg sublingual Q5M PRN chest 08/26/23 10/17/24 Unknown Rx tablet pain #20 tabs empagliflozin 10 mg tablet 10 mg PO DAILY 02/21/24 10/17/24 10/17/24 History (Jardiance) finasteride 5 mg tablet 5 mg PO DAILY 02/21/24 10/17/24 10/17/24 History allopurinol 300 mg tablet See Rx Instructions .Route 05/24/24 10/17/24 10/17/24 Rx .COMPLEX #90 tabs amlodipine 10 mg tablet See Rx Instructions .Route 07/14/24 10/17/24 Unknown Rx .COMPLEX #30 tabs potassium chloride 20 mEq See Rx Instructions .Route 07/14/24 10/17/24 10/17/24 08:00 Rx tablet,extended release .COMPLEX #180 tabs levothyroxine 175 mcg tablet 175 mcg PO DAILY #90 tabs 05/21/25 08/12/25 08/12/25 07:00 Rx furosemide 40 mg tablet 40 mg PO BID #120 tabs 08/28/24 10/17/24 10/17/24 07:00 Rx ascorbic acid (vitamin C) 500 mg 500 mg PO DAILY 09/06/24 10/17/24 10/17/24 History capsule aspirin 81 mg tablet 81 mg PO DAILY 09/06/24 10/17/24 10/17/24 History cholecalciferol (vitamin D3) 25 25 mcg PO DAILY 09/06/24 10/17/24 10/17/24 History mcg (1,000 unit) capsule lactobacillus combination no.9 4 4,000 mmu cells PO DAILY 09/06/24 10/17/24 10/16/24 History billion cell capsule (Adult 50 Plus Probiotic) rosuvastatin 20 mg tablet 20 mg PO DAILY #90 tabs 09/06/24 10/17/24 10/16/24 Rx sodium bicarbonate 650 mg tablet 650 mg PO BID 09/06/24 10/17/24 10/17/24 08:00 History hydralazine 100 mg tablet See Rx Instructions .Route 10/04/24 10/17/24 10/16/24 Rx .COMPLEX #270 tabs metolazone 2.5 mg tablet See Rx Instructions .Route 10/16/24 10/17/24 10/17/24 Rx .COMPLEX #90 tabs Allergies Allergy/AdvReac Type Severity Reaction Status Date / Time valsartan Allergy Intermediate angioedema Verified 10/17/24 15:03 Current Medications Generic Name Dose Route Start Last Admin Trade Name Freq PRN Reason Stop Dose Admin Famotidine 20 mg 10/17/24 18:45 10/17/24 19:39 Famotidine 20 Mg/2 Ml Inj IVP 20 mg Q12H BETTE Administration Heparin Sodium (Porcine) 5,000 unit 10/17/24 19:00 10/17/24 19:43 Heparin 5,000 Unit/Ml Inj 1 Ml SUBCUT 5,000 unit Q12H BETTE Administration Sodium Chloride 1,000 mls @ 30 mls/hr 10/17/24 17:30 10/17/24 19:36 Sodium Chloride 0.9% IV Not Given .Q24H BETTE Sodium Chloride 1,000 mls @ 50 mls/hr 10/17/24 18:45 10/17/24 19:36 Sodium Chloride 0.9% IV 50 mls/hr .Q20H BETTE Administration PFSH Acute PFSH: Medical History (Updated 10/17/24 @ 18:15 by Anahi Waterman MD) Sleep apnea Dyslipidemia Abdominal aortic aneurysm (AAA) Bladder cancer Aortic insufficiency with aortic stenosis Hypertension Gout Chronic kidney disease, stage III (moderate) Surgical History No pertinent past surgical history Social History Smoking and tobacco/nicotine status: never used tobacco/nicotine Substance/Drug Use: never Vitals/I&O/Wt Last Vital Signs Temp 98.5 F 10/17/24 19:29 Pulse 67 10/17/24 19:29 Resp 25 H 10/17/24 19:29 BP 157/66 10/17/24 19:29 Pulse Ox 90 10/17/24 19:29 O2 Del Method Room Air 10/17/24 19:29 10/17/24 10/17/24 10/17/24 06:59 14:59 22:59 Intake Total 605 / 605 Balance 605 / 605 Weight last 48 hrs Weight 100.244 kg Physical Exam Narrative: awake , alert no distress PEERLA S1S2 RRR per report Lungs clear per report abd soft , non tender No edema Data 10/18/24 03:38 10/18/24 11:11 A&P Assessment and plan 1. Acute on chronic renal insufficiency: Plan: 1. Acute on chronic kidney disease stage IV: Baseline creatinine seems to be in the 3 range and now has severe DENAE with a creatinine of 5.0, metabolic alkalosis. DENAE likely due to recent increases in diuretics along with poor p.o. intake. - Will hold diuretics for now, will give gentle IV fluids - Will check renal ultrasound and urine electrolytes - On urine analysis he was noted to have 3+ protein no microscopic hematuria, has nonnephrotic range proteinuria in the past. - Prior ANCA and AYE was negative, prior SPEP UPEP was also - Will repeat UPCR, and repeat SPEP and UPEP, check PLA2R antibody if available. 2. Hypokalemia, replete aggressively 3. Metabolic alkalosis, mild, likely contraction alkalosis from recent diuresis, 4. History of hypertension, holding Lasix and metolazone, continue hydralazine Patient evaluated using A/V cart. Time spent 40 minutes. PDMP PDMP Reviewed: Not Reviewed Consult Attestations Medical Necessity Statement: per sabine Coding Level of Care Code Acute Code for Chg Fwd Diagnoses Acute on chronic renal insufficiency N28.9; N18.9
[2024-10-17 21:31] LABS: Glucose Urine UA Trace (Normal); Nitrate Urine Negative (Negative); Specific Gravity, Urine 1.010 (1.005-1.030)
[2024-10-17 21:36] LABS: Add Urine Microscopic? YES
[2024-10-17 22:15] LABS: UA Slide Review UA Slide Review Perf
[2024-10-17 22:19] LABS: Calcium 8.1 mg/dL (8.5-10.5); Carbon Dioxide 28 mmol/L (22-29); Chloride 91 mmol/L (98-107); Creatinine Clr Calc Pharmacy 15.2466; Glucose 128 mg/dL (65-115); Osmolality Calculated 318 mOsm/kg (285-295); Sodium 138 mmol/L (136-145)
[2024-10-17 22:20] LABS: Troponin 5 6HR 88.27 ng/L (0-15)
[2024-10-17 22:22] LABS: Troponin 5 6HR Delta -2.73 ng/L (0-12)
[2024-10-17 22:23] LABS: Anion Gap 22.0 (5-19); Potassium 3.0 mmol/L (3.5-5.1)
[2024-10-17 22:24] LABS: Blood Urea Nitrogen 99 mg/dL (8-23)
[2024-10-18] VITALS: BP 141/69; PULSE 63; RESP 16; TEMP 36.7; O2SAT 95
[2024-10-18 03:40] VITALS: BP 157/66; PULSE 66; RESP 21; TEMP 36.7; O2SAT 95
[2024-10-18 04:07] LABS: Hematocrit 34.0 % (37-53); Hemoglobin 11.20 g/dL (11.27-16.99); Mean Corpuscular HGB Conc 32.9 g/dL (30-55); Mean Corpuscular Hemoglobin 28.7 pg (27-33); Mean Corpuscular Volume 87.2 fl (82-101); Nucleated Red Blood Cells % 0 %; Platelet Count 261 10^3/cmm (157-399); Red Blood Count 3.90 10^6/uL (3.85-5.65); White Blood Count 11.74 10^3/uL (3.29-11.43)
[2024-10-18 04:25] LABS: Lactic Sepsis W/Reflex 0.7 mmol/L (0.5-2.2)
[2024-10-18 04:26] LABS: Alanine Aminotransferase 6 U/L (0-41); Albumin Level 3.6 g/dL (3.5-5.2); Alkaline Phosphatase 81 U/L (40-130); Anion Gap 21.5 (5-19); Aspartate Amino Transferase 11 U/L (0-40); Calcium 8.1 mg/dL (8.5-10.5); Carbon Dioxide 28 mmol/L (22-29); Chloride 94 mmol/L (98-107); Creatinine Clr Calc Pharmacy 16.5954; Globulin 3.3 g/dL (1.3-4.6); Glucose 105 mg/dL (65-115); Magnesium 1.9 mg/dL (1.7-2.3); Osmolality Calculated 322 mOsm/kg (285-295); Sodium 141 mmol/L (136-145); Total Protein 6.9 g/dL (6.6-8.7)
[2024-10-18 04:35] LABS: Blood Urea Nitrogen 95 mg/dL (8-23); Potassium 2.5 mmol/L (3.5-5.1)
[2024-10-18 04:37] LABS: NT Pro B Type Natriuretic Pept 971 pg/mL (0-450)
[2024-10-18] MEDS: heparin 5,000 unit/mL INJ 1 mL 5000 UNIT SUBCUT ×2 (06:40→17:56)
[2024-10-18 07:56] VITALS: BP 141/56; PULSE 68; RESP 18; TEMP 37.1; O2SAT 97
[2024-10-18 09:28] LABS: Estmated Average Glucose 117; Hemoglobin A1C 5.7 % (4.0-6.0)
[2024-10-18 09:41] LABS: Iron 39 ug/dL (59-158); Thyroid Stimulating Hormone 0.78 uIU/mL (0.27-4.20); Total Iron Binding Capacity 248 mcg/dl; Unsaturated Iron Binding 209 ug/dL (112-347); Vitamin B12 449 pg/mL (232-1245)
--- NOTE | 2024-10-18 10:34 | P.PN_ITS ---
Subjective 2 Subjective: Hospital course, labs appreciated. Today morning patient seen with family at bedside sitting at edge of the bed. Denies any nausea, vomiting, headache. Appreciate urine output in last 24 hours. Vitals/I&O/Wt Last Vital Signs Temp 98.7 F 10/18/24 07:56 Pulse 68 10/18/24 07:56 Resp 18 10/18/24 07:56 BP 141/56 10/18/24 07:56 Pulse Ox 97 10/18/24 07:56 O2 Del Method Nasal Cannula 10/18/24 07:56 O2 Flow Rate 2 10/18/24 07:56 10/17/24 10/18/24 10/18/24 22:59 06:59 14:59 Intake Total 863.333 / 685.554 5249.667 / 2605.000 360 / 360 Output Total 200 / 200 850 / 1050 475 / 475 Balance 663.333 / 663.333 891.667 / 1555.000 -115 / -115 Weight last 48 hrs Weight 99.609 kg Weight 100.062 kg Weight 100.244 kg Physical Exam 2 Narrative: General The patient is very weak appearing HEENT normocephalic atraumatic neck neck is supple Cardiovascular heart rate is regular, S1-S2 regular, ejection systolic murmur at aortic region radiated to carotids 2/6 Lungs are clear, normal respiratory breath sounds over lower lung chicas Abdomen soft nontender nondistended Extremities intact, bilateral lower limb edema 1+, has good pulses WEATHERIZATION AND HOUSING INSPECTOR: No focality, patient is alert awake and oriented x 3 Data 10/18/24 03:38 10/18/24 03:38 A&P Assessment and plan 1. Acute hypokalemia: Hypokalemia was secondary to overly diuresis - Admit to stepdown unit - Placed on telemetry - EKG did not show any U wave - Hypokalemia being replaced at this time - Because of the level of creatinine at 5, will repeat lab studies after 40 mEq of IV potassium have been infused - Magnesium is normal at 2 - Will continue to optimize hypokalemia if the repeat is found to be low 2. Acute on chronic renal insufficiency: Patient with chronic stage IV kidney now with acute on chronic - Must hold all diuretics - Must hold all renal unfriendly medications - Patient had received a liter of IV bolus normal saline in the emergency room by the attending at the emergency room - I will initiate a liter at 500 cc/h x 1 L only - Will repeat lab studies an hour after the IV potassium had been completely infused 3. Nausea: Nausea-due to metabolic acidosis from acute on chronic renal failure - Correct metabolic derangement by replacing all electrolytes - Gently replacing some fluid and keeping the patient euvolemic - Continue with antiemetic 4. Dehydration: Very gentle hydration at 50 mL/h of normal saline times only 1 L - Recheck lab studies ordered 5. Hyperbilirubinemia: This is a history continue home medication Plan: Switch to renal nondialysis diet Heparin 5000 every 12 hourly for DVT prophylaxis Famotidine for PUD prophylaxis Plan for the day: Continue with IV hydration with NS at 75 cc/h. Repeat BMP in afternoon. Potassium today morning 2.5. Received 80 mg of oral potassium today. Will repeat 40 mEq more. Further potassium depending on repeat BMP. Monitor urine output. Strict input output charting, daily weights. Goal blood pressure less than 140/90 mmHg. Blood pressure trending up. Restart home dose of amlodipine 10 mg oral daily. Continue with other home medications including aspirin, levothyroxine. Restart finasteride. Appreciate renal ultrasound. Oxygen supplementation keeping saturation over 90%. Restart home BiPAP. Appreciate nephrology recommendations. Appreciate troponin cycle trending down. Patient denies any chest pain. Check A1c, iron panel, vitamin B12 levels. PDMP PDMP Reviewed: Not Reviewed Attestations 2 Medical Necessity Statement*: Requires further hospitalization for management of severe hypokalemia, DENAE on CKD Diagnoses Acute hypokalemia E87.6 Acute on chronic renal insufficiency N28.9; N18.9 Nausea R11.0 Dehydration E86.0 Hyperbilirubinemia E80.6
--- NOTE | 2024-10-18 11:03 | PC.NURSE ---
Patient has had total of 120 MEQ of k+ today. Physician orders to wait for results of BMP prior to adm anymore potassium.
[2024-10-18 11:34] LABS: Anion Gap 21.0 (5-19); Calcium 8.3 mg/dL (8.5-10.5); Carbon Dioxide 26 mmol/L (22-29); Chloride 94 mmol/L (98-107); Creatinine Clr Calc Pharmacy 16.5954; Glucose 142 mg/dL (65-115); Osmolality Calculated 317 mOsm/kg (285-295); Potassium 3.0 mmol/L (3.5-5.1); Sodium 138 mmol/L (136-145)
[2024-10-18 11:40] LABS: Blood Urea Nitrogen 92 mg/dL (8-23)
[2024-10-18 12:00] VITALS: BP 148/83; PULSE 74; RESP 26; TEMP 37; O2SAT 93
--- NOTE | 2024-10-18 14:03 | P.PN_ITS ---
Subjective 2 Subjective: feels better Medications: Reviewed: Yes Vitals/I&O/Wt Last Vital Signs Temp 98.6 F 10/18/24 12:00 Pulse 74 10/18/24 12:00 Resp 26 H 10/18/24 12:00 BP 148/83 10/18/24 12:00 Pulse Ox 93 10/18/24 12:00 O2 Del Method Nasal Cannula 10/18/24 12:00 O2 Flow Rate 1 10/18/24 12:00 10/17/24 10/18/24 10/18/24 22:59 06:59 14:59 Intake Total 863.333 / 323.598 2680.667 / 2605.000 1600 / 1600 Output Total 200 / 200 850 / 1050 475 / 475 Balance 663.333 / 663.333 891.667 / 1931.118 2807 / 1125 Weight last 48 hrs Weight 99.609 kg Weight 100.062 kg Weight 100.244 kg Physical Exam 2 Narrative: awake , alert no distress PEERLA S1S2 RRR per report Lungs clear per report abd soft , non tender No edema Data 10/18/24 03:38 10/18/24 11:11 A&P Assessment and plan 1. Acute on chronic renal insufficiency: Plan: 1. Acute on chronic kidney disease stage IV: Baseline creatinine seems to be in the 3 range and now has severe DENAE with a creatinine of 5.0, metabolic alkalosis. DENAE likely due to recent increases in diuretics along with poor p.o. intake. - Will hold diuretics for now, - Cr slightly better , -Renal US : medical renal dz and no hydronephrosis - On urine analysis he was noted to have 3+ protein no microscopic hematuria, has nonnephrotic range proteinuria in the past. - Prior ANCA and AYE was negative, prior SPEP UPEP was also - Will repeat UPCR, and repeat SPEP and UPEP, check PLA2R antibody if available. 2. Hypokalemia, replete aggressively 3. Metabolic alkalosis, mild, likely contraction alkalosis from recent diuresis, 4. History of hypertension, holding Lasix and metolazone, continue hydralazine Patient evaluated using A/V cart. Time spent 40 minutes. PDMP PDMP Reviewed: Not Reviewed Attestations 2 Medical Necessity Statement*: per [facility] Coding Level of Care Code Acute Code for Chg Fwd Diagnoses Acute on chronic renal insufficiency N28.9; N18.9
[2024-10-18 16:00] VITALS: BP 163/70; PULSE 80; RESP 24; TEMP 36.9; O2SAT 92
[2024-10-18 17:18] LABS: Urine Random Sodium 50 mmol/L
--- OUTSIDE RECORDS SUMMARY | 2024-10-18 17:40 | XMS_ITS | Clinical Summary ---
Author Organization [facility] Facility Address [address] [address] Care Team Providers Care Form Raiser Name Role Phone Kaleb Daniel MD Primary Care Provider [phone] Allergies No known active allergies Medications * This document contains information received from the source organization and may not represent a complete record from that organization. Allopurinol 200 MG tablet Take 300 mg by mouth 1 (one) time each day Active hydrALAZINE 50 MG tablet Take 100 mg by mouth in the morning and 100 mg in the evening and 100 mg before bedtime. 05/31/19 24 Active aspirin (ST MICAH) 81 MG EC tablet Take 81 mg by mouth 1 (one) time each day Active ferrous sulfate 325 (65 Fe) MG EC tablet Take 325 mg by mouth 1 (one) time each day with breakfast Do not crush, chew, or split. Active Probiotic Product (PROBIOTIC PO) Take 1 capsule by mouth 1 (one) time each day Active levothyroxine (SYNTHROID, LEVOTHROID) 75 MCG tablet Take 75 mcg by mouth 1 (one) time each day 06/11/19 23 025 Active nitroglycerin (NITROSTAT) 0.[address] 0.4 mg under the tongue every 5 (five) minutes if needed for chest pain 08/26/19 24 Active finasteride (PROSCAR) 5 MG tablet Take 5 mg by mouth 1 (one) time each day 07/20/19 24 Active amLODIPine (NORVASC) 10 MG tablet Take 10 mg by mouth 1 (one) time each day 12/11/19 24 Active sodium bicarbonate 650 MG tablet Take 1 tablet (650 mg total) by mouth in the morning and 1 tablet (650 mg total) in the evening. 180 tablet 2 05/25/19 25 Active cholecalciferol (VITAMIN D-3) 25 MCG (1000 UT) tabletIndicatio ns:Vitamin D deficiency, not otherwise specified TAKE 2 TABLETS BY MOUTH IN THE MORNING 60 tablet 11 06/06/19 25 Active Empagliflozin (Jardiance) 10 MG tablet Take 10 mg by mouth every morning 90 tablet 07/18/19 25 Active cycloSPORINE (SandIMMUNE) 100 MG capsuleIndicati ons:Nephrotic syndrome with focal and segmental glomerular lesions Take 1 capsule (100 mg total) by mouth in the morning and 1 capsule (100 mg total) in the evening. 7am pm. 07/21/19 25 Active potassium chloride (KLOR-CON) 8 MEQ CR tablet Take 1 tablet (8 mEq total) by mouth in the morning and 1 tablet (8 mEq total) in the evening. Taking it with the potassium. 07/21/19 25 Active furosemide (LASIX) 40 MG tablet Take 2 tablets (80 mg total) by mouth in the morning and 2 tablets (80 mg total) in the evening. 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 Nephrotic syndrome 04/25/2018 Resolved Problems Problem Noted Date Diagnosed Date Resolved Date Stage 3b chronic kidney disease 04/18/2019 05/24/2024 Encounters Date Type Department Care Team Description 10/10/2024 Refill [facility] [address] [place] [phone] Emily Mason NP 07/25/2024 Documentation Only [facility] [address] [place] [address] Kizzy Mahan MA 07/21/2024 Telephone [facility] [address] [place] [address] Patience Segovia MD 07/20/2024 1:30 PM CDT Office Visit [facility] [address] [place] [address] Emily Mason NP Chronic kidney disease stage 4 (HCC) (Primary Dx); Nephrotic syndrome with focal and segmental glomerular lesions 07/20/2024 Patient Outreach [facility] [address] [place] [address] Cassie Farris 07/20/2024 Documentation Only [facility] [address] [place] [phone] Anabel Howard MA 07/20/2024 Documentation Only [facility] [address] [place] [phone] Anabel Howard MA 07/18/2024 Documentation Only [facility] [address] [place] [address] Kizzy Mahan MA 07/18/2024 Telephone [facility] [address] [facility] [address] [place] [address] Monica Reyes from Last 3 Months Immunizations Immunization Administration Dates Next Due Influenza Split High Dose Preservative Free IM 1 ,12/15/2016 Pneumococcal Conjugate 13-Valent 10/15/2016 Family History Medical History Relation Comments Cancer Father 2 colon Heart disease Father 2 Cancer Mother 2 breast Diabetes Mother 2 Relation Status Comments Father 1 Father 2 Mother 1 Mother 2 Social History Tobacco Use Types Packs/Day Years Used Date Smoking Tobacco: Former Cigarettes Q uit: 1998 Smokeless Tobacco: Never Tobacco Cessation:Counseling Given: Not Answered Alcohol Use Standard Drinks/Week Comments Yes 0 (1 standard drink = 0.6 oz pure alcohol) Alcoholic Drinks/day: Occasional social drink Sex and Gender Information Value Date Recorded Sex Assigned at Not on file Legal Sex Male 12:46 PM EST Gender Identity Not on file Sexual Orientation Not on file Last Filed Vital Signs Vital Sign Reading Time Taken Comments Blood Pressure 140/64 07/20/2024 1:15 PM CDT Pulse 67 07/20/2024 1:15 PM CDT Temperature 36.3 C (97.3 F) 10/26/2019 9:15 AM CDT Respiratory Rate - - Oxygen Saturation 95% 07/20/2024 1:15 PM CDT Inhaled Oxygen Concentration - - Weight 114 kg (251 lb 12.8 oz) 07/20/2024 1:15 P M CDT Height 172.7 cm (5' 8 ) 07/20/2024 1:15 PM CDT Body Mass Index 38.29 07/20/2024 1:15 PM CDT Plan of Treatment Upcoming Encounters Date Type Department Care Team (Late st Contact Info) Description 11/27/2024 2:30 PM CDT Office Visit [facility] [address] [place] [address] Delmis Villanueva, MATHEUS [facility] [address] [phone] Health Maintenance Due Date Last Done Comments Colorectal Cancer Screening: Annual FOBT 1997 Colorectal Cancer Screening: Colonoscopy 1997 Colorectal Cancer Screening: Sigmoidoscopy 1997 Pneumococcal Vaccine: 50+ Years (2 of 2 - PPSV23, PCV20, or PCV21) 12/10/2016 10/15/2016 Diabetes: Ophthalmology Exam 04/06/2024 Diabetes: Pedal Pulse Checked 04/06/2024 Diabetes: Sensory Foot Exam 04/06/2024 Diabetes: Visual Foot Exam 04/06/2024 Diabetes: Hemoglobin A1C 04/08/2024 01/07/2024 Influenza Vaccine (#1) 2024 , 12/15/2016 Pneumococcal Vaccine: Peds ( 0 to 5 Years) and At-Risk Patients (6 to 49 Years) Discontinued 10/15/2016 Hepatitis B Vaccine Aged Out No longe r eligible based on patient's age to complete this topic Procedures Procedure Name Priority Date/Time Associated Diagnosis Comments PTH, INTACT Routine 07/19/2024 10:58 AM CDT Focal segmental glomerulosclerosis Nephrotic syndrome PROTEIN, TOTAL W/CREATE, RANDOM URINE (EXTERNAL LAB ENT) Routine 07/19/2024 10:56 AM CDT RENAL FUNCTION PANEL Routine 07/19/2024 10:56 AM CDT Focal segmental glomerulosclerosis Nephrotic syndrome VITAMIN D 25 HYDROXY Routine 07/19/2024 10:56 AM CDT Vitamin D deficiency, not otherwise specified Focal segmental glomerulosclerosis Nephrotic syndrome CBC Routine 07/19/2024 10:56 AM CDT Focal segmental glomerulosclerosis Nephrotic syndrome HEMOGLOBIN A1C Routine 01/07/2024 Stage 3b chronic kidney disease (HCC) from Last 3 Months or Most Recently Relevant to Health Maintenance Results * PTH, Intact (07/19/2024 10:58 AM CDT) Parathyroid Hormone, Intact 177.5 pg/mL PRINT/DATABASE MANAGEMENT SYSTEM SPECIALIST AL (NON-INTERFACE D LABS) Blood specimen (specimen) Venous blood / Unknown 07/19/2024 10:58 AM CDT Narrative PRINT/EXTERNAL (NON-INTERFACED LABS) - 07/20/2024 7:[address] [facility] [address] [place] [address] [id number] [address] Shyla Cleveland, Process Line Operator us Delmis Villanueva NYLON HOT WIRE CUTTER LAB BLOOD ORDERABLES Final Resu lt PRINT/EXTERNAL (NON-INTERFACED LABS) * Protein, Total W/Create, Random Urine (External Lab) (07/19/2024 10:56 AM CDT) Pathologist [facility] Creatinine, Urine Random 53 mg/dL Urine Protein/Creatin ine Ratio 8.77 mg/g creat Protein Urine Random 465 Urine specimen (specimen) 07/19/2024 10:56 AM CDT Narrative AnitaAnabelNICOLE - 07/20/2024 7:[address] [facility] [address] [place] [address] Dr. Shyla Cleveland, Process Line Operator Kaleb Daniel MD LAB URINE ORDERABLES Final Res ult * Vitamin D 25 Hydroxy (07/19/2024 10:56 AM CDT) Pathologist [facility] Vitamin D, 25-OH, Total 27 ng/mL PRINT/EXTERNAL (NON-INTERFACE D LABS) Blood specimen (specimen) Venous blood / Unknown 07/19/2024 10:56 AM CDT Delmis Villanueva NP LAB BLOOD ORDERABLES Final Resu lt PRINT/EXTERNAL (NON-INTERFACED LABS) * CBC (07/19/2024 10:56 AM CDT) Pathologist [facility] WBC 8.74 K/uL PRINT/EXTE RNAL (NON-INTERFACE D LABS) Red Blood Cell Count 4.28 PRINT/EXTERNAL (NON-INTERFACE D LABS) Hemoglobin 13.10 g/dL PRINT/EXT ERNAL (NON-INTERFACE D LABS) Hematocrit 40.0 % PRINT/EXT ERNAL (NON-INTERFACE D LABS) MCV 93.5 PRINT/EXTE RNAL (NON-INTERFACE D LABS) MCH 30.6 PRINT/EXTE RNAL (NON-INTERFACE D LABS) MCHC 32.8 PRINT/EXTE RNAL (NON-INTERFACE D LABS) RDW 13.6 PRINT/EXTE RNAL (NON-INTERFACE D LABS) Platelet Count 273 PRINT /EXTERNAL (NON-INTERFACE D LABS) MPV 11.7 PRINT/EXTE RNAL (NON-INTERFACE D LABS) Absolute Neutrophils 5.47 PRINT/EXTERNAL (NON-INTERFACE D LABS) Absolute Lymphocytes 2.3 PRINT/EXTERNAL (NON-INTERFACE D LABS) Absolute Monocytes 0.7 PRINT/EXTERNAL (NON-INTERFACE D LABS) Absolute Eosinophils 0.2 PRINT/EXTERNAL (NON-INTERFACE D LABS) Absolute Basophils 0.1 PRINT/EXTERNAL (NON-INTERFACE D LABS) Neutrophils 62.6 K/uL PRINT/EX TERNAL (NON-INTERFACE D LABS) Lymphocytes 26.4 PRINT/EX TERNAL (NON-INTERFACE D LABS) Monocytes 7.6 PRINT/EXTE RNAL (NON-INTERFACE D LABS) Eosinophils 1.8 PRINT/EX TERNAL (NON-INTERFACE D LABS) Basophils 1.0 PRINT/EXTE RNAL (NON-INTERFACE D LABS) Blood specimen (specimen) Venous blood / Unknown 07/19/2024 10:56 AM CDT Narrative PRINT/EXTERNAL (NON-INTERFACED LABS) - 07/20/2024 7:[address] [facility] [address] [place] [address] Dr. Shyla Cleveland, Process Line Operator us Delmis Villanueva NYLON HOT WIRE CUTTER LAB BLOOD ORDERABLES Final Resu lt PRINT/EXTERNAL (NON-INTERFACED LABS) * Renal Function Panel (07/19/2024 10:56 AM CDT) Glucose 102 mg/dL PRINT/EXTE RNAL (NON-INTERFACE D LABS) BUN 38 mg/dL PRINT/EXTE RNAL (NON-INTERFACE D LABS) Creatinine 2.9 mg/dL PRINT/EXT ERNAL (NON-INTERFACE D LABS) Sodium 141 mEq/L PRINT/EXTE RNAL (NON-INTERFACE D LABS) Potassium 3.7 mEq/L PRINT/EXTE RNAL (NON-INTERFACE D LABS) Chloride 101 PRINT/EXTE RNAL (NON-INTERFACE D LABS) Carbon Dioxide 25 mmol/L PRINT /EXTERNAL (NON-INTERFACE D LABS) Calcium 18.7 mg/dL PRINT/EXTE RNAL (NON-INTERFACE D LABS) Phosphorus, Serum 3.8 mg/dL PRINT/EXTERNAL (NON-INTERFACE D LABS) Albumin (Blood) 3.9 g/dL PRIN T/EXTERNAL (NON-INTERFACE D LABS) eGFR 22 PRINT/EXTE RNAL (NON-INTERFACE D LABS) Blood specimen (specimen) Venous blood / Unknown 07/19/2024 10:56 AM CDT Narrative PRINT/EXTERNAL (NON-INTERFACED LABS) - 07/20/2024 7:[address] [facility] [address] [place] [id number] [address] Shyla Cleveland, Process Line Operator Delmis Villanueva NP LAB BLOOD ORDERABLES Final Resu lt Performing Organization Address [facility] Co de Phone Number PRINT/EXTERNAL (NON-INTERFACED LABS) * Hemoglobin A1c (01/07/2024) Hemoglobin A1C 5.6 PRINT /EXTERNAL (NON-INTERFACE D LABS) Blood specimen (specimen) Venous blood / Unknown 01/07/2024 Narrative PRINT/EXTERNAL (NON-INTERFACED LABS) - 01/07/2024 [place] [id number] Delmis Villanueva NYLON HOT WIRE CUTTER LAB BLOOD ORDERABLES Final Resu lt PRINT/EXTERNAL (NON-INTERFACED LABS) from Last 3 Months or Most Recently Relevant to Health Maintenance Insurance Medicare [facility] Care Teams Form Raiser Relationship Specialty Start Date End Date Kaleb Daniel MD [address] [place] [address] PCP - General Family Medicine 05/24/24
--- OUTSIDE RECORDS SUMMARY | 2024-10-18 17:40 | XMS_ITS | Encounter Summary ---
Author Organization [facility] Address [address] [address] Phone Care Team Providers Care Commercial Fishing Vessel Operator Name Role Phone Kaleb Daniel MD Primary Care Provider [phone] Reason for Visit * Reason Comments Med Refill Encounter Details Date Type Department Care Team (Late st Contact Info) Description 05/21/2023 Refill [facility] [address] [address] Emily Mason NP [address] [address] Social History Tobacco Use Types Packs/Day Years Used Date Smoking Tobacco: Former Cigarettes Q uit: 1999 Smokeless Tobacco: Never Alcohol Use Standard Drinks/Week Comments Yes 0 (1 standard drink = 0.6 oz pure alcohol) Alcoholic Drinks/day: Occasional social drink Sex and Gender Information Value Date Recorded Sex Assigned at Not on file Legal Sex Male 12:46 PM EST Gender Identity Not on file Sexual Orientation Not on file documented as of this encounter Plan of Treatment Upcoming Encounters Date Type Department Care Team (Late st Contact Info) Description 11/27/2024 2:30 PM CDT Office Visit [facility] [address] [place] [address] Delmis Villanueva NP [address] [facility] [address] [place] [address] documented as of this encounter Visit Diagnoses Not on filedocumented in this encounter Care Teams Commercial Fishing Vessel Operator Relationship Specialty Start Date End Date Kaleb Daniel MD [address] [place] [phone] PCP - General Family Medicine 05/24/24 documented as of this encounter
--- OUTSIDE RECORDS SUMMARY | 2024-10-18 17:40 | XMS_ITS | Encounter Summary ---
Author Organization [facility] Address [address] [address] Phone Care Team Providers Care Concrete Foreman Name Role Phone Kaleb Daniel MD Primary Care Provider [phone] Encounter Details Date Type Department Care Team (Late Contact Info) Description 05/06/2019 Orders Only [facility], [address] [address] Rainer Anderson NP Chronic kidney disease stage 3 (HCC) Social History Tobacco Use Types Packs/Day Years Used Date Smoking Tobacco: Former Cigarettes Smokeless Tobacco: Never Alcohol Use Standard Drinks/Week [...] Description 11/27/2024 2:30 PM CDT Office Visit [facility] [address] [place] [address] Delmis Villanueva NP [address] [facility] [address] [place] [address] documented as of this encounter Visit Diagnoses Diagnosis Chronic kidney disease stage 3 (HCC) documented in this encounter Care Teams Concrete Foreman Relationship Specialty Start Date End Date Kaleb Daniel MD [address] [place] [phone] PCP - General Family Medicine 05/24/24 documented as of this encounter
--- OUTSIDE RECORDS SUMMARY | 2024-10-18 17:40 | XMS_ITS | Encounter Summary ---
Author Organization [facility] Address [address] [place] [address] Care Team Providers Care Tester Equipment Name Role Phone Tim Yan MD, Александр Peterson Primary Care Provider Reason for Referral * Outpatient Services (Routine) - Closed Specialty Diagnoses / Procedures Referred By Shirlene t Referred To Contact Diagnoses Congenital nephrotic syndrome Essential hypertension, benign Procedures US BIOPSY ABDOMEN Johnny Faust MD Referral ID Status Reason Start Date Expiration Date Visits Re quested Visits Authorized [id number] Closed 03/10/2017 04/10/2018 1 1 ITY METER OPERATOR Encounter Details Date Type Department Care Team (Latest Contact Info) Description 03/10/2017 Ancillary Orders [facility] Ultrasound [address] [place] [phone] Johnny Faust MD NO ADDRESS ON FILE Congenital nephrotic syndrome; Essential hypertension, benign Social History Tobacco Use Types Packs/Day Years Used Date Smoking Tobacco: Never Assessed Sex and Gender Information Value Date Recorded Sex Assigned at Not on file Legal Sex Male 2:38 AM GRAVITY METER OPERATOR Gender Identity Not on file Sexual Orientation Not on file documented as of this encounter Plan of Treatment Not on file documented as of this encounter Results * US BIOPSY ABDOMEN (03/19/2017 12:11 PM GRAVITY METER OPERATOR) Anatomical Region Laterality Modality Abdomen Ultrasound 03/19/2017 12:1 2 PM GRAVITY METER OPERATOR Impressions 03/19/2017 3:14 PM GRAVITY METER OPERATOR IMPRESSION: Please see below. 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 Christensen Moderate (conscious) sedation for this procedure was performed with continuous physician supervision. Medical history, physical exam, drug dosages, routes of drug administration, monitoring data, and precise times of service are documented in the medical record on the [facility]-approved form, 'Sedative/Analgesic Administration for Diagnostic and Therapeutic Procedures'. Please see nursing flow sheets for dosage and time. PROCEDURE AND FINDINGS: Successful ultrasound guided inaja kidney biopsy. Preliminary pathology report deems the specimen adequate for glomerular evaluation. Side: Right. Complication/s: None.. Estimated Blood Loss: Minimal. Technique: Informed written consent was obtained with specific understanding of the risks of the procedure including bleeding, infection, and injury to adjacent structures. The patient was taken to the ultrasound suite where the right posterior flank was prepped and draped in normal sterile fashion. A timeout procedure was performed. Intravenous sedation was administered in divided doses. Ultrasound was performed to localize appropriate biopsy site in the posterior inferior aspect of the kidney. Local anesthesia was achieved with subcutaneous injection of 1% lidocaine. With continuous ultrasound imaging, three 18-gauge biopsy passes were obtained with a biopsy device. Post procedure ultrasound imaging identified no immediate complications. Pathology deemed the specimen adequate for evaluation. ++++++++++++++++++++ IMPRESSION: Successful ultrasound guided inaja kidney biopsy with results pending. Narrative Procedure Note Howard Christensen MD - 03/19/2017 IMPRESSION: Please see below. 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 Christensen Moderate (conscious) sedation for this procedure was performed with continuous physician supervision. Medical history, physical exam, drug dosages, routes of drug administration, monitoring data, and precise times of service are documented in the medical record on the [facility]-approved form, 'Sedative/Analgesic Administration for Diagnostic and Therapeutic Procedures'. Please see nursing flow sheets for dosage and time. PROCEDURE AND FINDINGS: Successful ultrasound guided inaja kidney biopsy. Preliminary pathology report deems the specimen adequate for glomerular evaluation. Side: Right. Complication/s: None.. Estimated Blood Loss: Minimal. Technique: Informed written consent was obtained with specific understanding of the risks of the procedure including bleeding, infection, and injury to adjacent structures. The patient was taken to the ultrasound suite where the right posterior flank was prepped and draped in normal sterile fashion. A timeout procedure was performed. Intravenous sedation was administered in divided doses. Ultrasound was performed to localize appropriate biopsy site in the posterior inferior aspect of the kidney. Local anesthesia was achieved with subcutaneous injection of 1% lidocaine. With continuous ultrasound imaging, three 18-gauge biopsy passes were obtained with a biopsy device. Post procedure ultrasound imaging identified no immediate complications. Pathology deemed the specimen adequate for evaluation. ++++++++++++++++++++ IMPRESSION: Successful ultrasound guided inaja kidney biopsy with results pending. us Johnny Faust MD US ORDERABLES Final Result documented in this encounter Visit Diagnoses Diagnosis Congenital nephrotic syndrome Nephrotic syndrome with unspecified pathological lesion in kidney Essential hypertension, benign Congenital nephrotic syndrome Nephrotic syndrome with unspecified pathological lesion in kidney Essential hypertension, benign documented in this encounter Care Teams Tester Equipment Relationship Specialty Start Date End Date Александр Dumont Jr., MD [address] [place] [address] PCP - General Family Practice 03/19/17 documented as of this encounter
--- OUTSIDE RECORDS SUMMARY | 2024-10-18 17:40 | XMS_ITS | Clinical Summary ---
Author Organization [facility] Address [address] [place]: Epic Prelude ADT MATEO NEFF [address] Care Team Providers Care Data Management Engineer Name Role Phone Unavailable Primary Care Provider Unavailabl e Allergies No known active allergies Medications amLODIPine (NORVASC) 10 mg tablet Take 10 mg by mouth daily. 03/19/2017 Active metoprolol tartrate (LOPRESSOR) 25 mg tablet Take 25 mg by mouth 2 times daily. 03/19/2017 Active allopurinoL (ZYLOPRIM) 300 mg tablet TAKE 1 TABLET BY MOUTH EVERY DAY FOR GOUT 08/19/2023 Active ascorbic acid (VITAMIN C) 100 mg Tablet, Chewable Take 100 mg by mouth. Active cycloSPORINE non-modified (SandIMMUNE) 100 mg Capsule take 1 capsule BY MOUTH EVERY MORNING AND ONE EVERY EVENING WITH 25MG DOSE 07/30/2023 Active furosemide (LASIX) 80 mg tablet 07/19/2023 Active hydrALAZINE (APRESOLINE) 25 mg tablet Take 1 Tablet by mouth 2 times daily. 08/22/2023 Active levothyroxine 175 mcg tablet Take 1 Tablet by mouth daily. 08/19/2023 Active losartan (COZAAR) 100 mg tablet 08/13/2023 Active potassium chloride (KLOR-CON) 8 mEq Extended Release tablet 08/19/2023 Acti ve aspirin (ECOTRIN EC) 81 mg Tablet, Delayed Release (E.C.) Take 81 mg by mouth daily. Active CALCIUM CARBONATE-VITAM IN D3 ORAL Take by mouth. Active Active Problems Problem Noted Date Diagnosed Date Abdominal aortic aneurysm (A AA) 3.0 cm to 5.5 cm in diameter in male 09/28/2023 Sleep apnea 09/23/2023 Dyslipidemia 09/23/2023 Infrarenal abdominal aortic aneurysm, without ru pture 09/23/2023 Bladder cancer 09/23/2023 Aortic insufficiency with aortic stenosis 2023 Hypertension 09/23/2023 Gout 09/23/2023 Chronic kidney disease, stage 3 unspecified 09/05 Encounters Date Type Department Care Team Description 09/20/2024 External Device Data ST[facility] ABSTRACTION Provider, Abstract 09/19/2024 External Device Data [facility] ABSTRACTION Provider, Abstract 08/22/2024 External Device Data [facility] ABSTRACTION Provider, Abstract from Last 3 Months Social History Tobacco Use Types Packs/Day Years Used Date Smoking Tobacco: Former Tobacco Cessation:Counseling Given: Not Answered Sex and Gender Information Value Date Recorded Sex Assigned at Not on file Legal Sex Male 5:23 AM FLIGHT OPERATIONS INSPECTOR Gender Identity Not on file Sexual Orientation Not on file Last Filed Vital Signs Vital Sign Reading Time Taken Comments Blood Pressure 143/63 03/29/2024 7:43 AM FLIGHT OPERATIONS INSPECTOR Pulse 66 03/29/2024 7:43 AM FLIGHT OPERATIONS INSPECTOR Temperature 36.4 C (97.6 F) 03/29/2024 7:43 AM FLIGHT OPERATIONS INSPECTOR Respiratory Rate 16 03/29/2024 7:43 AM FLIGHT OPERATIONS INSPECTOR Oxygen Saturation 92% 03/29/2024 7:43 AM FLIGHT OPERATIONS INSPECTOR Inhaled Oxygen Concentration - - Weight 120 kg (264 lb 8.8 oz) 03/21/2024 2:00 PM FLIGHT OPERATIONS INSPECTOR Height 172.7 cm (5' 8 ) 09/23/2023 3:03 PM CDT Body Mass Index 40.22 09/23/2023 3:03 PM CDT Plan of Treatment Health Maintenance Due Date Last Done Comments DTAP/TDAP/TD VACCINES (1 - Tdap) 11/07/1967 ZOSTER VACCINE (1 of 2) 11/07/1967 COLORECTAL SCREENING 1993 Colorectal Cancer Screening 1993 FIT-DNA Q 3 years 1993 FIT/FOBT Q 1 year 1993 Flex Sig/CT Colonography Q 5 years 1993 PNEUMOCOCCAL VACCINE 50+ YEA RS (2 of 2 - PPSV23, PCV20, or PCV21) 12/10/2016 10/15/2016 COVID-19 Vaccine (3 - Moderna risk series) 02/07/2021 01/10/2021, 03/28/2020 RSV VACCINE (60+ or ) (1 - 1-dose 75+ series) 11/07/2023 INFLUENZA VACCINE (#1) 2024 12/13/2018, [address] [place] [id number] MEDICARE PART A AND B [facility] [id number] [place] [address]
--- OUTSIDE RECORDS SUMMARY | 2024-10-18 17:40 | XMS_ITS ---
Author Organization [facility] Address [address] Cor[place]yn: Epic Prelude ADT MATEO NEFF [address] Care Team Providers Care Seat Nailer Name Role Phone Unavailable Primary Care Provider Unavailabl e Active Problems Problem Noted Date Diagnosed Date Abdominal aortic aneurysm (A AA) 3.0 cm to 5.5 cm in diameter in male 09/28/2023 Sleep apnea 09/23/2023 Dyslipidemia 09/23/2023 Infrarenal abdominal aortic aneurysm, without ru pture 09/23/2023 Bladder cancer 09/23/2023 Aortic insufficiency with aortic stenosis 2023 Hypertension 09/23/2023 Gout 09/23/2023 Chronic kidney disease, stage 3 unspecified 09/05 Current Treatment and Therapy Plans No current plan information found. Past Treatment and Therapy Plans No past plan information found. Lifetime Dose Tracking * Chemical Lifetime Dose Automatic Entry Manual Entr y Effective Dose 8.43 mSv 8.43 mSv 0 mSv Total DLP 714.93 DLP 714.93 DLP 0 DLP CTDIvol Max 14.19 mGy 14.19 mGy 0 mGy CTDIvol Min 14.19 mGy 14.19 mGy 0 mGy
--- OUTSIDE RECORDS SUMMARY | 2024-10-18 17:40 | XMS_ITS | Encounter Summary ---
Author Organization [place] [facility] [employer] [facility] Address [address] [address] Phone Care Team Providers Care Health Inspector Name Role Phone Kaleb Daniel MD Primary Care Provider [phone] Reason for Visit * Reason Comments Med Refill Encounter Details Date Type Department Care Team (Late st Contact Info) Description 10/10/2024 Refill [place] [facility], [address] [address] Emily Mason NP [address] [address] Social History Tobacco Use Types [...] Description 11/27/2024 2:30 PM CDT Office Visit [place] [facility], [address] [address] Demlis Villanueva NP [address] [facility] [address] [place] [address] documented as of this encounter Visit Diagnoses Not on filedocumented in this encounter Care Teams Health Inspector Relationship Specialty [place] [address] [place] [phone] PCP - General Family Medicine 05/24/24 documented as of this encounter
--- OUTSIDE RECORDS SUMMARY | 2024-10-18 17:40 | XMS_ITS | Encounter Summary ---
Author Organization [place] [facility] [employer] [facility] Address [address] [address] Phone Care Team Providers Care Dry Cleaning Counter Clerk Name Role Phone Kaleb Daniel MD Primary Care Provider Reason for Visit * Reason Comments Med Refill Encounter Details Date Type Department Care Team (Late st Contact Info) Description 11/19/2022 Refill [place] [facility], [facility] [address] [address] Emily Mason NP [address] [facility] [address] [address] Social History Tobacco Use Types [...] Description 11/27/2024 2:30 PM CDT Office Visit [place] [facility] [employer] [address] [place] [address] Delmis Villanueva NP [address] [facility] [address] [place] [address] documented as of this encounter Visit Diagnoses Not on filedocumented in this encounter Care Teams Dry Cleaning Counter Clerk Relationship Specialty Start Date End Date Kaleb Daniel MD [address] [place] [phone] PCP - General Family Medicine 05/24/24 documented as of this encounter
--- OUTSIDE RECORDS SUMMARY | 2024-10-18 17:40 | XMS_ITS | Encounter Summary ---
Author Organization [facility] [employer] Address [address] [facility] [address] [place] [address] Phone Care Team Providers Care Winchman/Crane Operator Name Role Phone Kaleb Daniel MD Primary Care Provider Encounter Details Date Type Department Care Team (Late st Contact Info) Description 05/24/2018 Orders Only [facility] [employer] [address] [place] [address] Johnny Faust MD [address] [facility] [address] [place] [address] Chronic kidney disease stage 3 Social History Tobacco Use Types Packs/Day Years Used Date Smoking Tobacco: Former Smokeless Tobacco: Never Alcohol Use Standard Drinks/Week [...] Description 11/27/2024 2:30 PM CDT Office Visit [place] [facility] [address] [place] [address] Delmis Villanueva NP [address] [facility] [address] [place] [address] documented as of this encounter Procedures Procedure Name Priority Date/Time Associated Diagnosis Comments RENAL FUNCTION PANEL Routine 05/24/2018 Chronic kidney disease stage 3 documented in this encounter Results * (ABNORMAL) Renal function panel (05/24/2018) Albumin 3.9 3.5 - 5.0 G/DL Comment:[facility] [id number] [facility] BUN 24(A) 4 - 21 mg/dL Calcium 9.5 8.7 - 10.7 mg/dL Chloride 103 99 - 108 Bicarbonate (CO2) 29 22 - 30 mmol/L Creatinine 1.33(A) 0.60 - 1.30 mg/dL eGFR 63.0 mL/min/1.7 3m*2 eGFR Non- 54.0 mL/min/1.7 3m*2 Glucose 103 Phosphorus, Serum 4.3 Potassium 3.9 3.4 - 5.5 Sodium 142 137 - 147 Blood specimen (specimen) Venous blood / Unknown 05/24/2018 us Johnny Faust MD LAB BLOOD ORDERABLES Fi nal Result documented in this encounter Visit Diagnoses Diagnosis Chronic kidney disease stage 3 (HCC) documented in this encounter Care Teams Winchman/Crane Operator Relationship Specialty [place] [address] [place] [phone] PCP - General Family Medicine 05/24/24 documented as of this encounter
--- OUTSIDE RECORDS SUMMARY | 2024-10-18 17:40 | XMS_ITS | Encounter Summary ---
Author Organization [facility] [employer] Address [address] [facility] [address] [place] [address] Phone Care Team Providers Care Oiling Machine Operator Name Role Phone Kaleb Daniel MD Primary Care Provider [phone] Encounter Details Date Type Department Care Team (Late st Contact Info) Description 10/24/2018 Orders Only [facility] [address] [place] [address] Johnny Faust MD [address] [facility] [address] [place] [address] Chronic kidney disease stage 3 [...] Description 11/27/2024 2:30 PM CDT Office Visit [place] [facility] [address] [place] [address] Delmis Villanueva NP [address] [facility] [address] [place] [address] documented as of this encounter Procedures Procedure Name Priority Date/Time Associated Diagnosis Comments URINE ALBUMIN / CREATININE RATIO Routine 10/26/2018 9:16 AM CDT Chronic kidney disease stage 3 VITAMIN D 25 HYDROXY Routine 10/26/2018 9:16 AM CDT Chronic kidney disease stage 3 CBC Routine 10/26/2018 9:16 AM CDT Chronic kidney disease stage 3 RENAL FUNCTION PANEL Routine 10/26/2018 9:16 AM CDT Chronic kidney disease stage 3 documented in this encounter Results * Vit D 25 hydroxy (10/26/2018 9:16 AM CDT) Vitamin D, 25-OH, Total 34 ng/mL Blood specimen (specimen) 10/26/2018 9:16 AM CDT Heena William MA - 10/27/2018 10:08 AM CDT architectural job captain lab [facility] [place] [address] [address] Recruitment Advertising Manager: Aric Barnett DO MPH CLIA: [id number] Johnny Faust MD LAB BLOOD ORDERABLES Fi nal Result * (ABNORMAL) Urine albumin / creatinine ratio (10/26/2018 9:16 AM CDT) Creatinine, Ur 116 mg/dL Microalbumin 106.9 Microalb/Creat Ratio 922(A) 30 - 300 mg/g Creat Urine specimen (specimen) 10/26/2018 9:16 AM CDT Carolina Etienne LPN - 10/28/2018 9:42 AM CDT DIRECTOR CAMP [facility] [place] [address] [address] Recruitment Advertising Manager: Aric Barnett DO MPH CLIA: [id number] Johnny Faust MD LAB URINE ORDERABLES Fi nal Result * CBC (CKD3a) (10/26/2018 9:16 AM CDT) Pathologist [facility] WBC 7.3 K/uL Red Blood Cell Count 4.44 Hemoglobin 12.9 g/dL Hematocrit 38.3 % MCV 86.3 MCH 29.1 MCHC 33.7 RDW 13.7 Platelet Count 268 MPV 11.6 Absolute Neutrophils 4,336 cells/uL Absolute Lymphocytes 2,270 cells/uL Absolute Monocytes 489 cells/uL Absolute Eosinophils 131 cells/uL Absolute Basophils 73 cells/uL Neutrophils 59.4 K/uL Lymphocytes 31.1 Monocytes 6.7 Eosinophils 1.8 Basophils 1.0 Blood specimen (specimen) 10/26/2018 9:16 AM CDT Jose Heena DejesusNICOLE - 10/27/2018 10:06 AM CDT architectural job captain lab [employer] [place] [address] [facility] [address] Recruitment Advertising Manager: Aric Barnett DO MPH CLIA: [id number] Johnny Faust MD LAB BLOOD ORDERABLES Fi nal Result * RFP (CKD3a) (10/26/2018 9:16 AM CDT) Pathologist [facility] Albumin 3.9 3.5 - 5.0 g/dL BUN 21 4 - 21 mg/dL BUN/Creatinine Ratio 16.00 Calcium 9.3 8.7 - 10.7 mg/dL Chloride 106 99 - 108 Bicarbonate (CO2) 22 22 - 30 mmol/L Creatinine 1.30 0.60 - 1.30 mg/dL eGFR 65.0 mL/min/1.7 3m*2 eGFR Non- 56.0 mL/min/1.7 3m*2 Glucose 125 Phosphorus, Serum 3.8 Potassium 3.5 3.4 - 5.5 Sodium 146 137 - 147 Blood specimen (specimen) 10/26/2018 9:16 AM CDT Carolina Etienne LPN - 10/28/2018 9:42 AM CDT DIRECTOR CAMP lab [facility] [place] [id number] [facility] [place] [address] Recruitment Advertising Manager: Aric Barnett DO MPH CLIA: [id number] Johnny Faust MD LAB BLOOD ORDERABLES Fi nal Result documented in this encounter Visit Diagnoses Diagnosis Chronic kidney disease stage 3 (HCC) documented in this encounter Care Teams Oiling Machine Operator Relationship Specialty Start Date End Date Kaleb Daniel MD [address] [place] [phone] PCP - General Family Medicine 05/24/24 documented as of this encounter
--- OUTSIDE RECORDS SUMMARY | 2024-10-18 17:40 | XMS_ITS | Clinical Summary ---
Author Organization [facility] Address [address] [place] [address] Phone Care Team Providers Care Bagging Machine Operator Name Role Phone Tim Yan MD, Александр Peterson Primary Care Provider Medications simvastatin (ZOCOR) 20 mg tablet Take 20 mg by mouth late in the day. Active metoprolol tartrate (LOPRESSOR) 25 mg tablet Take 25 mg by mouth 2 times daily. Active amLODIPine (NORVASC) 10 mg tablet Take 10 mg by mouth daily. Active valsartan (DIOVAN) 320 mg tablet Take 320 mg by mouth daily. Active tamsulosin (FLOMAX) 0.4 mg capsule Take 0.4 mg by mouth daily. Active Social History Tobacco Use Types Packs/Day Years Used Date Smoking Tobacco: Former Cigarettes Sex and Gender Information Value Date Recorded Sex Assigned at Not on file Legal Sex Male 2:38 AM LIFE MANAGER Gender Identity Not on file Sexual Orientation Not on file Last Filed Vital Signs Vital Sign Reading Time Taken Comments Blood Pressure 146/66 03/19/2017 12:15 PM LIFE MANAGER Pulse 62 03/19/2017 12:15 PM LIFE MANAGER Temperature 36.7 C (98 F) 03/19/2017 12:15 PM LIFE MANAGER Respiratory Rate 16 03/19/2017 12:15 PM LIFE MANAGER Oxygen Saturation 94% 03/19/2017 12:15 PM LIFE MANAGER Inhaled Oxygen Concentration - - Weight 99.8 kg (220 lb) 03/19/2017 9:16 AM LIFE MANAGER Height 175.3 cm (5' 9 ) 03/19/2017 9:16 AM LIFE MANAGER Body Mass Index 32.49 03/19/2017 9:16 AM LIFE MANAGER Plan of Treatment Health Maintenance Due Date Last Done Comments DTAP/TDAP/TD VACCINES (1 - Tdap) 11/07/1967 COLORECTAL SCREENING 1993 Colorectal Cancer Screening 1993 FIT-DNA Q 3 years 1993 FIT/FOBT Q 1 year 1993 Flex Sig/CT Colonography Q 5 years 1993 PNEUMOCOCCAL VACCINE 50+ YEARS (1 of 1 - PCV) 11/06/18 99 ZOSTER VACCINE (1 of 2) 1998 RSV VACCINE (60+ or ) (1 - 1-dose 75+ series) 11/07/2023 INFLUENZA VACCINE (#1) 2024 Insurance MEDICARE PART A AND B [facility] Member Subscriber Plan / Payer (Ef fective 2017-Present) Name:Emanuel Mcneal Darcy Relation to Subscriber:Self Name:Emanuel Mcneal Payer ID:[id number] (NAIC) Group ID:Not on file Type:[employer] Address: [facility] [id number] [place] [id number] Care Teams Bagging Machine Operator Relationship Specialty Start Date End Date Александр Dumont Jr., MD [address] [place] [address] PCP - General Family Practice 03/19/17
--- OUTSIDE RECORDS SUMMARY | 2024-10-18 17:40 | XMS_ITS ---
Author Name ALEXANDRA HERNANDES Address [address] [place] [address] Phone Organization [email or web address] Address [address] [place] [address] Phone Care Team Providers Care Sock Drier Name Role Phone MD ALEXANDRA HERNANDES Unavailable [phone] ALLERGIES, ADVERSE REACTIONS AND ALERTS Allergy Name Allergy Date Allergy Status Allergy Severity Allergy Reaction UNKNOWN DRUG ALLERGIES MAY E XIST PROBLEMS Problem Code Problem Description Problem Status Problem Da te Problem End Date N04.1-NEPHROTIC SYNDROME W FOCAL AND SEGMENTAL GLOMERULAR LESIONS NEPHROTIC SYNDROME W FOCAL AND SEGMENTAL GLOMERULAR LESIONS Current 09/14/2024 E55.9-Vitamin D deficiency, unspecified Vitamin D deficiency, unspecified Current 09/14/2024 R41.3-Other amnesia Other amnesia Current 09/14/2024 R41.89-OTH SX SIGNS COG FUNC & AWARENESS OTH SX SIGNS COG FUNC & AWARENESS Current 09/14/2024 F03.918-UNSP DEMENTIA, UNSP SEVERITY, WITH OTHER BEHAVIORAL DISTURB UNSP DEMENTIA, UNSP SEVERITY, WITH OTHER BEHAVIORAL DISTURB Current 09/14/2024 E11.8-Type 2 diabetes mellitus with unspecified complications Type 2 diabetes mellitus with unspecified complications Current 09/14/2024 [id number] KIDNEY FAILURE UNSPECIFIED KIDNEY FAILURE Current 09/14/2024 G47.33-Obstructive sleep apnea (adult) (pediatric) Obstructive sleep apnea (adult) (pediatric) Current 09/14/2024 H91.93-UNSPECIFIED HEARING LOSS, BILATERAL UNSPECIFIED HEARING LOSS, BILATERAL Current 09/14/2024 I73.9-PERIPHERAL VASCULAR DISEASE UNS PERIPHERAL VASCULAR DISEASE UNS Current 09/14/2024 PROCEDURES Procedure Description Date Notes NO PROCEDURES PERFORMED ASSESSMENTS Assessment None PLAN OF TREATMENT Assessment Planned Activity LOINC Planned Kasi e None CONSULTATION NOTE Note Author Date None HISTORY AND PHYSICAL NOTE Note Author Date None PROGRESS NOTE Note Author Date None DISCHARGE SUMMARY Note Author Date None CHIEF COMPLAINT AND REASON FOR VISIT FUNCTIONAL STATUS Functional or Cognitive Find ing None MENTAL STATUS Cognitive Finding None ENCOUNTERS Encounter Type Provider Diagnoses Start Date Location Disc harged to None SOCIAL HISTORY Social Status Observation Unknown if ever smoked Sex: Male CARE TEAM INFORMATION Sock Drier Provider ID Role Location Phone ALEXANDRA HERNANDES [phone] [address], [place] [address] INSURANCE PROVIDERS Payer Name Policy type / Coverage type Covered constitution party ID Policy [employer] [place] J5) Medicare [id number] SELF AARP Private Health Insurance [id number] MARGI Main
--- OUTSIDE RECORDS SUMMARY | 2024-10-18 17:40 | XMS_ITS | Encounter Summary ---
Author Organization [facility] Address [address] [place] [address] Phone Care Team Providers Care Grove Worker Name Role Phone Kaleb Daniel MD Primary Care Provider [phone] Reason for Visit * Reason Comments Med Refill Encounter Details Date Type Department Care Team (Late Contact Info) Description 01/15/2023 Refill [facility] [address] [place] [address] Emily Mason NP [address] [place] [address] Hypertensive chronic kidney disease with stage 1 through stage 4 chronic kidney disease, or unspecified chronic kidney disease; Nephrotic syndrome; Stage 3a chronic kidney disease (HCC) Social History Tobacco Use Types Packs/Day [...] Description 11/27/2024 2:30 PM CDT Office Visit [facility] [address] [place] [address] Delmis Villanueva NP [address] [facility] [address] [place] [address] documented as of this encounter Visit Diagnoses Diagnosis Hypertensive chronic kidney disease with stage 1 through stage 4 chronic kidney disease, or unspecified chronic kidney disease Nephrotic syndrome Stage 3a chronic kidney disease (HCC) documented in this encounter Care Teams Grove Worker Relationship Specialty Start Date End Date Kaleb Daniel MD [facility] [place] [address] PCP - General Family Medicine 05/24/24 documented as of this encounter
--- OUTSIDE RECORDS SUMMARY | 2024-10-18 17:40 | XMS_ITS | Encounter Summary ---
Author Organization [facility] [employer] [facility] Address [address] [facility] [employer] [address] [address] Phone Care Team Providers Care Traveling Repair Accountant Name Role Phone Kaleb Daniel MD Primary Care Provider [phone] Reason for Visit * Reason Comments Med Refill Encounter Details Date Type Department Care Team (Late Contact Info) Description 09/20/2023 Refill [facility] [employer], [facility] [address] [address] Patience Segovia MD [address] [address] Social History Tobacco Use Types Packs/Day Years Used Date Smoking Tobacco: Former Cigarettes Q uit: 1998 Smokeless Tobacco: Never Alcohol Use Standard Drinks/Week [...] Encounters Date Type Department Care Team (Late Contact Info) Description 11/27/2024 2:30 PM CDT Office Visit [facility] [address] [place] [address] Delmis Villanueva NP [address] [facility] [address] [facility] [address] [place] [address] documented as of this encounter Visit Diagnoses Not on filedocumented in this encounter Care Teams Traveling Repair Accountant Relationship Specialty [place] [address] [place] [phone] PCP - General Family Medicine 05/24/24 documented as of this encounter
[2024-10-18 19:32] VITALS: BP 143/75; PULSE 97; RESP 24; TEMP 36.9; O2SAT 94
[2024-10-18] MEDS: MELATONIN 3 MG TABLET PO (23:54)
[2024-10-19] VITALS: BP 149/76; PULSE 80; RESP 10; TEMP 36.6; O2SAT 96
[2024-10-19 03:07] LABS: Hematocrit 32.6 % (37-53); Hemoglobin 10.90 g/dL (11.27-16.99); Mean Corpuscular HGB Conc 33.4 g/dL (30-55); Mean Corpuscular Hemoglobin 29.2 pg (27-33); Mean Corpuscular Volume 87.4 fl (82-101); Nucleated Red Blood Cells % 0 %; Platelet Count 262 10^3/cmm (157-399); Red Blood Count 3.73 10^6/uL (3.85-5.65); White Blood Count 10.01 10^3/uL (3.29-11.43)
[2024-10-19 03:33] LABS: Alanine Aminotransferase 7 U/L (0-41); Albumin Level 3.6 g/dL (3.5-5.2); Alkaline Phosphatase 83 U/L (40-130); Anion Gap 18.0 (5-19); Aspartate Amino Transferase 15 U/L (0-40); Blood Urea Nitrogen 78 mg/dL (8-23); Calcium 8.3 mg/dL (8.5-10.5); Carbon Dioxide 27 mmol/L (22-29); Chloride 99 mmol/L (98-107); Creatinine Clr Calc Pharmacy 18.7231; Globulin 3.3 g/dL (1.3-4.6); Glucose 107 mg/dL (65-115); Osmolality Calculated 316 mOsm/kg (285-295); Potassium 3.0 mmol/L (3.5-5.1); Sodium 141 mmol/L (136-145); Total Protein 6.9 g/dL (6.6-8.7)
[2024-10-19 03:39] VITALS: BP 167/69; PULSE 85; RESP 15; TEMP 36.6; O2SAT 95
[2024-10-19 03:39] LABS: Magnesium 1.8 mg/dL (1.7-2.3)
[2024-10-19] MEDS: heparin 5,000 unit/mL INJ 1 mL 5000 UNIT SUBCUT ×2 (06:47→19:42)
[2024-10-19 07:25] VITALS: BP 157/84; PULSE 78; RESP 15; TEMP 36.4; O2SAT 97
[2024-10-19 09:00] LABS: Creatinine, Random Urine 47 mg/dL (20-320); Protein, Total, Random 207 mg/dL (5-25); Protein/Creatinine Ratio 4.404 (0.025-0.148); Protein/Creatinine Ratio 4404 mg/g creat (25-148)
--- NOTE | 2024-10-19 09:51 | PC.CHAP ---
Pastoral Care Encounter/Spiritual Assessment Type of Contact [] Declined transportation inspector visit [] Patient/Family/Request visit [] Outpatient visit [] Follow-up visit [] Physician referral [] Code/Alert [x] Routine visit [] Staff referral [] Actively dying [] Patient sleeping [x] Family support [] [] Out of room [] Palliative care [] [] Receiving care in room [] Pre-surgical visit [] Trauma [] Long length of stay [] ICU visit [] Other: Relational/Emotional Strength [x] Patient feels connected with others/family/visitors/staff [] Distress [] Loneliness/isolation [] Abandonment Spirituality of Patient [x] Person of [place] [] Attends Latter-[employer] of their [place] [x] Believes in Prayer [] Reads Bible or Mormon materials [] There are Spiritual issues to be addressed Supervisor [employer] Interventions [x] Prayer [x] Active listening [] Non-anxious presence [x] Spiritual/emotional support [] Crisis/trauma care [] Spiritual counseling [] Bereavement support [] Provided bereavement packet [] Provided Bible/devotional materials [] Provided toy/stuffed animal, coloring book to patient or family member [] Provided Communion [] Anointing/Ulmer [] Salvation [x] Completed spiritual assessment [] Other: Impact on Illness or Injury [] Angry [] Fearful [] Anxious [] Often cries [] Exhaustion [] Unable to work [] Unable to attend tenriism [] Unable to walk/stand [] Unable to read [] Unable to drive [] Unable to eat/drink [] Unable to sleep [] Unable to be with family [] Patient intubated [] Other: Summary Time spent with patient 5 min
--- NOTE | 2024-10-19 12:49 | P.PN_ITS ---
Subjective 2 Subjective: seen this morning K 3.0 today Vitals/I&O/Wt Last Vital Signs Temp 97.6 F 10/19/24 07:25 Pulse 78 10/19/24 07:25 Resp 15 10/19/24 07:25 BP 157/84 10/19/24 07:25 Pulse Ox 97 10/19/24 07:25 O2 Del Method Nasal Cannula 10/19/24 03:39 O2 Flow Rate 1 10/18/24 12:00 10/18/24 10/19/24 10/19/24 22:59 06:59 14:59 Intake Total 480 / 2080 Output Total 400 / 875 1500 / 2375 350 / 350 Balance -400 / 725 -1020 / -295 -350 / -350 Weight last 48 hrs Weight 98.702 kg Weight 99.609 kg Weight 100.062 kg Weight 100.244 kg Physical Exam 2 Narrative: General: pt sitting up on edge of bed HEENT normocephalic atraumatic neck neck is supple Cardiovascular heart rate is regular, S1-S2 regular, ejection systolic murmur at aortic region radiated to carotids 2/6 Lungs are clear, normal respiratory breath sounds over lower lung chicas Abdomen soft nontender nondistended Extremities intact, bilateral lower limb edema 1+, has good pulses B AND B GANG WORKER: No focality, patient is alert awake and oriented x 3 Data 10/19/24 02:50 10/19/24 02:50 A&P Assessment and plan 1. Acute hypokalemia: Hypokalemia was secondary to overly diuresis - Admit to stepdown unit - Placed on telemetry - EKG did not show any U wave - Hypokalemia being replaced at this time - Because of the level of creatinine at 5, will repeat lab studies after 40 mEq of IV potassium have been infused - Magnesium is normal at 2 - Will continue to optimize hypokalemia if the repeat is found to be low 2. Acute on chronic renal insufficiency: Patient with chronic stage IV kidney now with acute on chronic - Must hold all diuretics - Must hold all renal unfriendly medications - Patient had received a liter of IV bolus normal saline in the emergency room by the attending at the emergency room - I will initiate a liter at 500 cc/h x 1 L only - Will repeat lab studies an hour after the IV potassium had been completely infused 3. Nausea: Nausea-due to metabolic acidosis from acute on chronic renal failure - Correct metabolic derangement by replacing all electrolytes - Gently replacing some fluid and keeping the patient euvolemic - Continue with antiemetic 4. Dehydration: Very gentle hydration at 50 mL/h of normal saline times only 1 L - Recheck lab studies ordered 5. Hyperbilirubinemia: This is a history continue home medication Plan: Switch to renal nondialysis diet Heparin 5000 every 12 hourly for DVT prophylaxis Famotidine for PUD prophylaxis Plan for the day: Continue with IV hydration with NS at 75 cc/h. Repeat BMP in afternoon. Potassium today morning 2.5. Received 80 mg of oral potassium today. Will repeat 40 mEq more. Further potassium depending on repeat BMP. Monitor urine output. Strict input output charting, daily weights. Goal blood pressure less than 140/90 mmHg. Blood pressure trending up. Restart home dose of amlodipine 10 mg oral daily. Continue with other home medications including aspirin, levothyroxine. Restart finasteride. Appreciate renal ultrasound. Oxygen supplementation keeping saturation over 90%. Restart home BiPAP. Appreciate nephrology recommendations. Appreciate troponin cycle trending down. Patient denies any chest pain. Check A1c, iron panel, vitamin B12 levels. 10/19/2024 order potassium 40 BID today recheck K in AM continue current meds hold IV fluids nephrology consulted and following, appreciate recommendations. discussed plan with nephro over the phone 3.9 creatinine, trending down abd aortic aneurysm: follow up with cardiology outpatient PDMP PDMP Reviewed: Not Reviewed Attestations 2 Medical Necessity Statement*: Requires further hospitalization for management of severe hypokalemia, DENAE on CKD Diagnoses Acute hypokalemia E87.6 Acute on chronic renal insufficiency N28.9; N18.9 Nausea R11.0 Dehydration E86.0 Hyperbilirubinemia E80.6
[2024-10-19 16:00] VITALS: BP 141/69; PULSE 117; RESP 15; O2SAT 97
[2024-10-19 20:00] VITALS: BP 119/57; PULSE 94; RESP 21; TEMP 37
--- NOTE | 2024-10-19 21:50 | P.PN_ITS ---
Subjective 2 Subjective: no new c/o Medications: Reviewed: Yes Vitals/I&O/Wt Last Vital Signs Temp 97.6 F 10/19/24 07:25 Pulse 117 H 10/19/24 16:00 Resp 15 10/19/24 16:00 BP 141/69 10/19/24 16:00 Pulse Ox 97 10/19/24 16:00 O2 Del Method Nasal Cannula 10/19/24 03:39 O2 Flow Rate 1 10/18/24 12:00 10/19/24 10/19/24 10/19/24 06:59 14:59 22:59 Intake Total 480 / 2080 120 / 120 Output Total 1500 / 2375 350 / 350 500 / 850 Balance -1020 / -295 -230 / -230 -500 / -730 Weight last 48 hrs Weight 98.702 kg Weight 99.609 kg Physical Exam 2 Narrative: awake , alert no distress PEERLA S1S2 RRR per report Lungs clear per report abd soft , non tender No edema Data 10/20/24 02:36 10/20/24 02:36 A&P Assessment and plan 1. Acute on chronic renal insufficiency: Plan: 1. Acute on chronic kidney disease stage IV: Baseline creatinine seems to be in the 3 range and now has severe DENAE with a creatinine of 5.0, metabolic alkalosis. DENAE likely due to recent increases in diuretics along with poor p.o. intake. - Will hold diuretics for now, - Cr improving , -Renal US : medical renal dz and no hydronephrosis - On urine analysis he was noted to have 3+ protein no microscopic hematuria, has nonnephrotic range proteinuria in the past. - Prior ANCA and AYE was negative, prior SPEP UPEP was also - Will repeat UPCR, and repeat SPEP and UPEP, check PLA2R antibody if available. 2. Hypokalemia, replete aggressively 3. Metabolic alkalosis, mild, likely contraction alkalosis from recent diuresis, 4. History of hypertension, holding Lasix and metolazone, continue hydralazine Patient evaluated using A/V cart. Time spent 40 minutes. PDMP PDMP Reviewed: Not Reviewed Attestations 2 Medical Necessity Statement*: per [facility] Coding Level of Care Code Acute Code for Chg Fwd Diagnoses Acute on chronic renal insufficiency N28.9; N18.9
[2024-10-19] MEDS: MELATONIN 3 MG TABLET PO (22:05)
[2024-10-20] VITALS (7 sets, daily range): BP systolic 125–174; BP diastolic 52–75; PULSE 73–87; RESP 14–22; TEMP 36.7–36.8; O2SAT 90–95
[2024-10-20 03:04] LABS: Hematocrit 31.1 % (37-53); Hemoglobin 10.30 g/dL (11.27-16.99); Mean Corpuscular HGB Conc 33.1 g/dL (30-55); Mean Corpuscular Hemoglobin 29.1 pg (27-33); Mean Corpuscular Volume 87.9 fl (82-101); Nucleated Red Blood Cells % 0 %; Platelet Count 267 10^3/cmm (157-399); Red Blood Count 3.54 10^6/uL (3.85-5.65); White Blood Count 10.07 10^3/uL (3.29-11.43)
[2024-10-20 03:31] LABS: Alanine Aminotransferase 8 U/L (0-41); Albumin Level 3.6 g/dL (3.5-5.2); Alkaline Phosphatase 80 U/L (40-130); Anion Gap 17.9 (5-19); Aspartate Amino Transferase 18 U/L (0-40); Blood Urea Nitrogen 62 mg/dL (8-23); Calcium 8.6 mg/dL (8.5-10.5); Carbon Dioxide 27 mmol/L (22-29); Chloride 102 mmol/L (98-107); Creatinine Clr Calc Pharmacy 17.7299; Globulin 2.9 g/dL (1.3-4.6); Glucose 118 mg/dL (65-115); Osmolality Calculated 315 mOsm/kg (285-295); Potassium 3.9 mmol/L (3.5-5.1); Sodium 143 mmol/L (136-145); Total Protein 6.5 g/dL (6.6-8.7)
[2024-10-20 03:32] LABS: Magnesium 2.0 mg/dL (1.7-2.3)
[2024-10-20] MEDS: heparin 5,000 unit/mL INJ 1 mL 5000 UNIT SUBCUT ×2 (06:42→18:07)
[2024-10-20 09:33] LABS: PROTEIN, TOTAL 6.6 g/dL (6.1-8.1)
--- NOTE | 2024-10-20 09:54 | PC.SOCIAL ---
IMM Update Updated pt on IMM. No questions voiced. Provided pt a copy. Initialed, dated, & timed a copy & placed in chart.
--- NOTE | 2024-10-20 12:14 | P.PN_ITS ---
Subjective 2 Subjective: Patient feels well this morning. Denies shortness of breath pain abdominal pain Resting comfortably in bed with family at bedside. Creatinine 4.1 today, potassium 3.9. Vitals/I&O/Wt Last Vital Signs Temp 98.0 F 10/20/24 12:00 Pulse 86 10/20/24 12:00 Resp 16 10/20/24 12:00 BP 125/75 10/20/24 12:00 Pulse Ox 95 10/20/24 04:53 O2 Del Method BiPAP 10/20/24 00:00 O2 Flow Rate 1 10/18/24 12:00 10/19/24 10/20/24 10/20/24 22:59 06:59 14:59 Intake Total 120 / 120 Output Total 950 / 1300 650 / 1950 500 / 500 Balance -950 / -1180 -650 / -1830 -380 / -380 Weight last 48 hrs Weight 103.827 kg Weight 98.702 kg Physical Exam 2 Narrative: General: pt sitting up on edge of bed HEENT normocephalic atraumatic neck neck is supple Cardiovascular heart rate is regular, S1-S2 regular, ejection systolic murmur at aortic region Lungs are clear, normal respiratory breath sounds over lower lung chicas Abdomen soft nontender nondistended Extremities intact, bilateral lower limb edema 1+, has good pulses Data 10/20/24 02:36 10/20/24 02:36 A&P Assessment and plan 1. Acute hypokalemia: Hypokalemia was secondary to overly diuresis - Admit to stepdown unit - Placed on telemetry - EKG did not show any U wave - Hypokalemia being replaced at this time - Because of the level of creatinine at 5, will repeat lab studies after 40 mEq of IV potassium have been infused - Magnesium is normal at 2 - Will continue to optimize hypokalemia if the repeat is found to be low 2. Acute on chronic renal insufficiency: Patient with chronic stage IV kidney now with acute on chronic - Must hold all diuretics - Must hold all renal unfriendly medications - Patient had received a liter of IV bolus normal saline in the emergency room by the attending at the emergency room - I will initiate a liter at 500 cc/h x 1 L only - Will repeat lab studies an hour after the IV potassium had been completely infused 3. Nausea: Nausea-due to metabolic acidosis from acute on chronic renal failure - Correct metabolic derangement by replacing all electrolytes - Gently replacing some fluid and keeping the patient euvolemic - Continue with antiemetic 4. Dehydration: Very gentle hydration at 50 mL/h of normal saline times only 1 L - Recheck lab studies ordered 5. Hyperbilirubinemia: This is a history continue home medication Plan: Switch to renal nondialysis diet Heparin 5000 every 12 hourly for DVT prophylaxis Famotidine for PUD prophylaxis Plan for the day: Continue with IV hydration with NS at 75 cc/h. Repeat BMP in afternoon. Potassium today morning 2.5. Received 80 mg of oral potassium today. Will repeat 40 mEq more. Further potassium depending on repeat BMP. Monitor urine output. Strict input output charting, daily weights. Goal blood pressure less than 140/90 mmHg. Blood pressure trending up. Restart home dose of amlodipine 10 mg oral daily. Continue with other home medications including aspirin, levothyroxine. Restart finasteride. Appreciate renal ultrasound. Oxygen supplementation keeping saturation over 90%. Restart home BiPAP. Appreciate nephrology recommendations. Appreciate troponin cycle trending down. Patient denies any chest pain. Check A1c, iron panel, vitamin B12 levels. 10/19/2024 order potassium 40 BID today recheck K in AM continue current meds hold IV fluids nephrology consulted and following, appreciate recommendations. discussed plan with nephro over the phone 3.9 creatinine, trending down abd aortic aneurysm: follow up with cardiology outpatient 10/20/2024 continue check bmp daily cr 4.1 today nephro following pt euvolemic Patient follows with [facility] as an outpatient. Await nephrology recommendations. Patient may potentially discharge home today PDMP PDMP Reviewed: Not Reviewed Attestations 2 Medical Necessity Statement*: Requires further hospitalization for management of severe hypokalemia, DENEA on CKD Diagnoses Acute hypokalemia E87.6 Acute on chronic renal insufficiency N28.9; N18.9 Nausea R11.0 Dehydration E86.0 Hyperbilirubinemia E80.6
[2024-10-20] MEDS: MELATONIN 3 MG TABLET PO (22:38)
--- NOTE | 2024-10-20 22:44 | P.PN_ITS ---
Subjective 2 Subjective: no new c/o Medications: Reviewed: Yes Vitals/I&O/Wt Last Vital Signs Temp 98.0 F 10/20/24 16:00 Pulse 82 10/20/24 16:00 Resp 20 H 10/20/24 16:00 BP 154/72 10/20/24 16:00 Pulse Ox 95 10/20/24 04:53 O2 Del Method BiPAP 10/20/24 00:00 O2 Flow Rate 1 10/18/24 12:00 10/20/24 10/20/24 10/20/24 06:59 14:59 22:59 Intake Total 120 / 120 Output Total 650 / 1950 1000 / 1000 900 / 1900 Balance -650 / -1830 -880 / -880 -900 / -1780 Weight last 48 hrs Weight 103.827 kg Weight 98.702 kg Physical Exam 2 Narrative: awake , alert no distress PEERLA S1S2 RRR per report Lungs clear per report abd soft , non tender No edema Data 10/20/24 02:36 10/20/24 02:36 A&P Assessment and plan 1. Acute on chronic renal insufficiency: Plan: 1. Acute on chronic kidney disease stage IV: Baseline creatinine seems to be in the 3 range and now has severe DENAE with a creatinine of 5.0, metabolic alkalosis. DENAE likely due to recent increases in diuretics along with poor p.o. intake. - Cr slightly worse , plan to give gentle IVFs - resume diuretics @ DC , - lasix 40 mg daily and Kcla 10 meq BID -Renal US : medical renal dz and no hydronephrosis - On urine analysis he was noted to have 3+ protein no microscopic hematuria, has nonnephrotic range proteinuria in the past. - Prior ANCA and AYE was negative, prior SPEP UPEP was also - Will repeat UPCR, and repeat SPEP and UPEP, check PLA2R antibody if available. 2. Hypokalemia, replete aggressively 3. Metabolic alkalosis, mild, likely contraction alkalosis from recent diuresis, 4. History of hypertension, holding Lasix and metolazone, continue hydralazine Patient evaluated using A/V cart. Time spent 40 minutes. PDMP PDMP Reviewed: Not Reviewed Attestations 2 Medical Necessity Statement*: per [facility] Coding Level of Care Code Acute Code for Chg Fwd Diagnoses Acute on chronic renal insufficiency N28.9; N18.9
[2024-10-21] VITALS: BP 144/76; PULSE 73; RESP 18; O2SAT 94
[2024-10-21 03:46] LABS: Hematocrit 31.5 % (37-53); Hemoglobin 10.00 g/dL (11.27-16.99); Mean Corpuscular HGB Conc 31.7 g/dL (30-55); Mean Corpuscular Hemoglobin 28.7 pg (27-33); Mean Corpuscular Volume 90.3 fl (82-101); Nucleated Red Blood Cells % 0 %; Platelet Count 273 10^3/cmm (157-399); Red Blood Count 3.49 10^6/uL (3.85-5.65); White Blood Count 9.00 10^3/uL (3.29-11.43)
[2024-10-21 04:13] LABS: Anion Gap 17.1 (5-19); Blood Urea Nitrogen 53 mg/dL (8-23); Calcium 8.6 mg/dL (8.5-10.5); Carbon Dioxide 25 mmol/L (22-29); Chloride 104 mmol/L (98-107); Creatinine Clr Calc Pharmacy 21.2980; Glucose 113 mg/dL (65-115); Magnesium 2.0 mg/dL (1.7-2.3); Osmolality Calculated 311 mOsm/kg (285-295); Potassium 3.1 mmol/L (3.5-5.1); Sodium 143 mmol/L (136-145)
[2024-10-21 04:31] VITALS: BP 139/58; PULSE 68; RESP 20; O2SAT 94
[2024-10-21 05:40] VITALS: BMI 34.2
[2024-10-21] MEDS: heparin 5,000 unit/mL INJ 1 mL 5000 UNIT SUBCUT (06:26)
[2024-10-21 07:30] VITALS: BP 184/83; PULSE 75; RESP 19; TEMP 36.8; O2SAT 95
--- NOTE | 2024-10-21 09:59 | PM.DCS ---
Discharge Providers Date of Admission: 10/17/24 18:04 Date of Discharge: October 21, 2024 Attending Provider at Admission: Anahi Waterman MD Attending Provider at Discharge: Echo Cardenas MD Primary Care Provider: Kaleb Daniel MD Diagnoses at Discharge Discharge Diagnosis 1. Acute on chronic renal insufficiency: Reason for Visit Reason for Visit: adnormal labs Hospital Course Hospital Course Patient presented to the hospital with acute hypokalemia most likely secondary to overdiuresis. His diuretics were held and patient was given IV fluids. Upon presentation his creatinine was 5 and at time of discharge was down to 3.3. His Lasix dose was adjusted to be only once a day and to follow-up closely with Dr. Segovia clinic. We will send a copy of this discharge summary to Dr. Segovia as well. Nephrology was consulted during hospitalization. Patient was given oral potassium multiple times and eventually potassium normalized. Jardiance was held at discharge. Patient's sodium bicarbonate continued. Recommended close follow-up with nephrology. Repeat labs given to be done as outpatient. All questions answered. Patient will be discharged home in stable condition. Patient's at bedside was also updated. Physical Exam Narrative: General: pt sitting up on edge of bed HEENT normocephalic atraumatic neck neck is supple Cardiovascular heart rate is regular, S1-S2 regular, ejection systolic murmur at aortic region Lungs are clear, normal respiratory breath sounds over lower lung chicas Abdomen soft nontender nondistended Extremities intact, bilateral lower limb edema 1+, has good pulses Discharge Data Studies Completed and Pending Completed Studies During Hospitalization Category Date Time Status XR chest 1V portable [id number] Stat Exams 10/17/24 15:19 Completed US renal BI* [id number] Routine Ultrasound 10/17/24 20:11 Completed Pending at discharge Category Date Time Status Miscellaneous Test Routine Lab 10/18/24 17:16 Received SPEP [Total Protein Electrophoresis] Routine Lab 10/18/24 17:16 Results Urine Protein Electrop Random Routine Lab 10/18/24 15:40 Results Radiology Impressions Chest X-Ray 10/17/24 15:19 IMPRESSION: No acute finding. Renal Ultrasound 10/17/24 20:11 IMPRESSION: 1. No hydronephrosis. 2. Mild chronic medical renal disease. 3. Bilateral renal cysts. 4. No post void residual. Laboratory Results WBC 9.00 10^3/uL (3.29-11.43) 10/21/24 03:02 RBC 3.49 10^6/uL (3.85-5.65) L 10/21/24 03:02 Hgb 10.00 g/dL (11.27-16.99) L 10/21/24 03:02 Hct 31.5 % (37-53) L 10/21/24 03:02 MCV 90.3 fl (82-101) 10/21/24 03:02 MCH 28.7 pg (27-33) 10/21/24 03:02 MCHC 31.7 g/dL (30-55) 10/21/24 03:02 RDW 14.7 % (12.1-15.1) 10/21/24 03:02 Plt Count 273 10^3/cmm (157-399) 10/21/24 03:02 MPV 11.4 fL (7.4-10.4) H 10/21/24 03:02 Neut % (Auto) 65.8 % 10/21/24 03:02 Lymph % (Auto) 20.7 % 10/21/24 03:02 [place] % (Auto) 8.2 % 10/21/24 03:02 Eos % (Auto) 3.7 % 10/21/24 03:02 Baso % (Auto) 1.2 % 10/21/24 03:02 Neut # (Auto) 5.92 10^3/uL (1.8-7.7) 10/21/24 03:02 Lymph # (Auto) 1.9 10^3/uL (0.8-4.8) 10/21/24 03:02 [place] # (Auto) 0.7 10^3/uL (0.2-0.9) 10/21/24 03:02 Eos # (Auto) 0.3 10^3/uL (0.0-0.8) 10/21/24 03:02 Baso # (Auto) 0.1 10^3/uL (0.0-0.1) 10/21/24 03:02 Nucleated RBC % (auto) 0 % 10/21/24 03:02 Nucleated RBCs # 0.0 /100WBC 10/21/24 03:02 PT 13.10 SECONDS (12.1-14.9) 10/17/24 15:19 INR 0.93 (0.8-1.2) 10/17/24 15:19 APTT 37.7 SECONDS (23.9-36.7) H 10/17/24 15:19 Sodium 143 mmol/L (136-145) 10/21/24 03:02 Potassium 3.1 mmol/L (3.5-5.1) L 10/21/24 03:02 Chloride 104 mmol/L (98-107) 10/21/24 03:02 Carbon Dioxide 25 mmol/L (22-29) 10/21/24 03:02 Anion Gap 17.1 (5-19) 10/21/24 03:02 BUN 53 mg/dL (8-23) H 10/21/24 03:02 Creatinine 3.5 mg/dL (0.7-1.2) H 10/21/24 03:02 GFR Calculation Not Reportable 10/21/24 03:02 Glucose 113 mg/dL (65-115) 10/21/24 03:02 Estimat Average Glucose 117 10/18/24 03:38 Hemoglobin A1c 5.7 % (4.0-6.0) 10/18/24 03:38 Calculated Osmolality 311 mOsm/kg (285-295) H 10/21/24 03:02 Lactic Acid 0.7 mmol/L (0.5-2.2) 10/18/24 03:38 Calcium 8.6 mg/dL (8.5-10.5) 10/21/24 03:02 Phosphorus 3.5 mg/dL (2.5-4.5) 10/20/24 02:36 Magnesium 2.0 mg/dL (1.7-2.3) 10/21/24 03:02 Iron 39 ug/dL (59-158) L 10/18/24 03:38 TIBC 248 mcg/dl 10/18/24 03:38 % Saturation 15.7 % (20-50) L 10/18/24 03:38 Unsat Iron Binding 209 ug/dL (112-347) 10/18/24 03:38 Total Bilirubin 0.6 mg/dL (0.15-1.2) 10/20/24 02:36 AST 18 U/L (0-40) 10/20/24 02:36 ALT 8 U/L (0-41) 10/20/24 02:36 Alkaline Phosphatase 80 U/L (40-130) 10/20/24 02:36 Troponin T Baseline 91 ng/L (0-15) H 10/17/24 15:19 Troponin T 120 Minute 86.62 ng/L (0-15) H 10/17/24 17:43 Delta Troponin T -4.38 ABS# (0-10) L 10/17/24 17:43 Troponin T Hi Sens 6Hr 88.27 ng/L (0-15) H 10/17/24 21:29 Troponin T Hi Sens 6Hr Delta -2.73 ng/L (0-12) L 10/17/24 21:29 NT-Pro-B Natriuret Pep 971 pg/mL (0-450) H 10/18/24 03:38 Total Protein 6.5 g/dL (6.6-8.7) L 10/20/24 02:36 Albumin 3.6 g/dL (3.5-5.2) 10/20/24 02:36 Globulin 2.9 g/dL (1.3-4.6) 10/20/24 02:36 Vitamin B12 449 pg/mL (232-1245) 10/18/24 03:38 Folate 12.7 ng/mL (4.5-32.2) 10/19/24 02:50 TSH 0.78 uIU/mL (0.27-4.20) 10/18/24 03:38 Urine Color Yellow (Yellow) 10/17/24 21:11 Urine Appearance Clear (CLEAR) 10/17/24 21:11 Urine pH 6.0 (5-7) 10/17/24 21:11 Ur Specific [place] 1.010 (1.005-1.030) 10/17/24 21:11 Urine Protein 3+ (Negative) A 10/17/24 21:11 Urine Glucose (UA) Trace (Normal) H 10/17/24 21:11 Urine Ketones Negative (Negative) 10/17/24 21:11 Urine Blood Negative (Negative) 10/17/24 21:11 Urine Nitrate Negative (Negative) 10/17/24 21:11 Urine Bilirubin Negative (Negative) 10/17/24 21:11 Urine Urobilinogen 1.0 mg/dL (Negative) 10/17/24 21:11 Ur Leukocyte Esterase Negative (Negative) 10/17/24 21:11 Urine RBC 0-2 /hpf (0-2) 10/17/24 21:11 Urine WBC 0-5 /hpf (0-5) 10/17/24 21:11 Ur Squamous Epith Cells 0-5 /hpf (0-5) 10/17/24 21:11 Amorphous Sediment Not Reportable 10/17/24 21:11 Urine Bacteria None seen /hpf (NONE) 10/17/24 21:11 Hyaline Casts 4.52 /lpf 10/17/24 21:11 Ur Random Creatinine 47 mg/dL (20-320) 10/18/24 15:40 U Random Total Protein 207 mg/dL (5-25) H 10/18/24 15:40 Ur Random Sodium 50 mmol/L 10/18/24 15:40 Ur Random Chloride 52 mmol/L 10/18/24 15:40 Protein/Creatinin Ratio 4404 mg/g creat (25-148) H 10/18/24 15:40 Protein/Creat Ratio 24h 4.404 (0.025-0.148) H 10/18/24 15:40 Vitals Last Vital Signs Temp 98.2 F 10/21/24 07:30 Pulse 75 10/21/24 07:30 Resp 19 H 10/21/24 07:30 BP 184/83 10/21/24 07:30 Pulse Ox 95 10/21/24 07:30 O2 Del Method BiPAP 10/21/24 04:31 O2 Flow Rate 1 10/18/24 12:00 Discharge Plan Discharge Patient Disposition: Home Condition: Stable Prescriptions: New hydralazine 50 mg tablet 50 mg PO TID Qty: 90 0RF metoprolol succinate 50 mg tablet extended release 24 hr 50 mg PO DAILY Qty: 30 0RF Continued cyclosporine 100 mg capsule 100 mg PO BID Qty: 60 11RF nitroglycerin 0.4 mg tablet, sublingual 0.4 mg sublingual Q5M PRN (Reason: chest pain) Qty: 20 11RF Rx Instructions: do not exceed 3 doses per episode finasteride 5 mg tablet 5 mg PO DAILY sodium bicarbonate 650 mg tablet 650 mg PO BID aspirin 81 mg tablet 81 mg PO DAILY cholecalciferol (vitamin D3) 25 mcg (1,000 unit) capsule 25 mcg PO DAILY Adult 50 Plus Probiotic 4 billion cell capsule 4,000 mmu cells PO DAILY Rx Instructions: administer with a meal ascorbic acid (vitamin C) 500 mg capsule 500 mg PO DAILY rosuvastatin 20 mg tablet 20 mg PO DAILY Qty: 90 3RF levothyroxine 175 mcg tablet 175 mcg PO DAILY Qty: 90 3RF Rx Instructions: TAKE 1 TABLET BY MOUTH EVERY DAY allopurinol 300 mg tablet See Rx Instructions .ROUTE .COMPLEX Qty: 90 3RF Dose Instruction: TAKE 1 TABLET BY MOUTH EVERY DAY FOR GOUT Rx Instructions: TAKE 1 TABLET BY MOUTH EVERY DAY FOR GOUT potassium chloride 20 mEq tablet extended release See Rx Instructions .ROUTE .COMPLEX Qty: 180 3RF Dose Instruction: TAKE 1 TABLET BY MOUTH TWICE DAILY NEEDED IF TAKING LASIX Rx Instructions: TAKE 1/2 TABLET BY MOUTH TWICE DAILY NEEDED IF TAKING LASIX amlodipine 10 mg tablet See Rx Instructions .ROUTE .COMPLEX Qty: 30 11RF Dose Instruction: TAKE 1 TABLET BY MOUTH DAILY Rx Instructions: TAKE 1 TABLET BY MOUTH DAILY Changed furosemide 40 mg tablet 40 mg PO DAILY Qty: 120 11RF Held Jardiance 10 mg tablet 10 mg PO DAILY Hold Instructions: see pcp Discontinued hydralazine 100 mg tablet See Rx Instructions .ROUTE .COMPLEX Qty: 270 3RF Dose Instruction: TAKE 1 TABLET BY MOUTH THREE TIMES DAILY Rx Instructions: TAKE 1 TABLET BY MOUTH THREE TIMES DAILY metolazone 2.5 mg tablet See Rx Instructions .ROUTE .COMPLEX Qty: 90 3RF Dose Instruction: TAKE 1 TABLET BY MOUTH DAILY Rx Instructions: TAKE 1 TABLET BY MOUTH DAILY metoprolol tartrate 100 mg tablet 100 mg PO BID Discharge Order = DC NOW: Discharge Order (Routine); Ordered 10/21/24 Ordered By: Echo Cardenas Referrals: Patience Segovia MD [Referring] - 1-3 days Referral Note: Patient will need to call on Wednesday to make appt due to weekend discharge Kaleb Daniel MD [Primary Care Provider, Family Practice] - 10/26/24 11:20 am Discharge Diet: As Directed Discharge Activity: Resume usual activity Patient Instructions: Metoprolol (By mouth), Hydralazine (By mouth), Chronic Kidney Disease (DC), Opioid Safety, Patient Portal & Tenisha Instructions Discharge Attestations Time Spent in Discharge Care*: greater than 30 min Quality Metrics Clinical Quality Measures [ No reported AMI, CVA or VTE this stay] Coding Level of Care Code Acute Code for Chg Fwd Diagnoses Acute on chronic renal insufficiency N28.9; N18.9
[2024-10-21] MEDS: metoprolol succinate ER (24 HR) 50 mg Tablet PO (10:39)
[2024-10-21 12:00] VITALS: BP 162/74
[2024-10-21 12:11] VITALS: BP 162/74
--- NOTE | 2024-10-21 12:22 | PC.NURSE ---
Patient discharged to home. Instruction provided regarding follow up needs, medications with changes and CKD. Patient verbalized complete understanding. Patient denies pain or needs. New medications transmitted to [facility]. No distress observed. Patient to be taken by wheelchair to private vehicle
[2024-10-21 12:30] VITALS: BP 162/74; RESP 20
--- NOTE | 2024-10-21 15:29 | PM.PN ---
Subjective Subjective: feels better Medications: Reviewed: Yes Vitals/I&O/Wt Last Vital Signs Temp 98.2 F 10/21/24 07:30 Pulse 75 10/21/24 07:30 Resp 20 H 10/21/24 12:30 BP 162/74 10/21/24 12:30 Pulse Ox 95 10/21/24 07:30 O2 Del Method BiPAP 10/21/24 04:31 O2 Flow Rate 1 10/18/24 12:00 10/21/24 10/21/24 10/21/24 06:59 14:59 22:59 Intake Total 980 / 1100 480 / 480 Output Total 650 / 3200 Balance 330 / -2100 480 / 480 Weight last 48 hrs Weight 102.285 kg Weight 103.827 kg Physical Exam Narrative: awake , alert no distress PEERLA S1S2 RRR per report Lungs clear per report abd soft , non tender No edema Data 10/21/24 03:02 10/21/24 03:02 A&P Assessment and plan 1. Acute on chronic renal insufficiency: Plan: 1. Acute on chronic kidney disease stage IV: Baseline creatinine seems to be in the 3 range and now has severe DENAE with a creatinine of 5.0, metabolic alkalosis. DENAE likely due to recent increases in diuretics along with poor p.o. intake. - Cr improved - resume diuretics @ DC , - lasix 40 mg daily and Kcla 10 meq BID -Renal US : medical renal dz and no hydronephrosis - On urine analysis he was noted to have 3+ protein no microscopic hematuria, has nonnephrotic range proteinuria in the past. - Prior ANCA and AYE was negative, prior SPEP UPEP was also - Will repeat UPCR, and repeat SPEP and UPEP, check PLA2R antibody if available. 2. Hypokalemia, replete aggressively 3. Metabolic alkalosis, mild, likely contraction alkalosis from recent diuresis, 4. History of hypertension, holding Lasix and metolazone, continue hydralazine Patient evaluated using A/V cart. Time spent 40 minutes. PDMP PDMP Reviewed: Not Reviewed Attestations Medical Necessity Statement*: per [facility] Coding Level of Care Code Acute Code for Chg Fwd Diagnoses Acute on chronic renal insufficiency N28.9; N18.9
[2024-10-24 14:55] LABS: Albumin,Urine Random 62 %; Alpha-1-Globulins Urine Random 10 %; Alpha-2-Globulins Urine Random 8 %; Beta-Globulin,Urine Random 13 %; Gamma Globulin,Urine Random 8 %
[2024-10-24 20:39] LABS: ALPHA 1 GLOBULIN 0.5 g/dL (0.2-0.3); ALPHA 2 GLOBULIN 1.1 g/dL (0.5-0.9); BETA 1 GLOBULIN 0.4 g/dL (0.4-0.6); BETA 2 GLOBULIN 0.5 g/dL (0.2-0.5)
== END 2024-10-21 12:31 | disposition home or self-care (01) | DRG 683 ==
LOC: ER 18:02 → CSU 18:05
PROVIDERS: Hospitalist; Student in an Organized Health Care Education/Training Program; Admitting Provider Internal Medicine; Emergency Provider Emergency Medicine; PCP Family Medicine; Visit Provider Internal Medicine
DX: N17.9 Acute kidney failure, unspecified (principal); E87.20 Acidosis, unspecified; E87.3 Alkalosis; E87.6 Hypokalemia; N18.4 Chronic kidney disease, stage 4 (severe); T50.2X5A Adverse effect of carbonic-anhydrase inhibitors, benzothiadiazides and other diuretics, initial encounter; Y92.9 Unspecified place or not applicable; I50.9 Heart failure, unspecified; E86.0 Dehydration; E78.5 Hyperlipidemia, unspecified; M10.9 Gout, unspecified; I13.10 Hypertensive heart and chronic kidney disease without heart failure, with stage 1 through stage 4 chronic kidney disease, or unspecified chronic kidney disease; Z79.82 Long term (current) use of aspirin
CPT/HCPCS: 36415; 51798; 71045; 76770; 80048; 80053; 81000; 81001; 82436; 82570; 82607; 82746; 83036; 83540; 83550; 83605; 83690; 83735; 83880; 84100; 84155; 84156; 84165; 84166; 84300; 84443; 84484; 85025; 85610; 85730; 86140; 87086; 93005; 96360; 96361; 96372; 99285; J1644; J3480; J3490; J7030; J7040; J7502; J9999; Q3014

== ENCOUNTER 2024-10-26 11:40 | Outpatient (CLI) | payer MEDICARE, SELFPAY ==
[2024-10-26 12:40] LABS: Albumin Level 3.6 g/dL (3.5-5.2); Anion Gap 16.3 (5-19); Blood Urea Nitrogen 43 mg/dL (8-23); Calcium 8.6 mg/dL (8.5-10.5); Carbon Dioxide 29 mmol/L (22-29); Chloride 98 mmol/L (98-107); Glucose 93 mg/dL (65-115); Potassium 3.3 mmol/L (3.5-5.1); Sodium 140 mmol/L (136-145)
== END 2024-10-26 11:41 | disposition home or self-care (01) ==
LOC: LAB 11:44
PROVIDERS: Family Provider Registered Nurse; PCP Family Medicine; Visit Provider Registered Nurse
DX: N18.4 Chronic kidney disease, stage 4 (severe) (principal)
CPT/HCPCS: 80069

== ENCOUNTER 2024-11-07 12:20 | Outpatient (CLI) | payer MEDICARE, SELFPAY ==
[2024-11-07 14:37] LABS: Anion Gap 18.0 (5-19); Blood Urea Nitrogen 36 mg/dL (8-23); Calcium 8.7 mg/dL (8.5-10.5); Carbon Dioxide 24 mmol/L (22-29); Chloride 102 mmol/L (98-107); Glucose 119 mg/dL (65-115); Osmolality Calculated 299 mOsm/kg (285-295); Potassium 4.0 mmol/L (3.5-5.1); Sodium 140 mmol/L (136-145)
[2024-11-08 13:26] LABS: Cyclosporine A Trough Level 85 mcg/L
== END 2024-11-07 12:21 | disposition home or self-care (01) ==
PROVIDERS: PCP Family Medicine; Visit Provider Registered Nurse
DX: N05.1 Unspecified nephritic syndrome with focal and segmental glomerular lesions (principal); D84.9 Immunodeficiency, unspecified
CPT/HCPCS: 36415; 80048; 80158

== ENCOUNTER 2024-11-20 08:01 | Outpatient (CLI) | payer MEDICARE, SELFPAY ==
[2024-11-20 09:03] LABS: Hematocrit 35.7 % (37-53); Hemoglobin 11.70 g/dL (11.27-16.99); Mean Corpuscular HGB Conc 32.8 g/dL (30-55); Mean Corpuscular Hemoglobin 29.3 pg (27-33); Mean Corpuscular Volume 89.3 fl (82-101); Nucleated Red Blood Cells % 0 %; Platelet Count 281 10^3/cmm (157-399); Red Blood Count 4.00 10^6/uL (3.85-5.65); White Blood Count 10.10 10^3/uL (3.29-11.43)
[2024-11-20 09:32] LABS: Albumin Level 4.0 g/dL (3.5-5.2); Anion Gap 17.1 (5-19); Blood Urea Nitrogen 36 mg/dL (8-23); Calcium 9.1 mg/dL (8.5-10.5); Carbon Dioxide 23 mmol/L (22-29); Chloride 105 mmol/L (98-107); Glucose 103 mg/dL (65-115); Potassium 4.1 mmol/L (3.5-5.1); Sodium 141 mmol/L (136-145)
[2024-11-20 09:32] LABS: Creatinine Urine, Random 82 mg/dL (39-259)
[2024-11-20 09:48] LABS: Microalbum Creatinine Ratio Ur 3402 mg/dL (0-20)
[2024-11-21 14:46] LABS: Cyclosporine A Trough Level 186 mcg/L
[2024-11-24 23:14] LABS: PTH Related Peptide (Protein) 13 pg/mL (11-20)
== END 2024-11-20 08:02 | disposition home or self-care (01) ==
LOC: LAB 08:04
PROVIDERS: PCP Family Medicine; Visit Provider Family Medicine
DX: E55.9 Vitamin D deficiency, unspecified (principal); M79.89 Other specified soft tissue disorders; N18.30 Chronic kidney disease, stage 3 unspecified
CPT/HCPCS: 36415; 80069; 80158; 82044; 82306; 82310; 82542; 83970; 85025

== ENCOUNTER 2024-12-08 08:50 | Outpatient (CLI) | payer MEDICARE, SELFPAY ==
[2024-12-08 11:35] LABS: Anion Gap 19.2 (5-19); Blood Urea Nitrogen 35 mg/dL (8-23); Calcium 9.0 mg/dL (8.5-10.5); Carbon Dioxide 22 mmol/L (22-29); Chloride 104 mmol/L (98-107); Glucose 94 mg/dL (65-115); Osmolality Calculated 300 mOsm/kg (285-295); Potassium 4.2 mmol/L (3.5-5.1); Sodium 141 mmol/L (136-145)
== END 2024-12-08 08:51 | disposition home or self-care (01) ==
LOC: LAB 08:55
PROVIDERS: PCP Family Medicine; Visit Provider Internal Medicine Nephrology
DX: N18.31 Chronic kidney disease, stage 3a (principal)
CPT/HCPCS: 36415; 80048

== ENCOUNTER 2025-01-17 08:18 | Outpatient (CLI) | payer MEDICARE, SELFPAY ==
[2025-01-17 09:41] LABS: Hematocrit 36.8 % (37-53); Hemoglobin 12.10 g/dL (11.27-16.99); Mean Corpuscular HGB Conc 32.9 g/dL (30-55); Mean Corpuscular Hemoglobin 28.6 pg (27-33); Mean Corpuscular Volume 87.0 fl (82-101); Nucleated Red Blood Cells % 0 %; Platelet Count 302 10^3/cmm (157-399); Red Blood Count 4.23 10^6/uL (3.85-5.65); White Blood Count 10.39 10^3/uL (3.29-11.43)
[2025-01-17 09:59] LABS: Creatinine Urine, Random 66 mg/dL (39-259)
[2025-01-17 10:03] LABS: Albumin Level 4.0 g/dL (3.5-5.2); Anion Gap 20.0 (5-19); Blood Urea Nitrogen 41 mg/dL (8-23); Calcium 9.1 mg/dL (8.5-10.5); Carbon Dioxide 22 mmol/L (22-29); Chloride 104 mmol/L (98-107); Glucose 104 mg/dL (65-115); Osmolality Calculated 304 mOsm/kg (285-295); Potassium 4.0 mmol/L (3.5-5.1); Sodium 142 mmol/L (136-145)
[2025-01-17 10:15] LABS: Microalbum Creatinine Ratio Ur 5242 mg/dL (0-20)
== END 2025-01-17 08:19 | disposition home or self-care (01) ==
PROVIDERS: PCP Family Medicine; Visit Provider Registered Nurse
DX: N18.4 Chronic kidney disease, stage 4 (severe) (principal); D84.9 Immunodeficiency, unspecified; N04.9 Nephrotic syndrome with unspecified morphologic changes
CPT/HCPCS: 36415; 80048; 80069; 80158; 82044; 85025

== ENCOUNTER 2025-02-22 08:04 | Outpatient (CLI) | payer MEDICARE, SELFPAY ==
[2025-02-22 09:20] LABS: Anion Gap 17.6 (5-19); Blood Urea Nitrogen 35 mg/dL (8-23); Calcium 9.1 mg/dL (8.5-10.5); Carbon Dioxide 24 mmol/L (22-29); Chloride 103 mmol/L (98-107); Glucose 138 mg/dL (65-115); Osmolality Calculated 302 mOsm/kg (285-295); Potassium 3.6 mmol/L (3.5-5.1); Sodium 141 mmol/L (136-145)
[2025-02-22 09:26] LABS: Creatinine Urine, Random 95 mg/dL (39-259)
[2025-02-22 11:29] LABS: Microalbum Creatinine Ratio Ur 611 mg/dL (0-20)
== END 2025-02-22 08:05 | disposition home or self-care (01) ==
LOC: LAB 08:07
PROVIDERS: PCP Family Medicine; Visit Provider Registered Nurse
DX: N18.4 Chronic kidney disease, stage 4 (severe) (principal); N05.1 Unspecified nephritic syndrome with focal and segmental glomerular lesions
CPT/HCPCS: 36415; 80048; 82044

== ENCOUNTER 2025-03-05 07:45 | Emergency (ER) | payer MEDICARE, SELFPAY ==
--- OUTSIDE RECORDS SUMMARY | 2024-12-27 02:30 | XMS_ITS ---
Author Organization [facility] Address [address] [place] [address] Care Team Providers Care Bath Steward/Stewardess Name Role Phone Kaleb Daniel Primary Care Provider Kaleb Morales Unavailable [phone] REASON FOR VISIT 6m Cysto Encounters Encounter Location Date Provider Diagnosis [facility] [address] [facility] [address] [place] [address] 12/27/2024 Kaleb Tidwell Plan Of Treatment Next Appt Details Provider Name:Kaleb sanders, 08/08/2025 02:10:00 PM, [address] , [facility] [address], [place], [address], Progress Notes * WILBUR LY WDOB: 9 (74 yo M)Acc No.[id number]:12/27/2024 Patient: Constantin CASTANONWILBUR Darcy Provider: Julianna Tidwell MD :1950 A ge:74 Y S ex:Male Date:12/27/2024 Address:[address] [place], [place] [phone] Pcp:Kaleb Daniel Subjective: * Chief Complaints: * 6 m Cysto Billing Information: * Procedure Codes: * Electronic signature of Amalia Tidwell MD on 03/05/2025 at 07:56 AM GRADUATE NURSE Sign off status: Pending * Provider: Julianna Tidwell MD Date: Generated for Kitty jeffrey/Alonzo/Chicosmitting on: 1 07:56 AM GRADUATE NURSE
--- OUTSIDE RECORDS SUMMARY | 2025-01-16 02:40 | XMS_ITS ---
Author Organization [facility] Address [address] [place] [address] Care Team Providers Care School Patrol Name Role Phone Kaleb Daniel Primary Care Provider Kaleb Morales Unavailable [phone] REASON FOR VISIT 6 m cysto Encounters Encounter Location Date Provider Diagnosis [facility] [address] [facility] [address] [place] [address] 01/16/2025 Kaleb Tidwell Plan Of Treatment Next Appt Details Provider Name:Kaleb sanders, 08/08/2025 02:10:00 PM, [address] , [facility] [address], [place], [address], Progress Notes * ALIYAH WILBUR WDOB: 9 (74 yo M)Acc No.[id number]:01/16/2025 Patient: JAYME SKYALD Darcy Provider: Julianna Tidwell MD :1950 A ge:74 Y S ex:Male Date:01/16/2025 Address:[address] [place], [place] [phone] Pcp:Kaleb Daniel Subjective: * Chief Complaints: * 6 m cysto Billing Information: * Procedure Codes: * Electronic signature of Amalia Tidwell MD on 03/05/2025 at 07:56 AM MANIPULATIVE THERAPY SPECIALIST Sign off status: Pending * Provider: Julianna Tidwell MD Date: 03/18/2024 Generated for Kitty jeffrey/Alonzo/Richarditting on: 1 07:56 AM MANIPULATIVE THERAPY SPECIALIST
--- NOTE | 2025-03-05 07:48 | XR_ITS ---
WS: [id number] Portable AP upright chest, 03/05/2025 Clinical Data: cp Comparison: Portable chest, 10/17/2024 Findings: No nodules, masses or effusions are seen. The heart is enlarged. The pulmonary vascularity is not increased. No pneumonia or pneumothorax is seen. The aortic arch and descending thoracic aorta show tortuosity. There are monitor leads on the chest wall. There is an old right clavicular fracture. XR/XR chest 1V portable [id number] Impression: Cardiomegaly and atherosclerosis.
--- NOTE | 2025-03-05 07:48 | ECG_ITS ---
[facility] Date: 2025-03-05 Pat Name: Emanuel Mcneal Department: Room: Gender: Male Fabrication Welder: : 1950 Requested By: Sara Haas Order Number: [id number] Yosvany MD: Nikhil Mar M.D. Measurements Intervals [place] Rate: 76 P: 0 WY: 0 QRS: 13 QRSD: 114 T: 131 QT: 419 QTc: 474 Interpretive Statements Normal Sinus Rhythm TECHNICALLY POOR TRACING INTRAVENTRICULAR CONDUCTION DELAY [110+ ms QRS DURATION] ST DEVIATION AND MODERATE T-WAVE ABNORMALITY, CONSIDER LATERAL ISCHEMIA [-0.1+ mV T-WAVE IN I/aVL/V5/V6] Compared to ECG 10/17/2024 15:08:24 QTC PROLONGATION HAS DECREASED Electronically Signed On 03-08-2025 16:33:50 PARTS COUNTER SALESPERSON by Nikhil Mar M.D. [email or web address]
[2025-03-05 07:50] VITALS: BP 185/68; PULSE 79; RESP 16; TEMP 36.8; O2SAT 96; BMI 30.1
--- OUTSIDE RECORDS SUMMARY | 2025-03-05 07:56 | XMS_ITS | Encounter Summary ---
Author Organization [facility] Address [address] [place] [address] Care Team Providers Care Machine Setter Name Role Phone Tim Yan MD, Александр Peterson Primary Care Provider Reason for Referral * Outpatient Services (Routine) - Closed Specialty Diagnoses / Procedures Referred By Shirlene t Referred To Contact Diagnoses Congenital nephrotic syndrome Essential hypertension, benign Procedures US BIOPSY ABDOMEN Johnny Faust MD Referral ID Status Reason Start Date Expiration Date Visits Re quested Visits Authorized [id number] Closed 03/10/2017 04/10/2018 1 1 RDOUS MATERIALS TANKER DRIVER Encounter Details Date Type Department Care Team (Latest Contact Info) Description 03/10/2017 Ancillary Orders [facility] Ultrasound [address] [place] [phone] Johnny Faust MD NO ADDRESS ON FILE Congenital nephrotic syndrome; Essential hypertension, benign Social History Tobacco Use Types Packs/Day Years Used Date Smoking Tobacco: Never Assessed Sex and Gender Information Value Date Recorded Sex Assigned at Not on file Legal Sex Male 2:38 AM HAZARDOUS MATERIALS TANKER DRIVER Gender Identity Not on file Sexual Orientation Not on file documented as of this encounter Plan of Treatment Not on file documented as of this encounter Results * US BIOPSY ABDOMEN (03/19/2017 12:11 PM HAZARDOUS MATERIALS TANKER DRIVER) Anatomical Region Laterality Modality Abdomen Ultrasound 03/19/2017 12:1 2 PM HAZARDOUS MATERIALS TANKER DRIVER Impressions 03/19/2017 3:14 PM HAZARDOUS MATERIALS TANKER DRIVER IMPRESSION: Please see below. Date: 03/19/2017 12:11 PM Clinical History: Congenital nephrotic syndrome,Essential hypertension, benign Production Material Coordinator: Dr. Christensen Moderate (conscious) sedation for this procedure was performed with continuous physician supervision. Medical history, physical exam, drug dosages, routes of drug administration, monitoring data, and precise times of service are documented in the medical record on the [facility]-approved form, 'Sedative/Analgesic Administration for Diagnostic and Therapeutic Procedures'. Please see nursing flow sheets for dosage and time. PROCEDURE AND FINDINGS: Successful ultrasound guided [place] kidney biopsy. Preliminary pathology report deems the [...] for evaluation. ++++++++++++++++++++ IMPRESSION: Successful ultrasound guided [place] kidney biopsy with results pending. Narrative Procedure Note Howard Christensen MD - 03/19/2017 IMPRESSION: Please see below. Date: 03/19/2017 12:11 PM Clinical History: Congenital nephrotic syndrome,Essential hypertension, benign Production Material Coordinator: Dr. Christensen Moderate (conscious) sedation for this procedure was performed with continuous physician supervision. Medical history, physical exam, drug dosages, routes of drug administration, monitoring data, and precise times of service are documented in the medical record on the [facility]-approved form, 'Sedative/Analgesic Administration for Diagnostic and Therapeutic Procedures'. Please see nursing flow sheets for dosage and time. PROCEDURE AND FINDINGS: Successful ultrasound guided [place] kidney biopsy. Preliminary pathology report deems the [...] for evaluation. ++++++++++++++++++++ IMPRESSION: Successful ultrasound guided [place] kidney biopsy with results pending. us Johnny Faust MD US ORDERABLES Final Result documented in this encounter Visit Diagnoses Diagnosis Congenital nephrotic syndrome Nephrotic syndrome with unspecified pathological lesion in kidney Essential hypertension, benign Congenital nephrotic syndrome Nephrotic syndrome with unspecified pathological lesion in kidney Essential hypertension, benign documented in this encounter Care Teams Machine Setter Relationship Specialty Start Date End Date Александр Dumont Jr., MD [address] [place] [address] PCP - General Family Practice 03/19/17 documented as of this encounter
--- OUTSIDE RECORDS SUMMARY | 2025-03-05 07:56 | XMS_ITS | Encounter Summary ---
Author Organization [facility] Address [address] [address] Phone Care Team Providers Care Tobacco Wetter Name Role Phone Kaleb Daniel MD Primary Care Provider [phone] Reason for Visit * Reason Comments Med Refill Encounter Details Date Type Department Care Team (Late Contact Info) Description 11/19/2022 Refill [facility] [address] [address] Emily Mason NP [address] [facility] [address] [place] [address] Social History Tobacco Use Types Packs/Day Years Used Date Smoking Tobacco: Former Cigarettes 0 Q uit: 1998 Smokeless Tobacco: Never Alcohol [...] Department Care Team (Late Contact Info) Description 04/18/2025 9:30 AM ASSESSMENT NURSE Office Visit [facility] [address] [place] [address] Delmis Villanueva NP [address] [facility] [address] [place] [address] documented as of this encounter Visit Diagnoses Not on filedocumented in this encounter Care Teams Tobacco Wetter Relationship Specialty Start Date End Date Kaleb Daniel MD [address] [place] [phone] PCP - General Family Medicine 05/24/24 documented as of this encounter
--- OUTSIDE RECORDS SUMMARY | 2025-03-05 07:56 | XMS_ITS | Encounter Summary ---
Author Organization [facility] Address [address] [place] [address] Phone Care Team Providers Care Sheet Ironworker Name Role Phone Kaleb Daniel MD Primary Care Provider [phone] Reason for Visit * Reason Comments Med Refill Encounter Details Date Type Department Care Team (Late st Contact Info) Description 01/15/2023 Refill [facility] [address] [place] [address] Emily Mason NP [address] [place] [address] Hypertensive chronic kidney disease with [...] (Late Contact Info) Description 04/18/2025 9:30 AM PEDIATRIC DERMATOLOGIST Office Visit [facility] [address] [place] [phone] Delmis Villanueva, MARINE EQUIPMENT DESIGN ENGINEER [address] [facility] [address] [place] [phone] documented as of this encounter Visit Diagnoses Diagnosis Hypertensive chronic kidney disease with stage 1 through stage 4 chronic kidney disease, or unspecified chronic kidney disease Nephrotic syndrome Stage 3a chronic kidney disease (HCC) documented in this encounter Care Teams Sheet Ironworker Relationship Specialty Start Date End Date Kaleb Daniel MD [address] [place] [phone] PCP - General Family Medicine 05/24/24 documented as of this encounter
--- OUTSIDE RECORDS SUMMARY | 2025-03-05 07:56 | XMS_ITS | Clinical Summary ---
Author Organization [facility] Facility Address [address] [place] [address] Care Team Providers Care Sewing Machine Operator Name Role Phone Kaleb Daniel MD Primary Care Provider [phone] Allergies Active Allergy Reactions Criticality Noted Date Comments Valsartan Swelling High 10/17/2024 facial and body edema Medications * This document contains information received [...] mouth 1 (one) time each day Active nitroglycerin (NITROSTAT) 0.[address] 0.4 mg under the tongue every 5 (five) minutes if needed for chest pain 08/26/19 24 Active finasteride (PROSCAR) 5 MG tablet Take 5 mg by mouth 1 (one) time each day 07/20/19 24 Active sodium bicarbonate 650 MG tablet [...] every morning 90 tablet 07/18/19 25 Active rosuvastatin (CRESTOR) 20 MG tablet Take 20 mg by mouth 1 (one) time each day 09/07/19 25 Active potassium chloride (K-TAB) 20 MEQ CR tablet Take 20 mEq by mouth in the morning and 20 mEq in the evening. Active furosemide (Lasix) 40 MG tablet Take 1 tablet (40 mg total) by mouth in the morning and 1 tablet (40 mg total) in the evening. 60 tablet 11 11/01/19 25 026 Active donepezil (ARICEPT) 5 MG tablet Take 5 mg by mouth every night 11/27/19 25 Active Donanemab-azbt (Kisunla) 350 MG/20ML solution Infuse 5 mL into a venous catheter every 30 (thirty) days Active levothyroxine (SYNTHROID, LEVOTHROID) 75 MCG tablet Take 75 mcg by mouth 1 (one) time each day Active Ascorbic Acid (vitamin C) 500 MG tablet Take 500 mg by mouth 1 (one) time each day Active NIFEdipine XL (PROCARDIA XL) 30 MG 24 hr tabletIndicatio ns:Essential hypertension,Ne phrotic syndrome,Stage 3b chronic kidney disease (HCC) Take 3 tablets (90 mg total) by mouth 1 (one) time each day Do not crush, chew, or split. 90 tablet 1 02/14/20 25 026 Active metoprolol succinate XL (TOPROL-XL) 100 MG 24 hr tablet Take 2 tablets (200 mg total) by mouth 1 (one) time each day 180 tablet 1 02/20/20 25 026 Active metoprolol succinate XL (Toprol XL) 100 MG 24 hr tablet Take 2 tablets (200 mg total) by mouth 1 (one) time each day Do not crush or chew. 60 tablet 1 01/08/20 25 025 Discontinued NIFEdipine XL (PROCARDIA XL) 30 MG 24 hr tablet Take 2 tablets (60 mg total) by mouth 1 (one) time each day Do not crush, chew, or split. 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 [address] [place] [address] Delmis Villanueva NP 02/09/2025 Telephone [facility], [facility] [address] [place] [address] Patience Segovia MD 02/09/2025 Documentation Only [facility], [facility] [address] [place] [address] Kizzy Mahan MA 01/24/2025 Patient Outreach [facility], [facility] [address] [place] [address] Cindy Carpenter 01/23/2025 1:00 PM GEAR GRINDER Office Visit [facility], [address] [address] Delmis Villanueva NP Vitamin D deficiency, not otherwise specified (Primary Dx); Chronic kidney disease stage 4 (HCC); Chronic metabolic acidosis; Essential hypertension; Focal segmental glomerulosclerosis; Hypokalemia; Immunosuppression (HCC); Nephrotic syndrome 01/23/2025 Telephone [facility], [facility] [address] [place] [address] Patience Segovia MD 01/23/2025 Patient Outreach [facility], [facility] [address] [place] [address] Pauline Cindy 01/19/2025 Documentation Only [facility] [address] [place] [address] Davina Grissom MA 01/18/2025 Documentation Only [facility] [address] [place] [address] Camasse, Monica 01/17/2025 Documentation Only [facility] [address] [place] [address] Camasse, Monica 01/17/2025 Documentation Only [facility] [address] [place] [address] Camasse, Monica 01/16/2025 Telephone [facility], [address] [address] Camasse, Monica 01/07/2025 Orders Only [facility] [address] [place] [address] Delmis Villanueva NP 01/05/2025 Documentation Only [facility] [address] [place] [address] Kizzy Mahan MA 01/05/2025 Refill [facility] [address] [place] [address] Emily Mason NP 01/05/2025 Telephone [facility] [address] [place] [address] Anabel Howard MA 12/26/2024 Documentation Only [facility] [address] [place] [address] Glenis Grissom MA 12/26/2024 Telephone [facility] [address] [place] [address] Anabel Howard MA 12/25/2024 Orders Only [facility], [facility] [address] [facility] [place] [address] Emily Mason NP 12/25/2024 Documentation Only [facility], [facility] [address] [place] [address] Amy Hernandez LPN 12/08/2024 Telephone [facility], [facility] [address] [place] [address] Davina Grissom MA 12/06/2024 Documentation Only [facility], [facility] [address] [place] [address] Anabel Howard MA 12/06/2024 Patient Outreach [facility], [facility] [address] [address] Cindy Carpenter from Last 3 Months Immunizations Immunization Administration [...] 0 Q uit: 2000 Smokeless Tobacco: Never Tobacco [...] Sign Reading Time Taken Comments Blood Pressure 164/66 01/23/2025 12:56 PM GEAR GRINDER Pulse 72 01/23/2025 12:56 PM GEAR GRINDER Temperature 36.3 C (97.3 F) 10/26/2019 9:15 AM CDT Respiratory Rate - - Oxygen Saturation 96% 10/31/2024 10:52 AM CDT Inhaled Oxygen Concentration - - Weight 106 kg (233 lb 9.6 oz) 01/23/2025 12:56 P M GEAR GRINDER Height 172.7 cm (5' 8 ) 01/23/2025 12:56 PM GEAR GRINDER Body Mass Index 35.52 01/23/2025 12:56 PM GEAR GRINDER Plan of Treatment Upcoming Encounters Date Type Department Care Team (Late st Contact Info) Description 04/18/2025 9:30 AM GEAR GRINDER Office Visit [facility] [address] [place] [address] Delmis Villanueva, MATHEUS [address] [facility] [address] [place] [address] Health Maintenance Due Date Last Done Comments Pneumococcal Vaccine: 50+ Years (2 of 2 - PPSV23, PCV20, or PCV21) 12/10/2016 10/15/2016 Diabetes: Ophthalmology Exam 04/06/2024 Diabetes: Pedal Pulse Checked 04/06/2024 Diabetes: Sensory Foot Exam 04/06/2024 Diabetes: Visual Foot Exam 04/06/2024 Diabetes: Hemoglobin A1C 04/08/2024 01/07/2024 Influenza Vaccine (#1) 2024 2, 12/13/2018, 12/15/2016 Pneumococcal Vaccine: Peds ( 0 to 5 Years) and At-Risk Patients (6 to 49 Years) Discontinued 10/15/2016 Hepatitis B Vaccine Aged Out No longe r eligible based on patient's age to complete this topic Procedures Procedure Name Priority Date/Time Associated Diagnosis Comments URINE ALBUMIN / CREATININE RATIO Routine 01/17/2025 9:23 AM GEAR GRINDER Nephrotic syndrome RENAL FUNCTION PANEL Routine 01/17/2025 9:23 AM GEAR GRINDER Focal segmental glomerulosclerosis Chronic kidney disease stage 4 (HCC) CYCLOSPORINE LEVEL Routine 01/17/2025 Immunosuppression (HCC) HEMOGLOBIN A1C Routine 01/07/2024 Stage 3b chronic kidney disease (HCC) from Last 3 Months or Most Recently Relevant to Health Maintenance Results * Urine Albumin / Creatinine Ratio (01/17/2025 9:23 AM GEAR GRINDER) Creatinine, Urine Random 66 mg/dL PRINT/EXTERNA L (NON-INTERFAC ED LABS) Microalbumin 346 ug/dL PRINT/E XTERNA L (NON-INTERFAC ED LABS) Microalb/Creat Ratio, Ur 5,242 mg/dL PRINT/EXTERNA L (NON-INTERFAC ED LABS) Urine Urine specimen obtained by clean catch procedure / Unknown 01/17/2025 9:23 AM GEAR GRINDER us Delmis Villanueva NP LAB URINE ORDERABLES Final Resu lt Performing Organization Address [facility] de Phone Number PRINT/EXTERNAL (NON-INTERFACED LABS) * Renal Function Panel (01/17/2025 9:23 AM GEAR GRINDER) Glucose 104 mg/dL PRINT/EXTE RNAL (NON-INTERFACE D LABS) BUN 41 mg/dL PRINT/EXTE RNAL (NON-INTERFACE D LABS) Creatinine 3.7 mg/dL PRINT/EXT ERNAL (NON-INTERFACE D LABS) Sodium 142 mEq/L PRINT/EXTE RNAL (NON-INTERFACE D LABS) Potassium 4.0 mEq/L PRINT/EXTE RNAL (NON-INTERFACE D LABS) Chloride 104 PRINT/EXTE RNAL (NON-INTERFACE D LABS) Carbon Dioxide 22 mmol/L PRINT /EXTERNAL (NON-INTERFACE D LABS) Calcium 9.1 mg/dL PRINT/EXTE RNAL (NON-INTERFACE D LABS) Phosphorus, Serum 4.1 mg/dL PRINT/EXTERNAL (NON-INTERFACE D LABS) Albumin (Blood) 4.0 g/dL PRIN T/EXTERNAL (NON-INTERFACE D LABS) eGFR 16 PRINT/EXTE RNAL (NON-INTERFACE D LABS) Blood Venous blood / Unknown 01/17/2025 9:23 AM GEAR GRINDER us Delmis Villanueva NP LAB BLOOD ORDERABLES Final Resu lt Performing Organization Address [facility] Co de Phone Number PRINT/EXTERNAL (NON-INTERFACED LABS) * Cyclosporine level (01/17/2025) Cyclosporine 120 ng/L PRINT/E XTERNAL (NON-INTERFACE D LABS) Blood Venous blood / Unknown 01/17/2025 Narrative PRINT/EXTERNAL (NON-INTERFACED LABS) - 01/17/2025 [place] [address] Delmis Villanueva GUN WELDER LAB BLOOD ORDERABLES Final Resu lt Performing Organization Address City/[facility]/ZIP Co de Phone Number PRINT/EXTERNAL (NON-INTERFACED LABS) * Hemoglobin A1c (01/07/2024) Hemoglobin A1C 5.6 PRINT /EXTERNAL (NON-INTERFACE D LABS) Blood specimen (specimen) Venous blood / Unknown 01/07/2024 Narrative PRINT/EXTERNAL (NON-INTERFACED LABS) - 01/07/[address] [address] Delmis Villanueva GUN WELDER LAB BLOOD ORDERABLES Final Resu lt Performing Organization Address City/[facility]/ZIP Co de Phone Number PRINT/EXTERNAL (NON-INTERFACED LABS) from Last 3 Months or Most Recently Relevant to Health Maintenance Insurance Medicare [facility] Care Teams Sewing Machine Operator Relationship Specialty Start Date End Date Kaleb Daniel MD [address] [place] [address] PCP - General Family Medicine 05/24/24
--- OUTSIDE RECORDS SUMMARY | 2025-03-05 07:56 | XMS_ITS | Encounter Summary ---
Author Organization [facility] Address [address] [address] Phone Care Team Providers Care High School Assistant Football Coach Name Role Phone Kaleb Daniel MD Primary Care Provider [phone] Reason for Visit * Reason Comments Med Refill Encounter Details Date Type Department Care Team (Late Contact Info) Description 05/21/2023 Refill [facility] [address] [address] Emily Mason NP [address] [facility] [address] [place] [address] Social History Tobacco Use Types [...] (Late Contact Info) Description 04/18/2025 9:30 AM TOOL TECHNICIAN Office Visit [facility] [address] [place] [address] Delmis Villanueva NP [address] [facility] [address] [place] [address] documented as of this encounter Visit Diagnoses Not on filedocumented in this encounter Care Teams High School Assistant Football Coach Relationship Specialty Start Date End Date Kaleb Daniel MD [address] [place] [address] PCP - General Family Medicine 05/24/24 documented as of this encounter
--- OUTSIDE RECORDS SUMMARY | 2025-03-05 07:56 | XMS_ITS | Clinical Summary ---
Author Organization [facility] Address [address] [place] [address] Phone Care Team Providers Care Lap Winder Name Role Phone Tim Yan MD, Александр [...] on file Legal Sex Male 2:38 AM MUSICAL INSTRUMENT MAKER OR REPAIRER Gender Identity Not on file Sexual Orientation Not on file Last Filed Vital Signs Vital Sign Reading Time Taken Comments Blood Pressure 146/66 03/19/2017 12:15 PM MUSICAL INSTRUMENT MAKER OR REPAIRER Pulse 62 03/19/2017 12:15 PM MUSICAL INSTRUMENT MAKER OR REPAIRER Temperature 36.7 C (98 F) 03/19/2017 12:15 PM MUSICAL INSTRUMENT MAKER OR REPAIRER Respiratory Rate 16 03/19/2017 12:15 PM MUSICAL INSTRUMENT MAKER OR REPAIRER Oxygen Saturation 94% 03/19/2017 12:15 PM MUSICAL INSTRUMENT MAKER OR REPAIRER Inhaled Oxygen Concentration - - Weight 99.8 kg (220 lb) 03/19/2017 9:16 AM MUSICAL INSTRUMENT MAKER OR REPAIRER Height 175.3 cm (5' 9 ) 03/19/2017 9:16 AM MUSICAL INSTRUMENT MAKER OR REPAIRER Body Mass Index 32.49 03/19/2017 9:16 AM MUSICAL INSTRUMENT MAKER OR REPAIRER Plan of Treatment Health Maintenance Due Date Last Done Comments DTAP/TDAP/TD VACCINES (1 - Tdap) 11/07/1967 PNEUMOCOCCAL VACCINE 50+ YEARS (1 of 1 - PCV) 11/06/18 99 ZOSTER VACCINE (1 of 2) 1998 RSV VACCINE (60+ or ) (1 - 1-dose 75+ series) 11/07/2023 INFLUENZA VACCINE (#1) [address] [place] [phone] [facility]IC[facility] Care Teams Lap Winder Relationship Specialty Start Date End Date Александр Dumont Jr., MD [address] [place] [id number] PCP - General Family Practice 03/19/17
--- OUTSIDE RECORDS SUMMARY | 2025-03-05 07:56 | XMS_ITS | Clinical Summary ---
Author Organization [facility] Address [address] Mendez: Epic Prelude ADT [place] NE[place] [address] Care Team Providers Care Consultant Internship Name Role Phone Unavailable Primary Care Provider [...] Encounters Date Type Department Care Team Description 12/26/2024 External Device Data ST[facility] ABSTRACTION Provider, Abstract 12/12/2024 External Device Data [facility] ABSTRACTION Provider, Abstract from Last 3 Months Social History Tobacco Use Types Packs/Day Years Used Date Smoking Tobacco: Former Tobacco Cessation:Counseling Given: Not Answered Sex and Gender Information Value Date Recorded Sex Assigned at Not on file Legal Sex Male 5:23 AM VISUAL BASIC PROGRAMMER Gender Identity Not on file Sexual Orientation Not on file Last Filed Vital Signs Vital Sign Reading Time Taken Comments Blood Pressure 143/63 03/29/2024 7:43 AM VISUAL BASIC PROGRAMMER Pulse 66 03/29/2024 7:43 AM VISUAL BASIC PROGRAMMER Temperature 36.4 C (97.6 F) 03/29/2024 7:43 AM VISUAL BASIC PROGRAMMER Respiratory Rate 16 03/29/2024 7:43 AM VISUAL BASIC PROGRAMMER Oxygen Saturation 92% 03/29/2024 7:43 AM VISUAL BASIC PROGRAMMER Inhaled Oxygen Concentration - - Weight 120 kg (264 lb 8.8 oz) 03/21/2024 2:00 PM VISUAL BASIC PROGRAMMER Height 172.7 cm (5' 8 ) 09/23/2023 3:03 PM CDT Body Mass Index 40.22 09/23/2023 3:03 PM CDT Plan of Treatment Health Maintenance Due Date Last Done Comments DTAP/TDAP/TD VACCINES (1 - Tdap) 11/07/1967 ZOSTER VACCINE (1 of 2) 11/07/1967 PNEUMOCOCCAL VACCINE 50+ YEA RS (2 of 2 - PPSV23, PCV20, or PCV21) 12/10/2016 10/15/2016 COVID-19 Vaccine (3 - Moderna risk series) 02/07/2021 01/10/2021, 03/28/2020 RSV VACCINE (60+ or ) (1 - 1-dose 75+ series) 11/07/2023 INFLUENZA VACCINE (#1) 2024 12/13/2018, [address] [place] [phone] MEDICARE PART A AND B [facility] [id number]
--- OUTSIDE RECORDS SUMMARY | 2025-03-05 07:56 | XMS_ITS | Encounter Summary ---
Author Organization [facility] Address [address] [place] [address] Phone Care Team Providers Care Computer Education Professor Name Role Phone Kaleb Daniel MD Primary Care Provider [phone] Reason for Visit * Reason Comments Med Refill Encounter Details Date Type Department Care Team (Late Contact Info) Description 09/20/2023 Refill [facility] [address] [place] [address] Patience Segovia MD [address] [place] [address] Social History Tobacco Use Types [...] (Late Contact Info) Description 04/18/2025 9:30 AM TOURIST INFORMATION ASSISTANT Office Visit [facility] [address] [place] [address] Delmis Villanueva NP [address] [address] documented as of this encounter Visit Diagnoses Not on filedocumented in this encounter Care Teams Computer Education Professor Relationship Specialty Start Date End Date Kaleb Daniel MD [address] [place] [address] PCP - General Family Medicine 05/24/24 documented as of this encounter
--- OUTSIDE RECORDS SUMMARY | 2025-03-05 07:56 | XMS_ITS ---
Author Name ALEXANDRA HERNANDES Address [address] [place] [address] Phone Organization [facility] Address [address] [place] [address] Phone Care Team Providers Care Csm Consultant Name Role Phone MD ALEXANDRA HERNANDES Unavailable [phone] ALLERGIES, ADVERSE REACTIONS AND ALERTS Allergy Name Allergy Date Allergy Status Allergy Severity Allergy Reaction UNKNOWN DRUG ALLERGIES MAY E XIST MEDICATIONS RxNorm Brand Name Prescription Ordered Value Order Unit Start Date Date Status Fill Status Indications [id number] donepezil 5 mg tablet SIG: donepezil 5 mg oral tablet, 30 days, Dispense #30 Tablet, 6 Refills, Directions: One po qDay with dinner 30 tablet 2024 Historic [id number] DONEPEZIL 5MG TABLETS 5 mg tablet SIG: donepezil 5 mg oral tablet, 90 days, Dispense #90 Tablet, 0 Refills, Directions: TAKE 1 TABLET BY MOUTH EVERY DAY WITH DINNER 90 tablet 2024 Current PROBLEMS Problem Code Problem Description Problem Status [...] diabetes mellitus with unspecified complications Current 09/14/2024 [id number] KIDNEY FAILURE UNSPECIFIED KIDNEY FAILURE Current 09/14/2024 G47.33-Obstructive sleep apnea (adult) (pediatric) Obstructive sleep apnea (adult) (pediatric) Current 09/14/2024 H91.93-UNSPECIFIED HEARING LOSS, BILATERAL UNSPECIFIED HEARING LOSS, BILATERAL Current 09/14/2024 I73.9-PERIPHERAL VASCULAR DISEASE UNS PERIPHERAL VASCULAR DISEASE UNS Current 09/14/2024 G31.84-Mild cognitive impairment, so stated Mild cognitive impairment, so stated Current 11/26/2024 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
--- OUTSIDE RECORDS SUMMARY | 2025-03-05 07:56 | XMS_ITS | Patient Health Record ---
Author Organization [facility] Address [address] [place] [address] Care Team Providers Care Roadside Mechanic Name Role Phone Kaleb Daniel Primary Care Provider Kaleb Morales Unavailable [phone] Allergies Allergen (clinical drug ingredient) Drug/Non Drug Allergy documented on EMR Reaction Allergy Type Onset Date Status No Known Drug Allergy Unknown Drug Allergy Active Results Component Value Reference Range Notes [place] - [address]96 Reviewed date:06/27/2024 12:01:13 PM Interpretation: Performing Lab: Notes/Report: Glucose 1+ Bili - Ketones - Sp Etlan 1.015 Blood - pH 6.0 Protein 3+ Urobili - Nitrites - Leukocytes - [place]lu [place] - 27976 Reviewed date:02/07/2025 02:24:58 PM Interpretation: Performing Lab: Notes/Report: Glucose 2+ Bili 0 Ketones 0 Sp Etlan 1.015 Blood 0 pH 6.0 Protein 3+ Urobili 0 Nitrites 0 Leukocytes 0 Reason For Referral No Information Medications Medication SIG (Take, Route, Frequency, Duration) Notes Start Date End Date Status Valsartan 160 MG Tablet 1 tablet Orally Once a day Active Aspirin 81 MG Oral Tablet 12/06/2018 Active Vitamin C 250 MG Tablet Chewable 1 tablet Orally Once a day Active Colace 100 MG Capsule 1 capsule as neede d Orally Once a day Active Labetalol HCl 200 MG Tablet 1 tablet Orally Twice a day Not-Taking cycloSPORINE 100 MG Capsule as directed Orally Twice a day Active Finasteride 5 MG Tablet 1 tablet Orally Once a day Active Furosemide 80 MG Tablet 1 tablet Orally bid Active Iron 325 (65 Fe) MG Tablet 1 tablet Oral ly Three times a Week Active Jardiance 10 MG Tablet 1 tablet Orally O nce a day Active metOLazone 2.5 MG Tablet 1 tablet Orally Two times a Week Active Metoprolol Tartrate 100 MG Tablet 1 tablet Orally Twice a day Active Allopurinol 300 MG Tablet 1 tablet Orall y Once a day Active Nitroglycerin 0.4 MG Tablet Sublingual as directed Sublingual Active Amlodipine 10 MG Oral Tablet 12/06/2018 Active Social History Tobacco Use: Social History Observation Description Date Details (start date - stop date) Never Smoker NA - NA Social History Depression Screening Social Info Question Answer Notes PHQ-9 Little interest or pleasure in doing thin gs Not at all Feeling down, depressed, or hopeless Not at all Trouble falling or staying asleep, or sleeping t oo much Not at all Feeling tired or having little energy Not at all Poor appetite or overeating Not at all Feeling bad about yourself, or that you are a failure, or have let yourself or your family down Not at all Trouble concentrating on thi ngs, such as reading the newspaper or watching television Not at all Moving or speaking so slowly that other people could have noticed. Or the opposite ? being so fidgety or restless that you have been moving around a lot more than usual Not at all Thoughts that you would be b axel off , or of hurting yourself in some way Not at all Total Score 0 Drugs/Alcohol: Social Info Question Answer Notes Alcohol Screen (Audit-C) Did you have a drink containing alcohol in the past year? No Points 0 Interpretation Negative Drugs Have you used drugs other than those for medical reasons in the past 12 months? No Tobacco Use: Social Info Question Answer Notes xTobacco Use/Smoking Are you a nonsmoker Tobacco use other than smoking: Are you an other tobacco user? No Additional Details Category Social Info Options Details Migrated Social History Migrated Social History Smoking Status : Former tobacco user , History of tobacco use : Section Notes: admits caffeine denies alcohol admits caffeine denies alcohol admits caffeine denies alcohol admits caffeine denies alcohol admits caffeine denies alcohol Problems Problem Type SNOMED Code ICD Code Onset Dates Problem Status W/U Status Risk Notes Problem Obstructive sleep apnea syndrome (disorder) (22609033) Obstructive sleep apnea (adult) (pediatric) (G47.33) Active confirmed Problem Chronic pain syndrom e (909527028) Chronic pain syndrome (G89.4) Active confirmed Problem Chronic kidney disease due to hypertension (894463093521878) Hypertensive chronic kidney disease with stage 1 through stage 4 chronic kidney disease, or unspecified chronic kidney disease (I12.9) Active confirmed Problem Acute non-ST segment elevation myocardial infarction (126867424) Non-ST elevation (NSTEMI) myocardial infarction (I21.4) Active confirmed Problem Angina (081764745) Atherosclerot ic heart disease of [place] coronary artery with unspecified angina pectoris (I25.119) Active confirmed Problem Aortic valve disorde r (7517187) Nonrheumatic aortic (valve) insufficiency (I35.1) Active confirmed Problem Chronic systolic heart failure (057153456) Chronic systolic (congestive) heart failure (I50.22) Active confirmed Problem Localized, primary osteoarthritis of the pelvic region and thigh (276407931) 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) Active confirmed Problem History of percutaneous transluminal coronary angioplasty (situation) (184731394) Coronary angioplasty status (Z98.61) Active confirmed Problem Benign prostatic hypertrophy without outflow obstruction (898202849) Benign prostatic hyperplasia without lower urinary tract symptoms (N40.0) Active confirmed Problem Iron deficiency anemia (60462182) Other iron deficiency anemia (D50.8) Active confirmed Problem hypercholesterolemia (disorder) (78656308) Hypercholesteremia (E78.00) Active confirmed Problem Atherosclerosis of coronary artery without angina pectoris (071569426356503) Atherosclerosis of [place] coronary artery of [place] heart without angina pectoris (I25.10) Active confirmed Problem Personal history of primary malignant neoplasm of urinary bladder (665024929) History of bladder cancer (Z85.51) Active confirmed Problem Hyperlipidemia (58553658) Hyperlipidemia (E78.5) Active confirmed Problem Hypertensive heart AND chronic kidney disease with congestive heart failure (disorder) (10827709396710) Cardiorenal syndrome with renal failure, stage 1-4 or unspecified chronic kidney disease, with heart failure (I13.0) Active confirmed Problem Chronic kidney disease stage 3 (disorder) (267958430) Chronic kidney disease, stage 3 unspecified (N18.30) Active confirmed Problem Abdominal aortic aneurysm without rupture (disorder) (50434864) Abdominal aortic aneurysm (AAA) without rupture, unspecified part (I71.40) Active confirmed Problem Elevated PSA (401002496) Elevated prostate specific antigen (PSA) (790.93) 2016 Active confirmed [id number]- Problem 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 (440.21) 2016 Active confirmed [id number]- Problem Acquired hypothyroidism (963328902) Acquired hypothyroidism (244.8) 2016 Active confirmed [id number]- Problem Essential hypertension (33706338) Essential hypertension (401.1) 2016 Active confirmed [id number]- Problem Cough (07101805) Cough (786.2) 2016 Problem resolved confirmed [id number]- Problem Proteinuria (54201475) Proteinuria (791.0) 2016 Problem resolved confirmed [id number]- Problem Low back pain (037110208) Low back pain (724.2) 2016 Problem resolved confirmed [id number]- Problem Disorder of hematopoietic system (07514166) Other abnormal findings on blood examination (790.99) 2016 Problem resolved confirmed [id number]- Problem Impaired fasting glycaemia (762739096) Elevated fasting glucose (790.21) 2016 Problem resolved confirmed [id number]- Problem Ankle mass (719.67) 2016 Problem resolved confirmed [id number]- Problem Needs influenza immunization (556758080) Vaccination against other viral diseases, Influenza (V04.81) 2016 Problem resolved confirmed [id number]- Problem Benign prostatic hypertrophy (508574002) BPH (600.00) 2016 Problem resolved confirmed [id number]- Problem Nephrotic syndrome (97649981) Nephrotic syndrome, NOS (581.9) 2016 Problem resolved confirmed [id number]- Problem Impacted cerumen (10480936) External cerumen impaction (380.4) 2016 Problem resolved confirmed [id number]- Problem Hemorrhoids (disorder) (31344813) Hemorrhoids, external (455.3) 2016 Problem resolved confirmed [id number]- Problem Nephrotic syndrome with membranous glomerulonephritis (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) Glomerulosclerosis with nephrotic syndrome (581.1) 2017 Problem resolved confirmed [id number]- Problem Inflammatory disease of prostate, other (601.8) 2016 Problem resolved confirmed [facility]-98 5911- Vital Signs Heart Rate 63 /min 02/07/2025 Temperature 99.5 degrees Fahrenheit 02/07/2025 Blood pressure diastolic 68 mm Hg 02/07/2025 Height-cm 172.72 cm 02/07/2025 Weight-kg 105.51 kg 02/07/2025 Height 68.00 in 02/07/2025 Blood pressure systolic 172 mm Hg 02/07/2025 Weight 232.6 lbs 02/07/2025 BMI 35.36 kg/m2 02/07/2025 Encounters Encounter Location Date Provider Diagnosis [facility] [address] [place] [address] Dr Peter [address] [place] [address] 02/07/2025 Kaleb Tidwell History of bladder cancer Z85.51 [facility] [address] [place] [address] [place] [address] 06/27/2024 Kaleb Tidwell Personal history of malignant neoplasm of bladder Z85.51 [facility] [address] [place] [address] Dr Peter [address] [place] [address] 06/27/2024 Kaleb Tidwell Encounter for screening for malignant neoplasm of prostate Z12.5 [facility] [address] [place] [address] Dr Peter [address] [place] [address] 06/27/2024 Kaleb Tidwell [facility] [address] [place] [address] Dr Peter [address] [place] [address] 02/07/2025 Kaleb Tidwell Benign prostatic hyperplasia without lower urinary tract symptoms N40.0 [facility] [address] [place] [address] Dr Peter [address] [place] [address] 02/07/2025 Kaleb Tidwell [facility] [address] [place] [address] Dr Peter [address] [place] [address] 12/27/2024 Kaleb Tidwell [facility] [address] [place] [address] Dr Peter [address] [place] [address] 07/10/2024 Kaleb Tidwell Encounter for screening for malignant neoplasm of prostate Z12.5 Assessments Encounter Date Diagnosis (ICD Code) Assessment Notes Treatment Notes Treatment Clinical Notes Section Notes 07/10/2024 Encounter for screening for malignant neoplasm of prostate (ICD-10 - Z12.5) 06/27/2024 Encounter for screening for malignant neoplasm of prostate (ICD-10 - Z12.5) 06/27/2024 Personal history of malignant neoplasm of bladder (ICD-10 - Z85.51) 02/07/2025 Benign prostatic hyperplasia without lower urinary tract symptoms (ICD-10 - N40.0) 02/07/2025 History of bladder cancer (ICD-10 - Z85.51) 06/27/2024 Other Cystoscopy in 6 months Urine for FISH current psa. 02/07/2025 Other 6 months for cystoscopy with CT abdomen and pelvis with and without IV contrast Plan Of Treatment Pending Test Test Name Order Date Creatinine (B) 87539 02/07/2025 PSA Diagnostic--69333 06/27/2024 PSA Diagnostic--37981 07/10/2024 Future Test Test Name Order Date Blood Urea Nitrogen (BUN) 82347 07/07/[address] Abdomen, Pelvis w/ + w/o Contrast-741 78 07/06/2025 Next Appt Details Provider Name:Kaleb sanders, 08/08/2025 02:10:00 PM, [address], [place], [address], Insurance Providers Payer Name Payer Address Payer Phone Subscriber Number Group Number Insured Name Patient Relationship to Insured Coverage Start Date Coverage End Date [place] [address] [place] [phone] [id number] WILBUR LY Self - patient is the insured AARP Medicare Advantage [place] [address] [address] [place] [phone] [id number] WILBUR LY Self - patient is the insured Medical (General) History Medical History History ICD Code Problem:Hypertensive disorde r, systemic arterial (disorder) , Status :: Active Problem:Hypothyroidism (disorder) , Stat us :: Active measles Varicella without complication B01.9 Arthritis hemorrhoids bronchitis bladder infections Alzheimer's Surgical History Surgery Date(Month/Year) cath 07-28-2022 surgery due to bladder cancers knee replacement left
--- OUTSIDE RECORDS SUMMARY | 2025-03-05 07:56 | XMS_ITS | Encounter Summary ---
Author Organization [facility] Address [address] [facility] [address] [place] [address] Phone Care Team Providers Care Wick And Base Assembler Name Role Phone Kaleb Daniel MD Primary Care Provider [phone] Encounter Details Date Type Department Care Team (Late Contact Info) Description 10/24/2018 Orders Only [email or web address] [address] [place] [address] Johnny Faust MD Chronic kidney disease stage 3 Social History [...] st Contact Info) Description 04/18/2025 9:30 AM OIL CHANGE TECHNICIAN Office Visit [facility] [address] [place] [address] Delmis Villanueva BOX WORKER [address] [place] [address] [place] [address] documented as of this encounter [...] specimen (specimen) 10/26/2018 9:16 AM CDT Jose OlegHeena MA - 10/27/2018 10:08 AM CDT architectural project captain lab [facility] [address] [place] [address] Irrigation Supervisor: Aric Barnett DO MPH CLIA: [id number] Johnny Faust MD LAB BLOOD ORDERABLES Fi nal Result * (ABNORMAL) Urine albumin / creatinine ratio (10/26/2018 9:16 AM CDT) Creatinine, Ur 116 mg/dL Microalbumin 106.9 Microalb/Creat Ratio 922(A) 30 - 300 mg/g Creat Urine specimen (specimen) 10/26/2018 9:16 AM CDT Carolina Etienne LPN - 10/28/2018 9:42 AM CDT ACCOUNT MANAGEMENT ASSISTANT lab [facility] [place] [address] [place] [address] Irrigation Supervisor: Aric Barnett DO MPH CLIA: [id number] Johnny Faust MD LAB URINE ORDERABLES Fi nal Result * CBC (CKD3a) (10/26/2018 9:16 AM CDT) WBC 7.3 K/uL Red Blood Cell Count [...] Blood specimen (specimen) 10/26/2018 9:16 AM CDT Narrative Heena Dejesus MA - 10/27/2018 10:06 AM CDT architectural project captain lab [facility] [place] [address] [place] [address] Irrigation Supervisor: Aric Barnett DO MPH CLIA: [id number] Johnny Faust MD LAB BLOOD ORDERABLES Fi nal Result * RFP (CKD3a) (10/26/2018 9:16 AM CDT) Albumin 3.9 3.5 - 5.0 g/dL BUN [...] Blood specimen (specimen) 10/26/2018 9:16 AM CDT Narrative Carolina Laguna LPN - 10/28/2018 9:42 AM CDT ACCOUNT MANAGEMENT ASSISTANT lab [facility] [place] [address] [place] [address] Irrigation Supervisor: Aric Barnett DO MPH CLIA: [id number] Johnny Faust MD LAB BLOOD ORDERABLES Fi nal Result documented in this encounter Visit Diagnoses Diagnosis Chronic kidney disease stage 3 (HCC) documented in this encounter Care Teams Wick And Base Assembler Relationship Specialty Start Date End Date Kaleb Daniel MD [address] [place] [id number] PCP - General Family Medicine 05/24/24 documented as of this encounter
--- OUTSIDE RECORDS SUMMARY | 2025-03-05 07:56 | XMS_ITS | Encounter Summary ---
Author Organization [facility] Address [address] [place] [address] Phone Care Team Providers Care Development Rep Name Role Phone Kaleb Daniel MD Primary Care Provider [phone] Encounter Details Date Type Department Care Team (Late st Contact Info) Description 05/06/2019 Orders Only [facility] [address] [place] [address] Rainer Anderson NP Chronic kidney disease [...] st Contact Info) Description 04/18/2025 9:30 AM STEEL PAN FORM PLACING SUPERVISOR Office Visit [facility] [address] [place] [address] Delmis Villanueva NP [address] [place] [place] [address] documented as of this encounter Visit Diagnoses Diagnosis Chronic kidney disease stage 3 (HCC) documented in this encounter Care Teams Development Rep Relationship Specialty Start Date End Date Kaleb Daniel MD [address] [place] [phone] PCP - General Family Medicine 05/24/24 documented as of this encounter
--- OUTSIDE RECORDS SUMMARY | 2025-03-05 07:56 | XMS_ITS ---
Author Organization [facility] Address [address] [facility] [address] Mendez: Epic Prelude ADT [place]ATE[place] NEFF [address] Care Team Providers Care Ankle Patch Molder Name Role Phone Unavailable Primary Care Provider [...]
--- OUTSIDE RECORDS SUMMARY | 2025-03-05 07:56 | XMS_ITS | Encounter Summary ---
Author Organization [facility] Address [address] [facility] [address] [place] [address] Phone Care Team Providers Care Automotive Specialty Technician Name Role Phone Kaleb Daniel MD Primary Care Provider [phone] Encounter Details Date Type Department Care Team (Late Contact Info) Description 05/24/2018 Orders Only [facility] [address] [place] [address] Johnny Faust MD Chronic kidney disease [...] st Contact Info) Description 04/18/2025 9:30 AM PIPE FINISHER Office Visit [facility] [address] [place] [address] Delmis Villanueva CALENDER RUNNER [address] [place] [place] [address] documented as of this encounter Procedures Procedure Name Priority Date/Time Associated Diagnosis Comments RENAL FUNCTION PANEL Routine 05/24/2018 Chronic kidney disease stage 3 documented in this encounter Results * (ABNORMAL) Renal function panel (05/24/2018) Albumin 3.9 3.5 - 5.0 G/DL Comment:Janusz [id number] [facility] BUN 24(A) 4 - 21 mg/dL Calcium 9.5 8.7 - 10.7 mg/dL Chloride 103 99 - 108 Bicarbonate (CO2) 29 22 - 30 mmol/L Creatinine 1.33(A) 0.60 - 1.30 mg/dL eGFR 63.0 mL/min/1.7 3m*2 eGFR Non- 54.0 mL/min/1.7 3m*2 Glucose 103 Phosphorus, Serum 4.3 Potassium 3.9 3.4 - 5.5 Sodium 142 137 - 147 Blood specimen (specimen) Venous blood / Unknown 05/24/2018 Johnny Faust MD LAB BLOOD ORDERABLES Fi nal Result documented in this encounter Visit Diagnoses Diagnosis Chronic kidney disease stage 3 (HCC) documented in this encounter Care Teams Automotive Specialty Technician Relationship Specialty Start Date End Date Kaleb Daniel MD [address] [place] [phone] PCP - General Family Medicine 05/24/24 documented as of this encounter
[2025-03-05 08:09] LABS: Hematocrit 34.7 % (37-53); Hemoglobin 11.40 g/dL (11.27-16.99); Mean Corpuscular HGB Conc 32.9 g/dL (30-55); Mean Corpuscular Hemoglobin 28.9 pg (27-33); Mean Corpuscular Volume 87.8 fl (82-101); Nucleated Red Blood Cells % 0 %; Platelet Count 301 10^3/cmm (157-399); Red Blood Count 3.95 10^6/uL (3.85-5.65); White Blood Count 12.42 10^3/uL (3.29-11.43)
--- NOTE | 2025-03-05 08:16 | W.ED.CHESTPA ---
HPI - Chest Pain General: Chief Complaint: Chest Pain Stated Complaint: chest pressure Time Seen by Provider: 03/05/25 07:51 Source: patient Mode of arrival: ambulatory Limitations: no limitations History of Present Illness: 74-year-old male states he woke up this morning having some slight chest pain along with shortness of breath. Patient states it lasted roughly 30 minutes but has since resolved. He states he feels at his baseline currently denies any chest pain currently denies any shortness of breath. Does has a history of chronic kidney disease along with heart failure. He denies any recent swelling or weight gain Associated symptoms: Reports dyspnea Related Data Home Medications ?Medication ?Instructions ?Recorded ?Confirmed empagliflozin 10 mg tablet 10 mg PO DAILY 02/21/24 10/17/24 (Jardiance) Held on 10/21/24. Instructions: see pcp finasteride 5 mg tablet 5 mg PO DAILY 02/21/24 10/17/24 ascorbic acid (vitamin C) 500 mg 500 mg PO DAILY 09/06/24 10/17/24 capsule aspirin 81 mg tablet 81 mg PO DAILY 09/06/24 10/17/24 cholecalciferol (vitamin D3) 25 25 mcg PO DAILY 09/06/24 10/17/24 mcg (1,000 unit) capsule lactobacillus combination no.9 4 4,000 mmu cells PO DAILY 09/06/24 10/17/24 billion cell capsule (Adult 50 Plus Probiotic) sodium bicarbonate 650 mg tablet 650 mg PO BID 09/06/24 10/17/24 Previous Rx's ?Medication ?Instructions ?Recorded cyclosporine 100 mg capsule 100 mg PO BID #60 caps 11/11/21 nitroglycerin 0.4 mg sublingual 0.4 mg sublingual Q5M PRN chest 08/26/23 tablet pain #20 tabs allopurinol 300 mg tablet See Rx Instructions .Route 05/24/24 .COMPLEX #90 tabs amlodipine 10 mg tablet See Rx Instructions .Route 07/14/24 .COMPLEX #30 tabs levothyroxine 175 mcg tablet 175 mcg PO DAILY #90 tabs 07/26/24 rosuvastatin 20 mg tablet 20 mg PO DAILY #90 tabs 09/06/24 furosemide 40 mg tablet 40 mg PO DAILY #120 tabs 10/20/24 hydralazine 50 mg tablet 50 mg PO TID #90 tabs 10/21/24 metoprolol succinate 50 mg 50 mg PO DAILY #30 tabs 10/21/24 tablet,extended release 24 hr potassium chloride 20 mEq See Rx Instructions .Route 02/13/25 tablet,extended release .COMPLEX #180 tabs Allergies Allergy/AdvReac Type Severity Reaction Status Date / Time valsartan Allergy Intermediate angioedema Verified 10/17/24 15:03 Review of Systems Card: Reports: chest pain Resp: Reports: dyspnea PFSH ED PFSH: Medical History (Updated 03/05/25 @ 09:58 by Sara Haas MD) Sleep apnea Dyslipidemia Abdominal aortic aneurysm (AAA) Bladder cancer Aortic insufficiency with aortic stenosis Hypertension Gout Chronic kidney disease, stage III (moderate) Surgical History No pertinent past surgical history Social History Smoking and tobacco/nicotine status: never used tobacco/nicotine Substance/Drug Use: never Physical Exam Const: COMMON NORMALS: patient oriented x3 HENMT: COMMON NORMALS: normocephalic and atraumatic HEAD & SCALP: normocephalic and atraumatic Eye: COMMON NORMALS: Equal, round and reactive pupils present and EOMs intact bilaterally PUPIL: Yes Equal, round and reactive pupils present Neck/C-Spine: COMMON NORMALS: full ROM and supple Chest: COMMONS NORMALS: normal inspection of the chest and normal palpation of entire chest wall Resp: COMMON NORMALS: normal respiratory effort, No retractions, No use of accessory muscles and clear to auscultation bilaterally AUSCULTATION: clear to auscultation bilaterally Cardio: COMMON NORMALS: regular rate, regular rhythm and No murmurs present (Cardio) RATE: regular rate RHYTHM: regular rhythm GI: COMMON NORMALS: Normal to inspection, nondistended, normoactive bowel sounds present, Soft to palpation, non-tender and no masses PALPATION: Yes Soft to palpation Extremity: COMMON NORMALS: normal to inspection and full ROM Neuro: COMMON NORMALS: patient oriented x3, moves all extremities and no focal motor deficits Psych: COMMON NORMALS: mental status grossly normal, Normal thought process present and cooperative THOUGHT PROCESS: Normal thought process present Skin: COMMON NORMALS: no rashes or lesions noted and no wounds GENERAL SKIN EXAM: no rashes or lesions noted Course Vital Signs: Vital signs: Vital Signs Temperature 98.3 F 03/05/25 07:50 Pulse Rate 67 03/05/25 10:20 Respiratory Rate 16 03/05/25 07:50 Blood Pressure 181/80 03/05/25 10:20 Pulse Oximetry 93 03/05/25 10:20 Oxygen Delivery Pr thod Room Air 03/05/25 09:30 MDM - Chest Pain Medical Decision Making Patient presents for chest pain that has since resolved differential includes pneumonia, pulm emboli, ACS. Patient chest x-ray showed no acute abnormalities his 2-hour troponin went down I do not believe this is ACS he has been pain-free here this pain only lasted a very short amount of time his pain is very atypical in nature. X-ray here was interpreted by me showed no acute abnormalities no signs of pneumonia or pneumothorax. 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 Lab Data I reviewed the patient's lab results. 03/05/25 08:00 03/05/25 08:00 Radiology Impressions Chest X-Ray 03/05/25 07:48 Impression: Cardiomegaly and atherosclerosis. Laboratory Results WBC 12.42 10^3/uL (3.29-11.43) H 03/05/25 08:00 RBC 3.95 10^6/uL (3.85-5.65) 03/05/25 08:00 Hgb 11.40 g/dL (11.27-16.99) 03/05/25 08:00 Hct 34.7 % (37-53) L 03/05/25 08:00 MCV 87.8 fl (82-101) 03/05/25 08:00 MCH 28.9 pg (27-33) 03/05/25 08:00 MCHC 32.9 g/dL (30-55) 03/05/25 08:00 RDW 16.1 % (12.1-15.1) H 03/05/25 08:00 Plt Count 301 10^3/cmm (157-399) 03/05/25 08:00 MPV 10.4 fL (7.4-10.4) 03/05/25 08:00 Neut % (Auto) 62.0 % 03/05/25 08:00 Lymph % (Auto) 26.6 % 03/05/25 08:00 [place] % (Auto) 7.7 % 03/05/25 08:00 Eos % (Auto) 2.0 % 03/05/25 08:00 Baso % (Auto) 0.8 % 03/05/25 08:00 Neut # (Auto) 7.70 10^3/uL (1.8-7.7) 03/05/25 08:00 Lymph # (Auto) 3.3 10^3/uL (0.8-4.8) 03/05/25 08:00 [place] # (Auto) 1.0 10^3/uL (0.2-0.9) H 03/05/25 08:00 Eos # (Auto) 0.3 10^3/uL (0.0-0.8) 03/05/25 08:00 Baso # (Auto) 0.1 10^3/uL (0.0-0.1) 03/05/25 08:00 Nucleated RBC % (auto) 0 % 03/05/25 08:00 Nucleated RBCs # 0.0 /100WBC 03/05/25 08:00 Sodium 140 mmol/L (136-145) 03/05/25 08:00 Potassium 3.7 mmol/L (3.5-5.1) 03/05/25 08:00 Chloride 102 mmol/L (98-107) 03/05/25 08:00 Carbon Dioxide 21 mmol/L (22-29) L 03/05/25 08:00 Anion Gap 20.7 (5-19) H 03/05/25 08:00 BUN 24 mg/dL (8-23) H 03/05/25 08:00 Creatinine 3.7 mg/dL (0.7-1.2) H 03/05/25 08:00 GFR Calculation Not Reportable 03/05/25 08:00 Glucose 99 mg/dL (65-115) 03/05/25 08:00 Calculated Osmolality 294 mOsm/kg (285-295) 03/05/25 08:00 Calcium 8.1 mg/dL (8.5-10.5) L 03/05/25 08:00 Total Bilirubin 0.6 mg/dL (0.15-1.2) 03/05/25 08:00 AST 11 U/L (0-40) 03/05/25 08:00 ALT 7 U/L (0-41) 03/05/25 08:00 Alkaline Phosphatase 95 U/L (40-130) 03/05/25 08:00 Troponin T Baseline 67 ng/L (0-15) H 03/05/25 08:00 Troponin T 60 Minute 64.30 ng/L (0-15) H 03/05/25 09:12 Delta Troponin T -2.70 ABS# (0-10) L 03/05/25 09:12 Total Protein 6.1 g/dL (6.6-8.7) L 03/05/25 08:00 Albumin 3.9 g/dL (3.5-5.2) 03/05/25 08:00 Globulin 2.2 g/dL (1.3-4.6) 03/05/25 08:00 Lipase 29 U/L (13-60) 03/05/25 08:00 All radiology interpretation(s) finalized by discharge Discharge Plan Discharge Patient Disposition: Home Clinical Impression: Chest pain Condition: Stable Prescriptions: No Action cyclosporine 100 mg capsule 100 mg PO BID Qty: 60 11RF nitroglycerin 0.4 mg tablet, sublingual 0.4 mg sublingual Q5M PRN (Reason: chest pain) Qty: 20 11RF Rx Instructions: do not exceed 3 doses per episode finasteride 5 mg tablet 5 mg PO DAILY Jardiance 10 mg tablet 10 mg PO DAILY sodium bicarbonate 650 mg tablet 650 mg PO BID aspirin 81 mg tablet 81 mg PO DAILY cholecalciferol (vitamin D3) 25 mcg (1,000 unit) capsule 25 mcg PO DAILY Adult 50 Plus Probiotic 4 billion cell capsule 4,000 mmu cells PO DAILY Rx Instructions: administer with a meal ascorbic acid (vitamin C) 500 mg capsule 500 mg PO DAILY rosuvastatin 20 mg tablet 20 mg PO DAILY Qty: 90 3RF levothyroxine 175 mcg tablet 175 mcg PO DAILY Qty: 90 3RF Rx Instructions: TAKE 1 TABLET BY MOUTH EVERY DAY allopurinol 300 mg tablet See Rx Instructions .ROUTE .COMPLEX Qty: 90 3RF Dose Instruction: TAKE 1 TABLET BY MOUTH EVERY DAY FOR GOUT Rx Instructions: TAKE 1 TABLET BY MOUTH EVERY DAY FOR GOUT amlodipine 10 mg tablet See Rx Instructions .ROUTE .COMPLEX Qty: 30 11RF Dose Instruction: TAKE 1 TABLET BY MOUTH DAILY Rx Instructions: TAKE 1 TABLET BY MOUTH DAILY potassium chloride 20 mEq tablet extended release See Rx Instructions .ROUTE .COMPLEX Qty: 180 3RF Dose Instruction: TAKE 1 TABLET BY MOUTH TWICE DAILY NEEDED IF TAKING LASIX Rx Instructions: TAKE 1/2 TABLET BY MOUTH TWICE DAILY NEEDED IF TAKING LASIX furosemide 40 mg tablet 40 mg PO DAILY Qty: 120 11RF hydralazine 50 mg tablet 50 mg PO TID Qty: 90 0RF metoprolol succinate 50 mg tablet extended release 24 hr 50 mg PO DAILY Qty: 30 0RF Discharge Orders: Discharge ED (Routine); Ordered 03/05/25 Ordered By: Sara Haas Referrals: Kaleb Daniel MD [Primary Care Provider, Family Practice] - 4-7 days Discharge Diet: Advance as tolerated Discharge Activity: Resume usual activity Patient Instructions: Chest Pain (ED) Print Language: Bulgarian Coding Level of Care Code ED Implementation Specialist Payroll for Chg Fwd Heart Score HEART Score Components History: Slightly Suspicous EKG: Normal Age: 65 or more yrs Risk Factors: 1 or 2 Risk Factors Troponin: Baseline Trop >45 ng/L HEART Score RESULT HEART Score: 5
[2025-03-05 08:28] LABS: Troponin(5th) Baseline 67 ng/L (0-15)
[2025-03-05 08:37] LABS: Alanine Aminotransferase 7 U/L (0-41); Albumin Level 3.9 g/dL (3.5-5.2); Alkaline Phosphatase 95 U/L (40-130); Anion Gap 20.7 (5-19); Aspartate Amino Transferase 11 U/L (0-40); Blood Urea Nitrogen 24 mg/dL (8-23); Calcium 8.1 mg/dL (8.5-10.5); Carbon Dioxide 21 mmol/L (22-29); Chloride 102 mmol/L (98-107); Globulin 2.2 g/dL (1.3-4.6); Glucose 99 mg/dL (65-115); Lipase 29 U/L (13-60); Osmolality Calculated 294 mOsm/kg (285-295); Potassium 3.7 mmol/L (3.5-5.1); Sodium 140 mmol/L (136-145); Total Protein 6.1 g/dL (6.6-8.7)
--- NOTE | 2025-03-05 08:48 | ECG_ITS ---
[facility] [place] Test Date: 2025-03-05 Pat Name: Emanuel Mcneal Department: Room: Gender: Male Residential Substance Abuse Counselor: : [id number] Requested By: Sara Haas Order Number: [id number] Reading MD: BETHANIE KWON Measurements Intervals [place] Rate: 69 P: 36 CO: 165 QRS: 11 QRSD: 117 T: 134 QT: 433 QTc: 465 Interpretive Statements SINUS RHYTHM MODERATE INTRAVENTRICULAR CONDUCTION DELAY [110+ ms QRS DURATION] MODERATE T-WAVE ABNORMALITY, CONSIDER LATERAL ISCHEMIA [-0.1+ mV T-WAVE IN I/aVL/V5/V6] Compared to ECG 03/05/2025 08:18:20 Atrial fibrillation no longer present T-wave abnormality still present Possible ischemia still present Electronically Signed On 03-08-2025 18:53:13 [employer]EL [employer] by BETHANIE KWON [email or web address]
[2025-03-05 09:30] VITALS: BP 171/76; PULSE 69; O2SAT 94
[2025-03-05 10:20] VITALS: BP 181/80; PULSE 67; O2SAT 93
== END 2025-03-05 10:21 | disposition home or self-care (01) ==
PROVIDERS: Emergency Provider Emergency Medicine; PCP Family Medicine
DX: R07.9 Chest pain, unspecified (principal); Z79.82 Long term (current) use of aspirin; E78.5 Hyperlipidemia, unspecified; I12.9 Hypertensive chronic kidney disease with stage 1 through stage 4 chronic kidney disease, or unspecified chronic kidney disease; N18.30 Chronic kidney disease, stage 3 unspecified; Z85.51 Personal history of malignant neoplasm of bladder
CPT/HCPCS: 36415; 71045; 80053; 83690; 84484; 85025; 93005; 99285